=== PATIENT | male | born 1955 | race Caucasian/White ===

== ENCOUNTER 2017-05-18 17:28 | Inpatient (IN) ==
[2017-05-18] MEDS ORDERED: Naloxone 0.4 MG/ML INJ IVP PRN (21:56)
[2017-05-18] MEDS ORDERED: Furosemide 20 MG TABLET PO ONE (22:08)
--- NOTE | 2017-05-18 22:10 | Internal Med History&Physical ---
<Rand Gregorio - Last Filed: 05/18/17 23:12> Date of Encounter: 05/18/17 Time of Encounter: 21:20 Assessment and Plan (1) Anemia Current visit: Yes Status: Acute Symptomatic Anemia. Hemoglobin 4.3, received 1 unit PRBC at [facility]. Shortness of breathe resolved since transfusion. Dizziness and headache. May be iron deficiency or anemia of chronic dz, Suspect malignancy. Diet may contribute as well since he eats 1 meal a day. MCV 90, RDW 20.2, Bilirubin 1.2 Vital signs stable, patient has no complaints Stool occult negative No active bleeding Ct Abd demonstrated sclerotic lesions in chest, abdomen, pelvis. 0.5cm pulmonary nodule in right lower lung. plan: 2 units PRBC ordered EGD tomorrow by Dr. Shane NPO one time dose lasix ordered iron panel, ferritin, LDH, haptoglobin, reticuloctyes, B12, folate Consult Hem/ Onc tomorrow morning Qualifiers: Anemia type: unspecified type Qualified Code(s): D64.9 - Anemia, unspecified (2) Suspected malignant neoplasm Current visit: Yes Status: Acute Pancytopenia. Consider prostate cancer. Abd CT demonstrated sclerotic lesions in chest, abdomen, pelvis. 0.5cm pulmonary nodules in right lower lung. Smoker 1ppd/ 30years colonoscopy 5years ago with 1 benign polyp Ca 8.2 minimal low, Alk phos 53 Plan: check PSA Consult Hem/onc see plan above (3) Pancytopenia Current visit: No Status: Acute Pancytopenia of unknown origin, suspect malignancy. Consider prostate cancer. Hgb 4.3 platelets [address] Abd demonstrated sclerotic lesions in chest, abdomen, pelvis. 0.5cm pulmonary nodule in right lower lung. see plan above (4) Anxiety Current visit: Yes Status: Acute history of anxiety and depression continue home xanax and citalopram (5) Tobacco abuse Current visit: Yes Status: Acute current smoker 1ppd/ 30years (6) DVT prophylaxis Current visit: Yes Status: Acute ambulatory TID Internal Medicine - H&P: HPI Chief complaint: shortness of breathe Admitted From: Home Plans for Post Hospital Care: Home History of present illness: Mr. Lopez is a 61 year old male with a past medial history of depression and anxiety who presents to the hospital from [facility] by EMS complaining of shortness of breathe. He stated that it started 2 weeks ago and has been progressively getting worse. He stated that exerting himself makes it worse and that rest makes it better. He reported dizziness, non productive cough, and headaches (everyday, relieved with excedrin). He reported 2 days of leg cramping that resolved with oral hydration. He went to his PCP yesterday and had blood work drawn, for which his PCP called him today and instructed him to go to the hospital due to low hemoglobin. He only eats one meal a day. He reports bilateral inguinal lymphadenopathy that has been biopsied and is benign. He denied fever, chills, night sweats, hemoptysis, wheezing, abdominal pain, melena, weakness, syncope, hematuria, dysuria, significant weight decrease. He had a colonoscopy 5 years ago and had a benign polyp. He denies family history of cancer or heart disease. Current smoker 1ppd/ 30 years. He denied recent sickness or travel. He is a full code. Past Med Surg Social Fam HX - Past Medical History Medical history: no medical history Psychiatric history: anxiety, depression - Past Surgical History Surgical History: orthopedic, other (right ankle ) - Social History Smoking Status: Current every day smoker (1ppd/ 30years) Packs per day: 1 Smokeless Tobacco Status: No Alcohol use: none Drug use: none Current living situation: Home Activity Level: Independent ambulation Recent Out of Country Travel Within the Last 8 Weeks: No - Family History Grandmother Living Status: Hx Family Cancer: Yes (colon cancer) Internal Medicine - H&P: Meds Alprazolam [Xanax] 2 mg PO TID 05/18/17 [History] Citalopram Hydrobromide [Citalopram HBr] 40 mg PO DAILY 05/18/17 [History] 3 Allergy/AdvReac Type Severity Reaction Status Date / Time No Known Allergies Allergy Verified 05/18/17 15:37 All Systems PM: A 10-system review of systems was performed and is negative for pertinent findings except as documented above in the HPI. - Constitutional Constitutional: no chills, no fever(s), no night sweats, no weakness - EENT Eyes: no blurry vision, no change in vision Nose, mouth and throat: no dysphagia, no mouth lesions, no odynophagia - Cardiovascular Cardiovascular ROS IM: no chest pain, no diaphoresis, no palpitations, no syncope - Respiratory Respiratory: cough, dyspnea on exertion, no hemoptysis, no wheezing, no excessive phlegm production - Gastrointestinal Gastrointestinal: no abdominal pain, no diarrhea, no hematemesis, no hematochezia, no melena, no nausea, no vomiting - Genitourinary Genitourinary ROS male: no difficulty urinating, no dysuria, no hematuria - Musculoskeletal Musculoskeletal ROS IM: muscle cramps, no back pain, no muscle weakness - Integumentary Integumentary IM: no rash, no skin ulcer - Neurological Neurological ROS: dizziness, headache(s), no confusion, no frequent falls - Constitutional Vitals: Temp Pulse Resp BP Pulse Ox 98 F 79 20 133/79 98 05/18/17 20:17 05/18/17 20:17 05/18/17 20:17 05/18/17 20:17 05/18/17 20:17 General appearance: Present: A&O X 3, pleasant, no acute distress - Head Head exam: Present: atraumatic, normal inspection, normocephalic - Eye Eye exam: Present: conjuntiva pink - Neck Neck exam general surgery: Present: normal inspection, supple. Absent: lymphadenopathy, tenderness - Respiratory Respiratory exam: Present: CTAB. Absent: rales, rhonchi, wheezes - Cardiovascular Cardiovascular exam: Present: RRR, +S1, +S2. Absent: rubs, systolic murmur - GI/Abdominal GI/Abdominal exam: Present: normal bowel sounds, soft. Absent: guarding, tenderness - Extremities Exam Extremities exam: Present: normal inspection. Absent: joint swelling, pedal edema, tenderness - Back Exam Back exam: Present: normal inspection. Absent: CVA tenderness (L), CVA tenderness (R), paraspinal tenderness, tenderness, vertebral tenderness - Neurological Exam Neurological exam: Present: alert, oriented X3. Absent: altered, no focal deficits - Skin Skin exam: Present: dry, intact. Absent: petechiae, rash <Kosta Henderson - Last Filed: 05/18/17 23:34> Date of Encounter: 05/18/17 Internal Medicine - H&P: HPI History of present illness: Mr. Lopez is a 61 year old male All Systems PM: A 10-system review of systems was performed and is negative for pertinent findings except as documented above in the HPI. - Constitutional Vitals: Temp Pulse Resp BP Pulse Ox 98.2 F 75 20 112/70 98 05/18/17 23:11 05/18/17 23:11 05/18/17 23:11 05/18/17 23:11 05/18/17 23:11 - Attending Attestation I conducted a face to face diagnostic evaluation of this patient and my medical decision-making was reviewed with the Resident Physician, Dr. Rand Gregorio. I agree with the documented findings, disposition and treatment plan as described except to the extent set forth below: Patient presented to the hospital sent from his PCP due to low blood hemoglobin. He reports progressively worsening shortness of breath, worse with minimal exertion over the last 2 weeks. On exam he is in no acute distress. Heart is regular S1 and S2 with no murmurs. Lungs are clear. There is abnormal right inguinal adenopathy. Plan: Transfuse total of 3 units PRBC, he has received first unit at outside facility. Nothing by mouth past midnight for EGD. Consult hematology oncology. I have advised smoking cessation.
[2017-05-18] MEDS: ALPRAZolam 1 MG TABLET PO SCH (22:38)
[2017-05-18 22:55] LABS: Immature Reticulocyte % 13.8 % (11.0-38.0); Retculocyte # 0.01 M/mcL (0.05-0.10); Reticulocyte % 0.5 % (1.6-2.8)
[2017-05-18 23:02] LABS: % Iron Saturation 80 % (20-55); Iron 209 mcg/dL (65-175); Lactate Dehydrogenase 283 Units/L (159-327); Transferrin 186 mg/dL (174-364)
[2017-05-18 23:22] LABS: Ferritin 639 ng/ml (22-275)
[2017-05-18 23:25] LABS: Prostate Specific Antigen 2.28 ng/mL (0.00-4.00)
[2017-05-18 23:43] LABS: Folate 16.1 ng/mL (7.0-31.4)
[2017-05-19] MEDS ORDERED: 0.9 % Sodium Chloride 250 ML ONE ×2 (00:42→04:51)
[2017-05-19] MEDS ORDERED: Acetaminophen 325 MG TABLET PO ONE (06:39)
[2017-05-19] MEDS: ALPRAZolam 1 MG TABLET PO SCH ×3 (07:56→22:49)
[2017-05-19] MEDS ORDERED: Ketorolac 30 MG/ML VIAL IVP ONE (08:26)
[2017-05-19 11:34] LABS: Hematocrit 21.2 % (37.5-50.1); Mean Corpuscular Volume 87.6 fL (83.0-100.0); Red Blood Count 2.42 M/mcL (4.19-5.50); Red Cell Distribution Width 16.2 % (11.5-14.5)
[2017-05-19 11:36] LABS: Hemoglobin 7.3 g/dL (12.9-16.9); Mean Corpuscular HGB Conc 34.4 g/dL (31.6-35.5); Mean Corpuscular Hemoglobin 30.2 pg (28.0-33.3); Nucleated Red Blood Cells 1.5 /100 WBC (0)
--- NOTE | 2017-05-19 11:37 | Gastroenterology Consult Note ---
<Clinton Parker - Last Filed: 05/19/17 14:22> Date of Encounter: 05/19/17 Time of Encounter: 14:13 - Assessment and plan (1) Anemia Current Visit: Yes Status: Acute Assessment and plan: Normocytic anemia. Patient does not have any signs of active bleeding. Fecal occult test negative. Signs of iron overload in setting of anemia.B12, folate WNL At this point there is no plan for EGD/colonoscopy. Patient is being worked up by oncology low reticulocyte count indicates anemia likely 2nd to poor erythropoiesis. Qualifiers: Anemia type: unspecified type Qualified Code(s): D64.9 - Anemia, unspecified (2) Pancytopenia Current Visit: Yes Status: Acute Assessment and plan: patient being worked up mds, multiple myeloma bone marrow biopsy and peripheral smear pending. concern for malignancy: CT scan abdomen/pelvis show sclerotic lesions - Time Spent With Patient Total time spent is greater than 50% in coordination of care (as documented) at patient's floor/unit and/or counseling patient: GI History of Present Illness - Data of Consult Patient: new to practice Consult date: 05/19/17 Requesting Physician: Terry Vazquez - Consult Narrative Reason for consult: anemia History of present illness: Mr. Lopez is a 61 year old male presented from [place] ED after being found by her PCP to have hemoglobin of 4.3. For the past 2 weeks patient has had progressive shortness of breath and increased weakness. Furthermore he has had cramps from his lower back down to lower extremity bilaterally which worsened at night. States his shortness of breath became severe and he would not be able to walk up stairs. He is not able to lift back for groceries. Patient denies nausea, vomiting, hemoptysis, hematemesis, diarrhea, hematochezia, abdominal pain. Reports 5 pound weight loss in the last 6 months. Patient has 12-binn-dhto history of smoking. He had a colonoscopy 5 years ago which was negative for malignancy. Reports grandmother having colon cancer but denies cancer history in parents, siblings. Denies use of IV drugs, alcohol. Patient also states he only eats one meal a day but reports this is because he does not like eating his mother's cooked food. Denies early satiety. Past Med Surg Social Fam HX - Past Medical History Medical history: no medical history Psychiatric history: anxiety, depression - Past Surgical History Surgical History: orthopedic, other (right ankle ) - Social History Smoking Status: Current every day smoker (1ppd/ 30years) Packs per day: 1 Smokeless Tobacco Status: No Alcohol use: none Drug use: none - Family History Grandmother Living Status: Hx Family Cancer: Yes (colon cancer) Review of Systems: Constitutional: Denies fever, chills HEENT: Denies headache, vision changes, neck pain, sore throat, rhinorrhea Heart: Denies chest pain palpitations Lungs: Reports shortness of breath, denies cough Abdomen: Denies abdominal pain nausea vomiting diarrhea Back: Denies back pain Kidney: Denies dysuria, hematuria Skin: warm and dry Extremities: Denies swelling, pain Musculoskeletal: Reports cramping in bilateral lower extremities and back. Neuro: Denies numbness, and tingling - Constitutional Vitals: Temp Pulse Resp BP Pulse Ox 98.5 F 75 15 106/62 99 05/19/17 11:18 05/19/17 11:18 05/19/17 11:18 05/19/17 11:18 05/19/17 11:18 - Other Additional findings: General: Pleasant without distress HEENT: Head atraumatic, normocephalic, EOMI, PERRL, neck nontender to palpation , absent lymphadenopathy, Moist Mucous Membranes, Heart: Regular rate and rhythm with no murmur Lungs: Clear to auscultation bilaterally Abdomen: Soft nontender, nondistended positive bowel sounds Skin: warm and dry Extremities: Absent pedal edema, Neuro: Cranial nerves II through XII intact, UE and LE sensation equal bilaterally, UE and LEstrength 5/5, alert oriented 3, Vascular: Pedal and radial pulses 2 out of 4 Results - Labs CBC & Chem 7: 05/19/17 11:17 05/19/17 11:17 Labs: Last Result Iron 209 mcg/dL (65-175) H 05/18/17 22:38 % Saturation 80 % (20-55) H 05/18/17 22:38 Transferrin 186 mg/dL (174-364) 05/18/17 22:38 Ferritin 639 ng/ml (22-275) H 05/18/17 22:38 Vitamin B12 766 pg/mL (213-816) 05/18/17 22:38 Folate 16.1 ng/mL (7.0-31.4) 05/18/17 22:38 Entire Visit Ferritin 639 ng/ml (22-275) H 05/18/17 22:38 Folate 16.1 ng/mL (7.0-31.4) 05/18/17 22:38 Consult Discharge Plan - Plan Referrals: Getachew Fraser MD [Primary Care Provider] - 06/09/17 1:20 pm <Zac Lopez - Last Filed: 05/19/17 19:07> Date of Encounter: 05/19/17 Time of Encounter: 18:00 - Time Spent With Patient Total time spent is greater than 50% in coordination of care (as documented) at patient's floor/unit and/or counseling patient: GI History of Present Illness - Data of Consult Requesting Physician: Terry Vazquez - Consult Narrative History of present illness: Mr. Lopez is a 61 year old male - Constitutional Vitals: Temp Pulse Resp BP Pulse Ox 98.2 F 67 15 97/63 99 05/19/17 15:27 05/19/17 15:27 05/19/17 15:27 05/19/17 15:27 05/19/17 15:27 Results - Labs CBC & Chem 7: 05/19/17 11:17 05/19/17 11:17 Labs: Last Result Calcium 7.8 mg/dL (8.6-10.8) L 05/19/17 11:17 Iron 209 mcg/dL (65-175) H 05/18/17 22:38 % Saturation 80 % (20-55) H 05/18/17 22:38 Transferrin 186 mg/dL (174-364) 05/18/17 22:38 Ferritin 639 ng/ml (22-275) H 05/18/17 22:38 Vitamin B12 766 pg/mL (213-816) 05/18/17 22:38 Folate 16.1 ng/mL (7.0-31.4) 05/18/17 22:38 Entire Visit Hgb 7.3 g/dL (12.9-16.9) L D 05/19/17 11:17 Hct 21.2 % (37.5-50.1) L 05/19/17 11:17 Ferritin 639 ng/ml (22-275) H 05/18/17 22:38 Folate 16.1 ng/mL (7.0-31.4) 05/18/17 22:38 - Attending Attestation I examined this patient and my medical decision-making was reviewed with the Resident Physician. I agree with the documented findings, disposition and treatment plan as described except to the extent set forth below. With pancytopenia most probably due to bone marrow suppression. No obvious signs symptom of GI bleeding. At this point we will wait for oncology workup and there is no plan for scopes at this point
[2017-05-19 11:39] LABS: Platelet Count 31 K/mcL (140-400)
[2017-05-19 11:49] LABS: BUN/Creatinine Ratio 19 (6-26); Blood Urea Nitrogen 15 mg/dL (8-26); Calcium 7.8 mg/dL (8.6-10.8); Carbon Dioxide 17 mEq/L (19-29); Chloride 114 mEq/L (98-109); Glucose 100 mg/dL (70-99); Osmolality,Calculated 289 (280-300); Potassium 3.5 mEq/L (3.5-4.5); Sodium 139 mEq/L (136-145); eGFR For African Americans > 60 (> 60); eGFR For Non-African Americans > 60 (> 60)
[2017-05-19 12:18] LABS: Lymphocytes # 0.6 K/mcL (0.6-4.6); Monocytes # 0.1 K/mcL (0.0-1.3); Neutrophils # 1.5 K/mcL (1.6-8.9); Platelet Estimate Marked Decrease (Normal); Polychromasia 1+ (Not Present)
[2017-05-19 12:19] LABS: Schistocytes 1+ (Not Present)
--- NOTE | 2017-05-19 13:49 | Oncology Inp Consult Note ---
<Sanna Desai L - Last Filed: 05/19/17 15:46> Date of Encounter: 05/19/17 Time of Encounter: 12:00 Assessment and Plan (1) Pancytopenia Status: Acute Assessment and plan: On presentation to [place] ER hemoglobin critically low at 4.3. Following transfusion of one unit PRBC at [facility] and 2 units PRBC at [facility], hemoglobin now 7.3 today. Etiology of pancytopenia unknown at this time Noted leukopenia and mild neutropenia with ANC 1.5. If ANC decreases below 0.5 may consider neutropenic precautions. Reticulocyte count low which more than likely indicates ineffective erythropoiesis. Considering his degree of pancytopenia on presentation myelodysplastic syndrome may be highly suspected at this time. Workup for multiple myeloma currently pending with SPEP, serum free light chains, peripheral smear, and order for IR bone biopsy. Appreciate workup thus far completed by hospitalist group for anemia. Serum vitamin B12, folate and TSH results have been normal, with notably increased iron, iron saturation and ferritin. PSA within normal limits at 2.28. Iron overload with associated anemia may be secondary to the setting of malignancy. Patient denies symptoms of acute blood loss, he will have EGD in a.m. Colonoscopy up-to-date within the past 5 years. Thrombocytopenia has decreased further since admission with platelet counts at 56 on 05/18/2017 and now decreased to [address] of the chest abdomen and pelvis demonstrated sclerotic lesions in chest, abdomen and pelvis in 0.5 cm pulmonary nodule and right lower lung. Transfusion can be ordered with a goal to keep hemoglobin greater than 7 or platelets greater than 10, we will continue to monitor at this time. Please refer to Dr. Lorenzo's attestation below for further details. - Data of Consult Requesting Physician: Terry Vazquez Primary Care Provider: Getachew Fraser MD - Consult Narrative History of present illness: Mr. Lopez is a 61 year old male with a past medical history of depression and anxiety who presented to the [facility] ED. Over the past 2 weeks he has experienced significant and progressive lower extremity muscle cramps, weakness , headache and vertigo. His weakness and shortness of breath increased to the point that he was unable to perform his job and at this point he decided to notify his PCP with his symptoms. PCP sent him for routine lab work where significant pancytopenia was discovered. He was then asked to present to the ER and was later transferred to [facility]. Patient reports he has been relatively healthy 50 exception of residing depression which is managed by xanax and citalopram. He reports no signs or symptoms of acute bleeding such as hematochezia, epistaxis, or hematuria. He has reportedly had a colonoscopy within the last 5 years which was negative for malignancy. He is a current smoker one pack per day for 30 years. He denies drug or alcohol abuse. CT abdomen and pelvis on admission identified sclerotic lesions in chest, abdomen, and pelvis along with a 0.5 cm pulmonary nodule in the right lower lung. He denies breathing difficulty other than shortness of breath with which was relieved with recent blood transfusion, denies hemoptysis. He does report about a 5 pound weight loss over the past 6 months with accompanied anorexia, he eats about 1 meal per day. He reports that 10 years ago he had concern over inguinal lymphadenopathy which was reportedly biopsied and negative for malignancy. Past Med Surg Social Fam HX - Past Medical History Medical history: no medical history Psychiatric history: anxiety, depression - Past Surgical History Surgical History: orthopedic, other (right ankle ) - Social History Smoking Status: Current every day smoker (1ppd/ 30years) Packs per day: 1 Smokeless Tobacco Status: No Alcohol use: none Drug use: none - Family History Grandmother Living Status: Hx Family Cancer: Yes (colon cancer) Medications and Allergies Alprazolam [Xanax] 2 mg PO TID 05/18/17 [History] Citalopram Hydrobromide [Citalopram HBr] 40 mg PO DAILY 05/18/17 [History] 3 Allergy/AdvReac Type Severity Reaction Status Date / Time No Known Allergies Allergy Verified 05/18/17 15:37 Constitutional: Present: anorexia, fatigue, headache(s), weight loss. Absent: fever(s), frequent falls, night sweats Cardiovascular: Present: dyspnea. Absent: chest pain, edema Respiratory: Present: dyspnea. Absent: cough, excessive phlegm production Gastrointestinal: Absent: abdominal pain, constipation, diarrhea, hematochezia, nausea Additional comments: Denies dysuria or hematuria Musculoskeletal: Present: muscle cramps, muscle weakness. Absent: abnormal gait Integumentary: Absent: unusual bruising Neurological: Present: vertigo, weakness. Absent: loss of vision, paresthesias Psychiatric: Present: anxiety Endocrine: Present: fatigue Hematologic/Lymphatic: Absent: lymphadenopathy Oncology - Exam - Constitutional Vitals: Temp Pulse Resp BP Pulse Ox 98.5 F 75 15 106/62 99 05/19/17 11:18 05/19/17 11:18 05/19/17 11:18 05/19/17 11:18 05/19/17 11:18 - Head Head exam: Present: atraumatic, normal inspection - Eye Eye exam: Present: EOMI - ENT ENT exam: Present: mucous membranes moist - Neck Neck exam: Present: full ROM. Absent: lymphadenopathy - Respiratory Respiratory exam: Present: CTAB Additional comments: LS Slightly decreased - Cardiovascular Cardiovascular exam: Present: RRR. Absent: diastolic murmur, systolic murmur - GI/Abdominal GI/Abdominal exam: Present: normal bowel sounds, soft. Absent: tenderness - Extremities Exam Extremities exam: Present: full ROM. Absent: calf tenderness, joint swelling, pedal edema - Neurological Exam Neurological exam: Present: alert, oriented X3, strengths equal and symetr throughout - Skin Skin exam: Present: intact, normal color Oncology - Results Labs: Short CBC 05/19/17 Range/Units 11:17 WBC 2.1 L (4.3-11.1) K/mcL Hgb 7.3 L D (12.9-16.9) g/dL Hct 21.2 L (37.5-50.1) % Plt Count 31 L (140-400) K/mcL Neutrophils # 1.5 L (1.6-8.9) K/mcL BMP 05/19/17 11:17 Sodium 139 Potassium 3.5 Chloride 114 H Carbon Dioxide 17 L BUN 15 Creatinine 0.77 Glucose 100 H Calcium 7.8 L Consult Discharge Plan - Plan Referrals: Getachew Fraser MD [Primary Care Provider] - 06/09/17 1:20 pm <Ganesh Lorenzo - Last Filed: 05/19/17 17:34> Date of Encounter: 05/19/17 Assessment and Plan (1) Pancytopenia Status: Acute - Data of Consult Requesting Physician: Terry Vazquez Primary Care Provider: Getachew Fraser MD - Consult Narrative History of present illness: Mr. Lopez is a 61 year old male Oncology - Exam - Constitutional Vitals: Temp Pulse Resp BP Pulse Ox 98.2 F 67 15 97/63 99 05/19/17 15:27 05/19/17 15:27 05/19/17 15:27 05/19/17 15:27 05/19/17 15:27 Oncology - Results Labs: Short CBC 05/19/17 Range/Units 11:17 WBC 2.1 L (4.3-11.1) K/mcL Hgb 7.3 L D (12.9-16.9) g/dL Hct 21.2 L (37.5-50.1) % Plt Count 31 L (140-400) K/mcL Neutrophils # 1.5 L (1.6-8.9) K/mcL BMP 05/19/17 11:17 Sodium 139 Potassium 3.5 Chloride 114 H Carbon Dioxide 17 L BUN 15 Creatinine 0.77 Glucose 100 H Calcium 7.8 L - Attending Attestation I examined this patient and my medical decision-making was reviewed with the Advanced Practice Nurse. I agree with the documented findings, disposition and treatment plan as described except to the extent set forth below. Mr. Lopez is a previously healthy 61-year-old gentleman who presents with pancytopenia. He has leukopenia without neutropenia, profound anemia and worsening thrombocytopenia. In addition, he has been noted to have sclerotic foci involving the bone on CT chest abdomen and pelvis without other son organ abnormality. His admitting team has done a very thorough evaluation excluding nutritional deficiencies, thyroid dysfunction. We also assessed for metastatic prostate cancer with certainly could present this way with a PSA measuring 2.28. We have performed evaluation for underlying paraproteinemia with a serum protein pheresis, immunofixation and serum free light chain. I have also ordered a bone marrow aspirate and biopsy. My concern he may have acute leukemia. Other considerations include myelofibrosis or a marrow infiltrative process from a metastatic malignancy but he is without an leukoerythroblastic reaction. Pending these evaluation, recommend maintaining his platelet count above 10,000 and his hemoglobin above 7. We will continue to follow. Denies to call my cell phone at [phone] with concerns or questions. Bone marrow is safe even with this gentleman's platelet count, there is no need to wait or transfuse platelets
--- NOTE | 2017-05-19 19:18 | Internal Med Progress Note ---
Date of Encounter: 05/19/17 Time of Encounter: 11:00 - Assessment and plan (1) Anemia Current Visit: Yes Status: Acute Assessment and plan: -Hematology/oncology consulted with recommendations w/u for myelodysplastic syndrome; SPEP, serum free light chains, peripheral smear, and order for IR bone biopsy. -Will continue blood transfusions to keep hemoglobin greater than 7 Qualifiers: Anemia type: unspecified type Qualified Code(s): D64.9 - Anemia, unspecified (2) Suspected malignant neoplasm Current Visit: Yes Status: Acute Assessment and plan: -Hematology/oncology following. Appreciate recommendations. (3) Anxiety Current Visit: Yes Status: Acute Assessment and plan: -Continue home medications. (4) Pancytopenia Current Visit: Yes Status: Acute Assessment and plan: -Will continue to monitor. - Subjective Interval history: No acute events overnight - Constitutional Vitals: Temp Pulse Resp BP Pulse Ox 98.2 F 67 15 97/63 99 05/19/17 15:27 05/19/17 15:27 05/19/17 15:27 05/19/17 15:27 05/19/17 15:27 General appearance: Present: A&O X 3, pleasant, no acute distress - Respiratory Respiratory exam: Present: accessory muscle use - Cardiovascular Cardiovascular exam: Present: RRR, +S1, +S2. Absent: diastolic murmur, gallop, rubs, systolic murmur Internal Medicine: Result - Labs CBC & Chem 7: 05/19/17 11:17 05/19/17 11:17 Labs: Short CBC 05/19/17 Range/Units 11:17 WBC 2.1 L (4.3-11.1) K/mcL Hgb 7.3 L D (12.9-16.9) g/dL Hct 21.2 L (37.5-50.1) % Plt Count 31 L (140-400) K/mcL Neutrophils # 1.5 L (1.6-8.9) K/mcL BMP 05/19/17 11:17 Sodium 139 Potassium 3.5 Chloride 114 H Carbon Dioxide 17 L BUN 15 Creatinine 0.77 Glucose 100 H Calcium 7.8 L Consult Discharge Plan - Plan Referrals: Getachew Fraser MD [Primary Care Provider] - 06/09/17 1:20 pm
[2017-05-20 08:27] LABS: Red Blood Count 2.41 M/mcL (4.19-5.50)
[2017-05-20 08:28] LABS: Hematocrit 21.2 % (37.5-50.1); Hemoglobin 7.3 g/dL (12.9-16.9); Mean Corpuscular HGB Conc 34.4 g/dL (31.6-35.5); Mean Corpuscular Hemoglobin 30.3 pg (28.0-33.3); Red Cell Distribution Width 16.9 % (11.5-14.5)
[2017-05-20 08:29] LABS: Platelet Count 42 K/mcL (140-400)
[2017-05-20 08:50] LABS: BUN/Creatinine Ratio 18 (6-26); Blood Urea Nitrogen 14 mg/dL (8-26); Calcium 7.5 mg/dL (8.6-10.8); Carbon Dioxide 19 mEq/L (19-29); Chloride 113 mEq/L (98-109); Glucose 110 mg/dL (70-99); Osmolality,Calculated 287 (280-300); Sodium 138 mEq/L (136-145); eGFR For African Americans > 60 (> 60); eGFR For Non-African Americans > 60 (> 60)
[2017-05-20] MEDS: ALPRAZolam 1 MG TABLET PO SCH ×3 (09:15→20:38)
[2017-05-20 09:16] LABS: Lymphocytes # 0.9 K/mcL (0.6-4.6); Monocytes # 0.1 K/mcL (0.0-1.3); Neutrophils # 0.9 K/mcL (1.6-8.9)
[2017-05-20 09:17] LABS: Platelet Estimate Marked Decrease (Normal); Tear Drop Cells 1+ (Not Present)
[2017-05-20 09:18] LABS: Poikilocytosis 2+ (Not Present); Schistocytes 1+ (Not Present)
[2017-05-20 09:19] LABS: Anisocytosis 1+ (Not Present)
[2017-05-20 09:20] LABS: Spherocytes 1+ (Not Present)
[2017-05-20] MEDS ORDERED: Ketorolac 30 MG/ML VIAL IVP ONE (15:40)
--- NOTE | 2017-05-20 20:31 | Internal Med Progress Note ---
Date of Encounter: 05/20/17 Time of Encounter: 11:00 - Assessment and plan (1) Anemia Current Visit: Yes Status: Acute Assessment and plan: -Hematology/oncology consulted with recommendations w/u for myelodysplastic syndrome; SPEP, serum free light chains, peripheral smear, and order for IR bone biopsy. -Will continue blood transfusions to keep hemoglobin greater than 7 Qualifiers: Anemia type: unspecified type Qualified Code(s): D64.9 - Anemia, unspecified (2) Suspected malignant neoplasm Current Visit: Yes Status: Acute Assessment and plan: -Hematology/oncology following. Appreciate recommendations. (3) Anxiety Current Visit: Yes Status: Acute Assessment and plan: -Continue home medications. (4) Pancytopenia Current Visit: Yes Status: Acute Assessment and plan: -Will continue to monitor. - Subjective Interval history: No acute events overnight - Constitutional Vitals: Temp Pulse Resp BP Pulse Ox 97.8 F 60 16 122/73 97 05/20/17 15:28 05/20/17 15:28 05/20/17 15:28 05/20/17 15:28 05/20/17 15:28 General appearance: Present: A&O X 3, pleasant, no acute distress - Respiratory Respiratory exam: Present: CTAB. Absent: accessory muscle use, rales, rhonchi, wheezes - Cardiovascular Cardiovascular exam: Present: RRR, +S1, +S2. Absent: diastolic murmur, gallop, rubs, systolic murmur Internal Medicine: Result - Labs CBC & Chem 7: 05/20/17 08:14 05/20/17 08:14 Labs: Short CBC 05/20/17 Range/Units 08:14 WBC 1.8 L (4.3-11.1) K/mcL Hgb 7.3 L (12.9-16.9) g/dL Hct 21.2 L (37.5-50.1) % Plt Count 42 L (140-400) K/mcL Neutrophils # 0.9 L (1.6-8.9) K/mcL BMP 05/20/17 08:14 Sodium 138 Potassium 4.0 Chloride 113 H Carbon Dioxide 19 BUN 14 Creatinine 0.76 Glucose 110 H Calcium 7.5 L - VTE Documentation of Mechanical Device: Intermittent pneumatic compression device Consult Discharge Plan - Plan Referrals: Getachew Fraser MD [Primary Care Provider] - 12/13/17 1:20 pm
[2017-05-21 07:00] LABS: Alpha 2 Globulin (PEP) 0.53 g/dL (0.48-1.05); Beta Globulin (PEP) 0.62 g/dL (0.48-1.10)
[2017-05-21 07:41] LABS: IFE Reflexed NOT DONE
[2017-05-21 08:31] LABS: BUN/Creatinine Ratio 16 (6-26); Blood Urea Nitrogen 12 mg/dL (8-26); Calcium 7.7 mg/dL (8.6-10.8); Carbon Dioxide 23 mEq/L (19-29); Chloride 114 mEq/L (98-109); Glucose 98 mg/dL (70-99); Osmolality,Calculated 290 (280-300); Potassium 4.4 mEq/L (3.5-4.5); Sodium 140 mEq/L (136-145); eGFR For African Americans > 60 (> 60); eGFR For Non-African Americans > 60 (> 60)
[2017-05-21 08:48] LABS: Hematocrit 20.7 % (37.5-50.1); Hemoglobin 7.2 g/dL (12.9-16.9); Immature Platelets 8.2 % (1.1-6.1); Mean Corpuscular HGB Conc 34.8 g/dL (31.6-35.5); Mean Corpuscular Hemoglobin 30.6 pg (28.0-33.3); Mean Corpuscular Volume 88.1 fL (83.0-100.0); Nucleated Red Blood Cells 1.6 /100 WBC (0); Red Blood Count 2.35 M/mcL (4.19-5.50); Red Cell Distribution Width 16.5 % (11.5-14.5)
[2017-05-21 09:01] LABS: Platelet Count 28 K/mcL (140-400)
[2017-05-21 09:05] LABS: Lymphocytes # 1.1 K/mcL (0.6-4.6); Monocytes # 0.3 K/mcL (0.0-1.3); Neutrophils # 1.2 K/mcL (1.6-8.9)
[2017-05-21 09:06] LABS: Anisocytosis 1+ (Not Present); Ovalocytes 2+ (Not Present); Platelet Estimate Marked Decrease (Normal); Poikilocytosis 2+ (Not Present)
[2017-05-21 09:07] LABS: Schistocytes 1+ (Not Present)
[2017-05-21] MEDS: ALPRAZolam 1 MG TABLET PO SCH ×2 (09:18→16:57)
--- NOTE | 2017-05-21 10:22 | Oncology Inp Progress Note ---
Date of Encounter: 05/21/17 Time of Encounter: 12:00 (1) Pancytopenia Current Visit: Yes Status: Acute Assessment and plan: LAbs severe pancytopenia, B12, folate, TSH, SPEP normal. Clinically veery stable Possible ac leukemia/MDS. BM bx today--confirmed appt with IR. Discussed with Dr Michelle, will transfuse plt immediately pre-procedure. Plan reviewed with patient bed side Oncology: Subj Interval history: no complaints - Constitutional Vitals: Vital Signs Temp Pulse Resp BP Pulse Ox 05/21/17 06:53 78 18 109/74 96 05/21/17 03:22 71 15 109/74 96 05/20/17 21:08 98.6 F 72 15 114/71 97 05/20/17 15:28 97.8 F 60 16 122/73 97 Intake and Output 05/20/17 05/21/17 05/21/17 23:59 07:59 15:59 Intake Total 480 / 480 Output Total 500 / 500 Balance -20 / -20 Intake: Oral 480 / 480 Output: Urine 500 / 500 Other: Meal Breakfast Percent of Meal Consumed 80% General appearance: average body habitus - Head Head exam: Present: atraumatic, normal inspection - Eye Eye exam: Present: sclera anicteric - ENT ENT exam: Present: mucous membranes moist - Respiratory Respiratory exam: Present: CTAB - Cardiovascular Cardiovascular exam: Present: +S1, +S2 - GI/Abdominal GI/Abdominal exam: Present: normal bowel sounds, soft - Extremities Exam Extremities exam: Present: normal inspection - Neurological Exam Neurological exam: Present: alert, oriented X3, no focal deficits Oncology: Obj Data - Labs CBC & Chem 7: 05/21/17 08:07 05/21/17 08:07 Labs: Laboratory Results - last 24 hr 05/18/17 05/19/17 05/21/17 22:38 11:17 08:07 WBC 2.5 L RBC 2.35 L Hgb 7.2 L Hct 20.7 L MCV 88.1 MCH 30.6 MCHC 34.8 RDW 16.5 H Plt Count 28 L* MPV TNP Seg Neutrophils % 44.0 Band Neutrophils % 2.0 Lymphocytes % 44.0 Monocytes % 10.0 Neutrophils # 1.2 L Lymphocytes # 1.1 Monocytes # 0.3 Nucleated RBCs/100 WBC 1.6 H Platelet Estimate Marked Decrease L Immature Plt Fraction 8.2 H Poikilocytosis 2+ A Anisocytosis 1+ A Ovalocytes 2+ A Schistocytes 1+ A Haptoglobin 87 Sodium Potassium Chloride Carbon Dioxide BUN Creatinine Est GFR ( Amer) Est GFR (Non-Af Amer) BUN/Creatinine Ratio Glucose Calculated Osmolality Calcium Prot Electrophor EER SEE NOTE Total Protein (PEP) 5.60 L Albumin (PEP) 3.06 L Ghbnf-4-Kmqkdcavd 0.38 Yvcib-7-Cwnnmygwg 0.53 Beta Globulins 0.62 Gamma Globulins 1.01 PEP Interpretation SEE NOTE Serum Immunofix Reflex NOT DONE IgG TNP IgA TNP IgM TNP 05/21/17 08:07 WBC RBC Hgb Hct MCV MCH MCHC RDW Plt Count MPV Seg Neutrophils % Band Neutrophils % Lymphocytes % Monocytes % Neutrophils # Lymphocytes # Monocytes # Nucleated RBCs/100 WBC Platelet Estimate Immature Plt Fraction Poikilocytosis Anisocytosis Ovalocytes Schistocytes Haptoglobin Sodium 140 Potassium 4.4 Chloride 114 H Carbon Dioxide 23 BUN 12 Creatinine 0.75 Est GFR ( Amer) > 60 Est GFR (Non-Af Amer) > 60 BUN/Creatinine Ratio 16 Glucose 98 Calculated Osmolality 290 Calcium 7.7 L Prot Electrophor EER Total Protein (PEP) Albumin (PEP) Chfth-2-Epdkpkcdn Zhteu-4-Bzvvzkukk Beta Globulins Gamma Globulins PEP Interpretation Serum Immunofix Reflex IgG IgA IgM Consult Discharge Plan - Plan Referrals: Getachew Fraser MD [Primary Care Provider] - 06/09/17 1:20 pm
[2017-05-21] MEDS ORDERED: 0.9 % Sodium Chloride 250 ML ONE (11:20)
[2017-05-21] MEDS ORDERED: *HR* FentaNYL (PF) 100 MCG/2 ML VIAL IVP ONE (13:17)
[2017-05-21] MEDS ORDERED: 0.9 % Sodium Chloride 500 ML ONE (13:25)
--- NOTE | 2017-05-21 13:42 | IR Procedure Note ---
Date of procedure: 05/21/17 Consent Obtained: Written consent Timeout: Correct patient and procedure verified, Time out performed, Skin prep completed Local anesthetic: Lidocaine 1% Indications: Pancytopenia Procedure Performed: Bone marrow asp/biopsy Results/Findings: No marrow able to be aspirated. Core bone biopsy obtained. Complications: None; Tolerated procedure well (Monitor on floor)
[2017-05-21 15:03] VITALS: BP 104/61
[2017-05-21 15:44] LABS: Kappa Qnt Free Light Chains 2.62 mg/dL (0.33-1.94); Lambda Qnt Free Light Chains 2.05 mg/dL (0.57-2.63)
--- NOTE | 2017-05-21 17:20 | Discharge Summary ---
Date of Encounter: 05/21/17 Time of Encounter: 11:00 - Discharge Diagnosis (1) Anemia Priority: Primary Status: Acute Qualifiers: Anemia type: unspecified type Qualified Code(s): D64.9 - Anemia, unspecified (2) Suspected malignant neoplasm Priority: Secondary Status: Acute (3) Anxiety Priority: Secondary Status: Acute (4) Pancytopenia Priority: Secondary Status: Acute - Discharge Medications Home Medications: Alprazolam [Xanax] 2 mg PO TID 05/18/17 [History] Citalopram Hydrobromide [Citalopram HBr] 40 mg PO DAILY 05/18/17 [History] Allergies/Adverse Reactions: 3 Allergy/AdvReac Type Severity Reaction Status Date / Time No Known Allergies Allergy Verified 05/18/17 15:37 Procedures/tests Complete & Pending: Procedures Performed prior 72 hours Category Date Time Status CT guided biopsy [CT] Routine Cat Scan 05/21/17 13:[address] biopsy bone marrow [CT] Routine Exams 05/21/17 17:32 Completed Date of admission: 05/18/17 19:54 Primary care physician: Getachew Fraser MD Consults: 05/18/17 22:47 Consult to Gastroenterology [CONS] Routine Consulting Provider: Gastroenterology Nikole Reason for Consult: hemoglobin 4.3 Call Completed: Yes 05/19/17 01:43 Consult to Oncology Hematology [CONS] Routine Consulting Provider: Hugo Smith Reason for Consult: suspect malignancy. Hgb4.[address] showed sclerotic lesions in chest, abdomen, pelvis Call Completed: No - Patient Status Disposition: Home, Self-Care - Discharge Instructions Follow Up With: Getachew Fraser MD [Primary Care Provider] - 06/09/17 1:20 pm Hospital course: Mr. Lopez is a 61 year old male - Time Spent with Patient Total time spent providing and/or coordinating discharge services: - Constitutional Vitals: Temp Pulse Resp BP Pulse Ox 97.9 F 75 20 104/61 98 05/21/17 17:03 05/21/17 17:03 05/21/17 17:03 05/21/17 17:03 05/21/17 15:01 General appearance: Present: A&O X 3, pleasant, no acute distress - VTE Documentation of Mechanical Device: Intermittent pneumatic compression device
== END 2017-05-21 19:34 | disposition home or self-care (01) | DRG 810 ==
LOC: SUATTDRO 19:54 → 2NENU 19:54
PROVIDERS: ADMIT Internal Medicine; ATTEND Hospitalist

== ENCOUNTER 2017-05-23 09:49 | Inpatient (IN) ==
[2017-05-23] MEDS ORDERED: 0.9 % Sodium Chloride 1,000 ML IVC ONE (09:56)
[2017-05-23] MEDS ORDERED: *HR* Morphine 2 MG/ML SYRINGE IVP ONE ×2 (09:57→22:08)
--- NOTE | 2017-05-23 10:13 | Emergency Department Note ---
Disposition Clinical Impression: Intractable pain Leg pain Qualifiers: Laterality: bilateral Qualified Code(s): M79.604 - Pain in right leg Anemia Qualifiers: Anemia type: unspecified type Qualified Code(s): D64.9 - Anemia, unspecified Disposition: Admitted As Inpatient Condition: Fair Time of Disposition: 13:24 General Adult HPI - General Chief complaint: ED Extremity Problem,Nontraumatic Stated complaint: LEG PAIN Time Seen by Provider: 05/23/17 09:53 Source: patient, EMS Mode of arrival: EMS Limitations: no limitations Nursing Notes Reviewed: Yes Vital Signs Reviewed: Yes - History of Present Illness HPI Narrative: 61-year-old male presents to the ED complaining of lower extremity pain. Patient states that his whole body from his waist down and feels like cramping and in a lot of pain. He was recently discharged from the hospital yesterday for anemia with possible myelodysplastic syndrome and is currently being worked up for possible cancer. Patient's hemoglobin was 4 prior to admission he got 3 blood transfusions. When he was discharged his last hemoglobin was 7.2. Patient states since he has been home he started using hot pads on his legs recently still cramping and not feeling well at all. He states the uncontrolled pain is the only reason he is here. He is having no other complaints at this time including chest pain, shortness of breath, fever, headache, blurry vision, abdominal pain, change in bowel or pain with urination or generalized weakness although he is having the pain he says it is located in his entire legs. Onset (ago): hour(s) (12-18 hours) Pain Scale: 10 - Related Data Home Medications Medication Instructions Recorded Confirmed Alprazolam [Xanax] 2 mg PO TID 05/18/17 05/23/17 Citalopram Hydrobromide 40 mg PO DAILY 05/18/17 05/23/17 [Citalopram HBr] Allergies Allergy/AdvReac Type Severity Reaction Status Date / Time No Known Allergies Allergy Verified 05/18/17 15:37 Review of Systems: 10 point review of systems done and negative unless otherwise stated in history of present illness. All systems ED: reviewed and negative except as stated. Review of Systems: As Per HPI Constitutional: Denies: fever Cardiovascular: Denies: chest pain, palpitations Respiratory: Denies: dyspnea Gastrointestinal: Denies: vomiting, diarrhea Past Medical History - Past Medical History Attestation: Yes The following information was validated with the patient. Medical history: Reports: no medical history Surgical history: Reports: orthopedic, other (right ankle ) Psychiatric history: Reports: anxiety, depression - Social History Smoking Status: Current every day smoker Smokeless Tobacco Status: No Alcohol use: Reports: rarely Drug use: Reports: none Physical Exam - General Limitations: no limitations General appearance: alert - Head Head exam: atraumatic, normocephalic, normal inspection - Eye Eye exam: Present: normal appearance, PERRL, EOMI - ENT ENT exam: normal exam, normal oropharynx, mucous membranes moist - Neck Neck exam: Present: normal inspection, full ROM, trachea midline - Chest Chest inspection: Present: normal inspection, symmetric chest wall rise - Respiratory Respiratory exam: Present: normal lung sounds bilaterally - Cardiovascular Cardiovascular exam: Present: regular rate, normal rhythm, normal heart sounds - Abdominal Exam Abdominal exam: Present: soft, Non-Tender, normal bowel sounds. Absent: tenderness, distention, guarding, rebound, rigidity - Extremities Exam Extremities exam: Present: normal inspection, full ROM, normal capillary refill. Absent: tenderness, pedal edema, calf tenderness - Expanded Lower Extremity Exam Hip/Pelvis exam: Present: normal inspection, full ROM. Absent: tenderness Upper leg exam: Present: normal inspection, full ROM. Absent: tenderness Knee exam: Present: normal inspection, full ROM. Absent: tenderness Lower leg exam: Present: normal inspection, full ROM. Absent: tenderness Ankle exam: Present: normal inspection, full ROM. Absent: tenderness Foot/toe exam: Present: normal inspection, full ROM. Absent: tenderness Neurovascular/Tendon exam: Absent: motor deficit, sensory deficit, tendon deficit - Back Exam Back exam: Present: normal inspection, full ROM. Absent: tenderness, CVA tenderness (R), CVA tenderness (L) - Neurological Exam Neurological exam: Present: alert, oriented X3 - Skin Skin exam: Present: warm, dry, intact, normal color Course Course Narrative: 7-year-old male sent to the ED for lower extremity pain feels like cramping. Recently discharged due to anemia possibly myelodysplastic syndrome. We will get basic labs including CBC, CMP, CK, calcium, mag and phosphate. We will place an IV and give patient IV fluids and morphine for pain control. Disposition pending lab results. - Reevaluation(s) Reevaluation #1: Patient is still complaining of pain in his legs. The morphine did not help so we will try 10 mg of Percocet to see if that helps with his pain. We will give him orally so he can take them in an outpatient setting. Time: 12:15 - Consultations Consultation #1: Consulted with hematology/oncology and spoke with Dr. Blanco. They said there is nothing needs to be done on their sign patient is a still sent to follow up with their office once the bone marrow biopsy comes back. They said patient needs to be admitted for pain control that would be fine otherwise patient felt like there was no recent Avenue him admitted as his labs have been stable. Time: 12:00 Vital Signs Temperature 98.1 F 05/23/17 09:52 Pulse Rate 81 05/23/17 09:52 Respiratory Rate 18 05/23/17 09:52 Blood Pressure 123/78 05/23/17 09:52 O2 Sat by Pulse Oximetry 92 05/23/17 09:52 Temperature 98.1 F 05/23/17 09:52 Pulse Rate 101 05/23/17 13:39 Respiratory Rate 18 05/23/17 13:39 Blood Pressure 126/81 05/23/17 13:39 O2 Sat by Pulse Oximetry 96 05/23/17 13:39 Oxygen Delivery Oxygen Delivery Room Air Medical Decision Making - MDM Narrative Medical decision making narrative: 61-year-old male presents to the ED complaining of bilateral leg pain. He states that this is been going on since he left the hospital approximately 2 days ago. Patient was recently admitted for anemia and possible myelodysplastic syndrome. He recently had a bone biopsy done approximately 3 days ago. They are unable to aspirate from that. They are still waiting for the results. He is set to see his primary care physician in 3 days. We did give him morphine, Percocet for pain control this did not help with his pain so this time we cannot control the pain so we gave him 1 mg of Dilaudid and recommended admission for further evaluation and pain control. We did do basic labs and everything was stable based on his labs done approximately 2 days ago. He did have low platelet count but was the same as it was before. He did have a hemoglobin of 7.1 which again is the same as when he was discharged. At this time there is no needed treatment based on his laboratories. This admission based off pain control. Patient family are okay with this plan. Patient was admitted to the hospitalist service to Dr. Jeronimo agreed to accept the patient to their service. Patient admitted in stable condition. - Medical Records Medical records reviewed: Yes I reviewed the patient's medical records. - Lab Data Lab results reviewed: Yes I reviewed the patient's lab results. Result diagrams: 05/23/17 10:10 05/23/17 10:10 Lab Results 05/23/17 05/23/17 05/23/17 Range/Units 10:10 10:10 10:10 WBC 3.0 L (4.3-11.1) K/mcL RBC 2.30 L (4.19-5.50) M/mcL Hgb 7.1 L (12.9-16.9) g/dL Hct 20.5 L (37.5-50.1) % MCV 89.1 (83.0-100.0) fL MCH 30.9 (28.0-33.3) pg MCHC 34.6 (31.6-35.5) g/dL RDW 16.2 H (11.5-14.5) % Plt Count 27 L* (140-400) K/mcL MPV TNP Seg Neutrophils % 83.0 % Band Neutrophils % 1.0 (0-4) % Lymphocytes % 15.0 % Monocytes % 1.0 % Neutrophils # 2.5 (1.6-8.9) K/mcL Lymphocytes # 0.5 L (0.6-4.6) K/mcL Monocytes # 0.0 (0.0-1.3) K/mcL Reactive Lymphocytes Present A (Not Present) Toxic Granulation Present A (Not Present) Platelet Estimate Marked Decrease L (Normal) Anisocytosis 1+ A (Not Present) Ovalocytes 1+ A (Not Present) Sodium 139 (136-145) mEq/L Potassium 4.2 (3.5-4.5) mEq/L Chloride 110 H (98-109) mEq/L Carbon Dioxide 20 (19-29) mEq/L BUN 16 (8-26) mg/dL Creatinine 0.81 (0.72-1.25) mg/dL Est GFR ( Amer) > 60 (> 60) Est GFR (Non-Af Amer) > 60 (> 60) BUN/Creatinine Ratio 20 (6-26) Glucose 109 H (70-99) mg/dL Calculated Osmolality 290 (280-300) Calcium 8.5 L (8.6-10.8) mg/dL Phosphorus 3.1 (2.3-4.7) mg/dL Magnesium 2.0 (1.6-2.6) mg/dL Total Bilirubin 1.3 H (0.2-1.2) mg/dL AST 10 (5-34) Units/L ALT 13 (0-55) Units/L Alkaline Phosphatase 44 (38-126) Units/L Creatine Kinase 19 L (30-200) Units/L Serum Total Protein 6.4 (6.0-8.3) g/dL Albumin 3.0 L (3.5-5.0) g/dL Globulin 3.4 (2.4-3.5) g/dL Albumin/Globulin Ratio 0.9 L (1.1-2.2) Blood Type O POSITIVE Antibody Screen NEGATIVE Attestation Statement - Attestation Attestation: I examined this patient and my medical decision-making was reviewed with the Resident Physician. I agree with the documented findings, disposition and treatment plan as described except to the extent set forth below. 61-year-old male presents ED because for lower extremity pain. He was recently admitted for anemia and thought to have myelodysplastic disorder. Results of the bone marrow biopsy are still pending. He received 3 units of blood while in the hospital and discharged home with a hemoglobin of 7.2. Platelets are also low. He is due for oncology follow-up tomorrow. Through the evening and tonight he developed increasing pain in both lower extremities impairing his ability to ambulate Denies fevers or chills. No worsening dyspnea. No abdominal pain. No vomiting or diarrhea. Patient has been comfortable. No apparent physiologic distress. Oropharynx clear mucous membranes slightly dry. Neck is supple. Chest clear to auscultation bilaterally. Abdomen soft non-distended and non-tender. Extremities warm and dry. Dorsal pedal pulses are present bilaterally. Capillary refill is less than 2 seconds in his feet. No focal muscle tenderness. No rash. He will remain stable 7.1. Platelets were still 27,000 He received IV and oral analgesics without adequate control his pain and will be admitted for pain control.
[2017-05-23 10:19] LABS: Hematocrit 20.5 % (37.5-50.1); Mean Corpuscular HGB Conc 34.6 g/dL (31.6-35.5); Mean Corpuscular Hemoglobin 30.9 pg (28.0-33.3); Mean Corpuscular Volume 89.1 fL (83.0-100.0); Red Cell Distribution Width 16.2 % (11.5-14.5)
[2017-05-23 10:20] LABS: Hemoglobin 7.1 g/dL (12.9-16.9)
[2017-05-23 10:27] LABS: Platelet Count 27 K/mcL (140-400)
[2017-05-23 10:34] LABS: Alanine Aminotransferase 13 Units/L (0-55); Albumin/Globulin Ratio 0.9 (1.1-2.2); Alkaline Phosphatase 44 Units/L (38-126); Aspartate Amino Transferase 10 Units/L (5-34); BUN/Creatinine Ratio 20 (6-26); Bilirubin,Total 1.3 mg/dL (0.2-1.2); Blood Urea Nitrogen 16 mg/dL (8-26); Calcium 8.5 mg/dL (8.6-10.8); Carbon Dioxide 20 mEq/L (19-29); Chloride 110 mEq/L (98-109); Creatine Kinase 19 Units/L (30-200); Globulin 3.4 g/dL (2.4-3.5); Glucose 109 mg/dL (70-99); Osmolality,Calculated 290 (280-300); Phosphorous 3.1 mg/dL (2.3-4.7); Potassium 4.2 mEq/L (3.5-4.5); Sodium 139 mEq/L (136-145); Total Protein 6.4 g/dL (6.0-8.3); eGFR For African Americans > 60 (> 60); eGFR For Non-African Americans > 60 (> 60)
[2017-05-23 10:51] LABS: Lymphocytes # 0.5 K/mcL (0.6-4.6); Neutrophils # 2.5 K/mcL (1.6-8.9); Reactive Lymphocytes Present (Not Present); Toxic Granulation Present (Not Present)
[2017-05-23 10:52] LABS: Anisocytosis 1+ (Not Present); Ovalocytes 1+ (Not Present); Platelet Estimate Marked Decrease (Normal)
[2017-05-23] MEDS ORDERED: *HR* OxyCODONE/APAP 10/325 TABLET PO ONE (11:47)
[2017-05-23] MEDS ORDERED: *HR* HYDROmorphone (PF) 1 MG/ML SYRINGE IVP ONE (13:09)
[2017-05-23] MEDS ORDERED: Naloxone 0.4 MG/ML INJ IVP PRN (15:19)
[2017-05-23] MEDS ORDERED: *HR* Morphine 2 MG/ML SYRINGE IVP PRN ×2 (15:26→16:35)
[2017-05-23] MEDS ORDERED: 0.9 % Sodium Chloride 1,000 ML IVC SCH (15:30)
--- NOTE | 2017-05-23 16:40 | Internal Med History&Physical ---
<Julianna Oro - Last Filed: 05/23/17 18:52> Date of Encounter: 05/23/17 Time of Encounter: 16:36 Assessment and Plan (1) Intractable pain Current visit: Yes Status: Acute 1 patient has been experiencing bilateral lower extremity weakness pain and cramping from his waist down. This is been going on for past 2 weeks however has escalated over the past few days. There is suspicion for malignancy- Possible ac leukemia/MDS. He underwent a bone marrow aspiration on Wednesday. Awaiting results. We will give percocet and IV medications as needed. We will also add gabapentin (2) Pancytopenia Current visit: No Status: Acute Presently he is stable we will continue to monitor CBC-transfuse if hemoglobin drops less than 7, or platelets less than 20 (3) Suspected malignant neoplasm Current visit: No Status: Acute Patient has pancytopenia-underwent bone marrow biopsy on Wednesday-suspicious for malignancy-Possible ac leukemia/MDS-he is being followed by oncology and he will follow-up once receives results of biopsy (4) Tobacco abuse Current visit: No Status: Acute Encouraged patient to stop smoking (5) DVT prophylaxis Current visit: No Status: Acute 1 patient's platelets and hemoglobin are low no anticoagulation. He is experiencing lower extremity pain we will tolerate SCDs we will attempt to place LESLIE magaña Internal Medicine - H&P: HPI Chief complaint: Pain in lower extremities Admitted From: Emergency Dept Plans for Post Hospital Care: Home History of present illness: Mr. Lopez is a 61 year old male past medical history of depression and anxiety current smoker. The past 2 weeks patient has been experiencing significant and progressive lower extremity muscle cramps weakness headaches and shortness of breath. Last week He presented to his PCP due to the fact he was unable to complete his ADLs due to his symptoms. PCP sent him to have lab work completed and there was significant pancytopenia. He was sent to the ER at [place] and was eventually transferred to [facility]. He was seen by oncology, patient was transfused with platelets and bone marrow biopsy was completed. He was discharged home on Wednesday. He continued to experience pain and cramping in his lower extremities throughout the day and night without any relief to the point that he was unable to ambulate. He presented back to the emergency room. Lab work was obtained and are stable at this time . ER physician did speak with hematology/oncology Dr Bianchi. According to ER note Hem/ onc expressed that there was nothing to be done on their side and have the patient follow up with her office once the bone marrow biopsy comes back. However the patient would need to be admitted for pain management. Presently the patient appears to be resting comfortably and he is hemodynamically stable at this time. Past Med Surg Social Fam HX - Past Medical History Medical history: no medical history Psychiatric history: anxiety, depression - Past Surgical History Surgical History: orthopedic, other - Social History Smoking Status: Current every day smoker Smokeless Tobacco Status: No Alcohol use: none Drug use: none - Family History Grandmother Living Status: Hx Family Cancer: Yes (Colon) Internal Medicine - H&P: Meds Alprazolam [Xanax] 2 mg PO TID 05/18/17 [History] Citalopram Hydrobromide [Citalopram HBr] 40 mg PO DAILY 05/18/17 [History] 3 Allergy/AdvReac Type Severity Reaction Status Date / Time No Known Allergies Allergy Verified 05/18/17 15:37 All Systems PM: A 10-system review of systems was performed and is negative for pertinent findings except as documented above in the HPI. - Constitutional Constitutional: fatigue, weakness, no chills, no fever(s), no night sweats - EENT Eyes: no change in vision, no discharge, no pain, no photophobia Ears: no ear discharge, no ear pain, no tinnitus Nose, mouth and throat: no dysphagia, no nasal discharge, no neck pain, no sore throat - Cardiovascular Cardiovascular ROS IM: dyspnea, no chest pain, no diaphoresis, no lightheadedness, no palpitations, no syncope - Respiratory Respiratory: no cough, no dyspnea, no wheezing, no excessive phlegm production - Gastrointestinal Gastrointestinal: no abdominal pain, no diarrhea, no hematemesis, no hematochezia, no melena, no nausea, no vomiting - Musculoskeletal Musculoskeletal ROS IM: muscle cramps, muscle weakness, no numbness, no tingling - Integumentary Integumentary IM: no rash, no unusual bruising - Neurological Neurological ROS: no confusion, no convulsions, no focal weakness, no numbness, no tingling, no tremor(s) - Hematologic/Lymphatic Hematologic/Lymphatic: no easy bruising - Constitutional Vitals: Temp Pulse Resp BP Pulse Ox 98.3 F 88 17 126/81 96 05/23/17 14:39 05/23/17 14:39 05/23/17 14:39 05/23/17 14:39 05/23/17 14:39 General appearance: Present: A&O X 3 - Head Head exam: Present: atraumatic, normocephalic - Eye Eye exam: Present: PERRL, conjuntiva pink, sclera anicteric Pupils: Present: PERRL - Neck Neck exam general surgery: Present: supple, trachea midline. Absent: lymphadenopathy - Respiratory Respiratory exam: Present: CTAB. Absent: accessory muscle use, rales, rhonchi, wheezes - Cardiovascular Cardiovascular exam: Present: RRR, +S1, +S2. Absent: diastolic murmur, gallop, rubs, systolic murmur - GI/Abdominal GI/Abdominal exam: Present: normal bowel sounds, soft, no peritoneal signs. Absent: distended, tenderness - Extremities Exam Extremities exam: Present: warm, radial pulses palpable and symmetrical. Absent : calf tenderness, cyanotic, pedal edema - Neurological Exam Neurological exam: Present: CN II-XII intact, oriented X3, no focal deficits. Absent: pronater drift, facial droop, speech deficit - Skin Skin exam: Present: dry, intact Internal Med - H&P Results - Labs CBC & Chem 7: 05/23/17 10:10 05/23/17 10:10 <Cesar Jeronimo P - Last Filed: 05/24/17 10:19> Date of Encounter: 05/24/17 Internal Medicine - H&P: HPI History of present illness: Mr. Lopez is a 61 year old male All Systems PM: A 10-system review of systems was performed and is negative for pertinent findings except as documented above in the HPI. - Constitutional Vitals: Temp Pulse Resp BP Pulse Ox 98.2 F 85 18 114/71 97 05/24/17 09:44 05/24/17 09:44 05/24/17 09:44 05/24/17 09:44 05/24/17 06:49 Internal Med - H&P Results - Labs CBC & Chem 7: 05/24/17 04:40 05/24/17 04:40 Labs: Short CBC 05/24/17 Range/Units 04:40 WBC 2.1 L (4.3-11.1) K/mcL Hgb 6.1 L (12.9-16.9) g/dL Hct 17.7 L (37.5-50.1) % Plt Count 19 L* (140-400) K/mcL Neutrophils # 1.1 L (1.6-8.9) K/mcL BMP 05/24/17 04:40 Sodium 136 Potassium 4.0 Chloride 110 H Carbon Dioxide 21 BUN 16 Creatinine 0.78 Glucose 104 H Calcium 7.9 L - Attending Attestation I examined this patient and my medical decision-making was reviewed with the Resident Physician/HEEL SCOURER. I agree with the documented findings, disposition and treatment plan as described except to the extent set forth below. Patient seen and examined. Chart reviewed. I agree with the assessment and plan of HEEL SCOURER Ms Nelsona
[2017-05-23] MEDS: *HR* HYDROcodone/Acet 5/325 mg TABLET PO PRN (19:39)
[2017-05-24] MEDS: *HR* HYDROcodone/Acet 5/325 mg TABLET PO PRN ×5 (04:58→21:17)
[2017-05-24 05:16] LABS: Hemoglobin 6.1 g/dL (12.9-16.9); Red Cell Distribution Width 15.9 % (11.5-14.5)
[2017-05-24 05:18] LABS: Hematocrit 17.7 % (37.5-50.1); Immature Granulocytes % 4.7 % (0-4); Immature Platelets 5.9 % (1.1-6.1); Lymphocytes # 0.7 K/mcL (0.6-4.6); Lymphocytes % 34.3 %; Mean Corpuscular HGB Conc 34.5 g/dL (31.6-35.5); Mean Corpuscular Hemoglobin 30.7 pg (28.0-33.3); Mean Corpuscular Volume 88.9 fL (83.0-100.0); Monocytes # 0.1 K/mcL (0.0-1.3); Monocytes % 6.6 %; Neutrophils # 1.1 K/mcL (1.6-8.9); Red Blood Count 1.99 M/mcL (4.19-5.50); Segmented Neutrophils % 54.4 %
[2017-05-24 05:26] LABS: Platelet Count 19 K/mcL (140-400)
[2017-05-24 05:32] LABS: BUN/Creatinine Ratio 21 (6-26); Blood Urea Nitrogen 16 mg/dL (8-26); Calcium 7.9 mg/dL (8.6-10.8); Carbon Dioxide 21 mEq/L (19-29); Chloride 110 mEq/L (98-109); Glucose 104 mg/dL (70-99); Osmolality,Calculated 283 (280-300); Sodium 136 mEq/L (136-145); eGFR For African Americans > 60 (> 60); eGFR For Non-African Americans > 60 (> 60)
[2017-05-24] MEDS ORDERED: 0.9 % Sodium Chloride 250 ML ONE ×2 (06:15→10:52)
[2017-05-24] MEDS: Gabapentin 100 MG CAPSULE PO SCH ×3 (08:02→21:13)
[2017-05-24] MEDS: *HR* Morphine 2 MG/ML SYRINGE IVP PRN ×3 (10:04→22:56)
--- NOTE | 2017-05-24 10:22 | Internal Med Progress Note ---
Date of Encounter: 05/24/17 Time of Encounter: 10:20 - Assessment and plan (1) Intractable pain Current Visit: Yes Status: Acute Assessment and plan: Patient was admitted for persistent intractable pain. Patient is presently on IV morphine 2 mg every 4 hour. Patient is also on Narco tablet every 4 hours. We are going to alternate his medication to keep patient pain free. The plan discussed with the patient and his . The verbalize understanding. We will monitor the pain very closely. (2) Pancytopenia Current Visit: No Status: Acute Assessment and plan: Patient has a pancytopenia. Recently underwent bone biopsy. Bone biopsy results are still pending. Presently his hemoglobin is less than 7: We will transfuse red blood cell. Patient's platelet count is less than 30: We will transfuse platelets. (3) Suspected malignant neoplasm Current Visit: No Status: Acute Assessment and plan: Patient is likely suspected malignant neoplasm. Bone biopsy was done. Awaiting further results. (4) Tobacco abuse Current Visit: No Status: Acute Assessment and plan: encourage patient to stop smoking. (5) DVT prophylaxis Current Visit: No Status: Acute Assessment and plan: SCD - Subjective Interval history: Patient seen and examined. Chart reviewed. Patient is comfortably lying in the bed. Patient's is at bedside. Patient denies chest pain, shortness of breath, nausea, abdominal pain, dizziness and diarrhea. Patient still complains that he has a persistent pain in his lower extremity. - Constitutional Vitals: Temp Pulse Resp BP Pulse Ox 98.2 F 85 18 114/71 97 05/24/17 09:44 05/24/17 09:44 05/24/17 09:44 05/24/17 09:44 05/24/17 06:49 General appearance: Present: A&O X 3 - Head Head exam: Present: atraumatic, normocephalic - Eye Eye exam: Present: PERRL, conjuntiva pink, sclera anicteric Pupils: Present: PERRL - Neck Neck exam general surgery: Present: supple, trachea midline. Absent: lymphadenopathy - Respiratory Respiratory exam: Present: CTAB. Absent: accessory muscle use, rales, rhonchi, wheezes - Cardiovascular Cardiovascular exam: Present: RRR, +S1, +S2. Absent: diastolic murmur, gallop, rubs, systolic murmur - GI/Abdominal GI/Abdominal exam: Present: normal bowel sounds, soft, no peritoneal signs. Absent: distended, tenderness - Extremities Exam Extremities exam: Present: warm, radial pulses palpable and symmetrical. Absent : calf tenderness, cyanotic, pedal edema - Neurological Exam Neurological exam: Present: CN II-XII intact, oriented X3, no focal deficits. Absent: pronater drift, facial droop, speech deficit - Skin Skin exam: Present: dry, intact Internal Medicine: Result - Labs CBC & Chem 7: 05/24/17 04:40 05/24/17 04:40 Labs: Short CBC 05/24/17 Range/Units 04:40 WBC 2.1 L (4.3-11.1) K/mcL Hgb 6.1 L (12.9-16.9) g/dL Hct 17.7 L (37.5-50.1) % Plt Count 19 L* (140-400) K/mcL Neutrophils # 1.1 L (1.6-8.9) K/mcL BMP 05/24/17 04:40 Sodium 136 Potassium 4.0 Chloride 110 H Carbon Dioxide 21 BUN 16 Creatinine 0.78 Glucose 104 H Calcium 7.9 L - VTE Documentation of Mechanical Device: Graduated compression elastic hosiery Consult Discharge Plan - Plan Referrals: Getachew Fraser MD [Primary Care Provider] -
[2017-05-24] MEDS ORDERED: *HR* HYDROcodone/Acet 5/325 mg TABLET PO SCH (12:00)
--- NOTE | 2017-05-24 14:14 | Oncology Inp Progress Note ---
Date of Encounter: 05/24/17 Time of Encounter: 13:40 (1) Pancytopenia Current Visit: No Status: Acute Assessment and plan: Awaiting Bone marrow results. Receiving packed cells. Transfuse RPC and PLT as needed. Oncology: Subj Interval history: On 05/21/17 had bone marrow study for pancytopenia. Awating results. Was doscharged on 05/21/27, readmitted with severe bilateral leg pain on 2016. At that time HBG 7.1and PLT 27,000. 05/24/17- WBC- 2.1, HGB 6.1 and 19,000. He is currently receiving Packed cells. Continues to have bilateral leg pain "meds help some". Denies active bleeding. - Constitutional Vitals: Vital Signs Temp Pulse Resp BP Pulse Ox 05/24/17 11:16 99.1 F 86 15 105/57 97 05/24/17 10:56 98.8 F 84 16 115/55 96 05/24/17 10:47 98.1 F 83 18 111/67 94 05/24/17 09:44 98.2 F 85 18 114/71 05/24/17 06:49 98.5 F 76 15 106/69 97 05/24/17 06:34 97.7 F 84 15 109/67 96 05/24/17 04:43 98.0 F 80 18 108/66 98 05/24/17 00:43 98.9 F 86 18 107/61 96 05/23/17 19:32 98.6 F 89 18 116/73 99 Intake and Output 05/23/17 05/24/17 05/24/17 23:59 07:59 15:59 Intake Total 800 / 800 534 / 534 Output Total 900 / 900 1300 / 1300 425 / 425 Balance -900 / -900 -500 / -500 109 / 109 Intake: Oral 800 / 800 240 / 240 Blood Product 0 / 0 294 / 294 Platelet Pheresis Lp Irr 2nd 0 / 0 294 / 294 Unit [id number] Rbcs Leuko Poor As-1 Unit 0 / 0 [id number] Output: Urine 900 / 900 1300 / 1300 425 / 425 Other: Meal Breakfast Percent of Meal Consumed 100% General appearance: cooperative, no acute distress - Head Head exam: Present: normocephalic - ENT ENT exam: Present: mucous membranes moist - Neck Neck exam: Present: normal inspection - Respiratory Respiratory exam: Present: CTAB - Cardiovascular Cardiovascular exam: Present: RRR - GI/Abdominal GI/Abdominal exam: Present: normal bowel sounds, soft. Absent: distended, firm , guarding, mass, organomegaly, pulsatile mass, rebound, tenderness - Extremities Exam Extremities exam: Present: normal capillary refill. Absent: calf tenderness, full ROM, joint swelling, normal inspection, pedal edema, tenderness - Back Exam Back exam: Present: normal inspection. Absent: CVA tenderness (R), paraspinal tenderness, tenderness, vertebral tenderness - Neurological Exam Neurological exam: Present: alert, oriented X3. Absent: altered, facial droop, speech deficit - Psychiatric Psychiatric exam: Present: normal affect, normal mood Oncology: Obj Data - Labs CBC & Chem 7: 05/24/17 04:40 05/24/17 04:40 Labs: Laboratory Results - last 24 hr 05/24/17 05/24/17 04:40 04:40 WBC 2.1 L RBC 1.99 L Hgb 6.1 L Hct 17.7 L MCV 88.9 MCH 30.7 MCHC 34.5 RDW 15.9 H Plt Count 19 L* MPV TNP Immature Gran % 4.7 H Seg Neutrophils % 54.4 Lymphocytes % 34.3 Monocytes % 6.6 Eosinophils % 0.0 Basophils % 0.0 Neutrophils # 1.1 L Lymphocytes # 0.7 Monocytes # 0.1 Eosinophils # 0.0 Basophils # 0.0 Immature Plt Fraction 5.9 Sodium 136 Potassium 4.0 Chloride 110 H Carbon Dioxide 21 BUN 16 Creatinine 0.78 Est GFR ( Amer) > 60 Est GFR (Non-Af Amer) > 60 BUN/Creatinine Ratio 21 Glucose 104 H Calculated Osmolality 283 Calcium 7.9 L Consult Discharge Plan - Plan Referrals: Getachew Fraser MD [Primary Care Provider] -
[2017-05-24] MEDS: ALPRAZolam 1 MG TABLET PO SCH ×2 (14:49→21:13)
[2017-05-24] MEDS ORDERED: *HR* Morphine 2 MG/ML SYRINGE IVP ONE (17:17)
[2017-05-25] MEDS: *HR* HYDROcodone/Acet 5/325 mg TABLET PO PRN (01:18)
[2017-05-25] MEDS: Gabapentin 100 MG CAPSULE PO SCH ×3 (08:20→20:42)
[2017-05-25] MEDS: ALPRAZolam 1 MG TABLET PO SCH ×3 (08:20→20:42)
[2017-05-25] MEDS: *HR* Morphine 2 MG/ML SYRINGE IVP PRN ×2 (12:14→18:05)
[2017-05-25 13:14] LABS: Hematocrit 21.5 % (37.5-50.1); Hemoglobin 7.6 g/dL (12.9-16.9); Immature Granulocytes % 7.3 % (0-4); Immature Platelets 5.5 % (1.1-6.1); Lymphocytes # 0.5 K/mcL (0.6-4.6); Mean Corpuscular HGB Conc 35.3 g/dL (31.6-35.5); Monocytes # 0.2 K/mcL (0.0-1.3); Monocytes % 12.7 %; Neutrophils # 0.7 K/mcL (1.6-8.9); Nucleated Red Blood Cells 1.3 /100 WBC (0); Red Blood Count 2.53 M/mcL (4.19-5.50); Red Cell Distribution Width 15.8 % (11.5-14.5)
[2017-05-25 13:17] LABS: BUN/Creatinine Ratio 16 (6-26); Blood Urea Nitrogen 12 mg/dL (8-26); Calcium 8.1 mg/dL (8.6-10.8); Carbon Dioxide 24 mEq/L (19-29); Chloride 108 mEq/L (98-109); Glucose 101 mg/dL (70-99); Magnesium 1.8 mg/dL (1.6-2.6); Osmolality,Calculated 286 (280-300); Potassium 4.1 mEq/L (3.5-4.5); Sodium 138 mEq/L (136-145); eGFR For African Americans > 60 (> 60); eGFR For Non-African Americans > 60 (> 60)
[2017-05-25 13:23] LABS: Platelet Count 16 K/mcL (140-400)
[2017-05-25 13:36] LABS: Platelet Estimate Decreased (Normal)
[2017-05-25] MEDS ORDERED: 0.9 % Sodium Chloride 250 ML ONE ×3 (14:08→21:46)
--- NOTE | 2017-05-25 14:12 | Oncology Inp Progress Note ---
Date of Encounter: 05/25/17 Time of Encounter: 12:00 (1) Pancytopenia Current Visit: No Status: Chronic Assessment and plan: Myelodysplastic syndrome, with excess blasts, refractory anemia excess blasts type I with fibrosis, bone marrow showing fibrotic changes as well, patient is pancytopenic. Chromosome analysis not obtained as aspirate was unobtainable-- send peripheral blood sample. Reviewed MRI findings. PAin lower ext needs pain medications. Treatment for MDS RAEB-1 discussed briefly bed side. He will need PRBC, plt transfusion Hgb/Plt results from today noted. Plan to d/c him for f/u with Rx and labs wkly in clinic. Oncology: Subj Interval history: c/o leg cramp, lower ext, fatigue - Constitutional Vitals: Vital Signs Temp Pulse Resp BP Pulse Ox 05/25/17 11:33 98.1 F 84 17 131/73 93 05/25/17 07:10 98.3 F 80 17 107/64 93 05/25/17 03:32 98.5 F 92 18 128/80 95 05/25/17 00:01 99.8 F H 96 24 150/88 94 05/24/17 21:24 99.1 F 97 20 148/92 94 05/24/17 15:19 97.7 F 81 20 123/71 95 05/24/17 14:35 98.5 F 81 16 130/82 97 Intake and Output 05/24/17 05/25/17 05/25/17 23:59 07:59 15:59 Intake Total 240 / 240 518 / 518 Output Total 0 / 0 250 / 250 Balance 240 / 240 268 / 268 Intake: Oral 240 / 240 518 / 518 Output: Urine 0 / 0 250 / 250 Other: Meal Dinner Breakfast Percent of Meal Consumed 45% 75% # Voids 1 1 Weight 65.56 kg Patient Weight 05/25/17 23:59 Weight 65.56 kg General appearance: average body habitus - Head Head exam: Present: atraumatic, normal inspection - Eye Eye exam: Present: sclera anicteric - ENT ENT exam: Present: mucous membranes moist - Neck Neck exam: Present: full ROM - Respiratory Respiratory exam: Present: CTAB - Cardiovascular Cardiovascular exam: Present: +S1, +S2 - GI/Abdominal GI/Abdominal exam: Present: normal bowel sounds, soft - Extremities Exam Extremities exam: Present: normal inspection - Neurological Exam Neurological exam: Present: alert, CN II-XII intact, oriented X3 - Psychiatric Psychiatric exam: Present: normal affect Oncology: Obj Data - Labs CBC & Chem 7: 05/25/17 12:49 05/25/17 12:49 Labs: Laboratory Results - last 24 hr 05/25/17 05/25/17 12:49 12:49 WBC 1.5 L RBC 2.53 L Hgb 7.6 L D Hct 21.5 L MCV 85.0 MCH 30.0 MCHC 35.3 RDW 15.8 H Plt Count 16 L* Immature Gran % 7.3 H Seg Neutrophils % 44.0 Lymphocytes % 36.0 Monocytes % 12.7 Eosinophils % 0.0 Basophils % 0.0 Neutrophils # 0.7 L Lymphocytes # 0.5 L Monocytes # 0.2 Eosinophils # 0.0 Basophils # 0.0 Nucleated RBCs/100 WBC 1.3 H Platelet Estimate Decreased L Immature Plt Fraction 5.5 Sodium 138 Potassium 4.1 Chloride 108 Carbon Dioxide 24 BUN 12 Creatinine 0.73 Est GFR ( Amer) > 60 Est GFR (Non-Af Amer) > 60 BUN/Creatinine Ratio 16 Glucose 101 H Calculated Osmolality 286 Calcium 8.1 L Magnesium 1.8 - Impressions Impressions Lumbar Spine CT 05/24/17 19:30 IMPRESSION: 1. No acute osseous abnormality of the lumbar spine. 2. Multiple sclerotic osseous lesions concerning metastatic disease. 3. Multilevel degenerative changes greatest along the concave aspect of the patient's mild S-shaped lumbar scoliosis. 4. Small layering bilateral pleural effusions. D/ / Sergo Dove MD / Sergo Dove MD Interpreting Provider: Sergo Dove MD Thoracic Spine CT 05/24/17 19:30 IMPRESSION: 1. No acute osseous abnormality of the thoracic spine. 2. Sclerotic lesions in the T10 and T12 vertebral bodies suspicious for metastatic disease. 3. Small layering bilateral pleural effusions. D/ / Sergo Dove MD / Sergo Dove MD Interpreting Provider: Sergo Dove MD Consult Discharge Plan - Plan Referrals: Getachew Fraser MD [Primary Care Provider] -
[2017-05-25] MEDS ORDERED: *HR* LORazepam 0.5 MG TABLET PO PRN (14:49)
[2017-05-25] MEDS ORDERED: *HR* Morphine 2 MG/ML SYRINGE IVP ONE (14:52)
--- NOTE | 2017-05-25 14:59 | Internal Med Progress Note ---
Date of Encounter: 05/25/17 Time of Encounter: 14:58 - Assessment and plan (1) MDS (myelodysplastic syndrome) Current Visit: Yes Status: Acute Assessment and plan: His Pancytopenia with severe thrombocytopenia and anemia are due to MDS Cont close monitoring of his blood count transfuse as needed basis Heme Onc on board (2) Pancytopenia Current Visit: No Status: Chronic Assessment and plan: reviewed labs.. 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 Patient is presently on IV morphine 2 mg every 4 hour. Patient is also on Narco tablet every 4 hours. Still in severe pain / cramps - mostly due to MDS will inc Morphine to 4mg, and added Flexeril (6) Tobacco abuse Current Visit: No Status: Acute Assessment and plan: encourage patient to stop smoking. (7) Anxiety Current Visit: No Status: Acute (8) DVT prophylaxis Current Visit: No Status: Acute Assessment and plan: SCD - Subjective Interval history: Mr. Lopez is a 61 year old male past medical history of depression and anxiety current smoker. The past 2 weeks patient has been experiencing significant and progressive lower extremity muscle cramps weakness headaches and shortness of breath. Last week He presented to his PCP due to the fact he was unable to complete his ADLs due to his symptoms. PCP sent him to have lab work completed and there was significant pancytopenia. He was sent to the ER at [place] and was eventually transferred to [facility]. He was seen by oncology, patient was transfused with platelets and bone marrow biopsy was completed. He was discharged home on Wednesday. He continued to experience pain and cramping in his lower extremities throughout the day and night without any relief to the point that he was unable to ambulate. He presented back to the emergency room. He got admitted with severe pancytopenia. his platelets and Hb still kept on dropping. His Bone marrow biopsy results came back as MDS as per Heme Onc.He is getting PRBC and Platelet transfusions now. denied any CP / SOB. Still has severe muscle cramps and weakness. - Constitutional Vitals: Temp Pulse Resp BP Pulse Ox 99.0 F 90 18 132/84 96 05/25/17 14:55 05/25/17 14:55 05/25/17 14:55 05/25/17 14:55 05/25/17 14:55 General appearance: Present: mild distress (with pain), A&O X 3 - Head Head exam: Present: atraumatic, normal inspection - Neck Neck exam general surgery: Present: supple - Respiratory Respiratory exam: Present: decreased breath sounds. Absent: rales, respiratory distress, rhonchi, wheezes - Cardiovascular Cardiovascular exam: Present: RRR, +S1, +S2. Absent: systolic murmur - GI/Abdominal GI/Abdominal exam: Present: normal bowel sounds, soft. Absent: rebound, rigid, tenderness - Extremities Exam Extremities exam: Absent: calf tenderness, pedal edema, tenderness - Back Exam Back exam: Absent: CVA tenderness (L), CVA tenderness (R) - Neurological Exam Neurological exam: Present: alert, oriented X3 - Psychiatric Psychiatric exam: Present: anxious, depressed Internal Medicine: Result - Labs CBC & Chem 7: 05/25/17 12:49 05/25/17 12:49 Labs: Short CBC 05/25/17 Range/Units 12:49 WBC 1.5 L (4.3-11.1) K/mcL Hgb 7.6 L D (12.9-16.9) g/dL Hct 21.5 L (37.5-50.1) % Plt Count 16 L* (140-400) K/mcL Neutrophils # 0.7 L (1.6-8.9) K/mcL BMP 05/25/17 12:49 Sodium 138 Potassium 4.1 Chloride 108 Carbon Dioxide 24 BUN 12 Creatinine 0.73 Glucose 101 H Calcium 8.1 L - Impressions Impressions Lumbar Spine CT 05/24/17 19:30 IMPRESSION: 1. No acute osseous abnormality of the lumbar spine. 2. Multiple sclerotic osseous lesions concerning metastatic disease. 3. Multilevel degenerative changes greatest along the concave aspect of the patient's mild S-shaped lumbar scoliosis. 4. Small layering bilateral pleural effusions. D/ / Sergo Dove MD / Sergo Dove MD Interpreting Provider: Sergo Dove MD Thoracic Spine CT 05/24/17 19:30 IMPRESSION: 1. No acute osseous abnormality of the thoracic spine. 2. Sclerotic lesions in the T10 and T12 vertebral bodies suspicious for metastatic disease. 3. Small layering bilateral pleural effusions. D/ / Sergo Dove MD / Sergo Dove MD Interpreting Provider: Sergo Dove MD - VTE Documentation of Mechanical Device: Graduated compression elastic hosiery Consult Discharge Plan - Plan Referrals: Getachew Fraser MD [Primary Care Provider] -
[2017-05-25] MEDS ORDERED: Acetaminophen 325 MG TABLET PO ONE (18:03)
[2017-05-26] MEDS: *HR* HYDROcodone/Acet 5/325 mg TABLET PO PRN ×3 (00:56→13:07)
[2017-05-26] MEDS: *HR* Morphine 2 MG/ML SYRINGE IVP PRN ×3 (05:12→17:33)
[2017-05-26 05:52] LABS: Red Cell Distribution Width 15.3 % (11.5-14.5)
[2017-05-26 05:54] LABS: Hematocrit 29.4 % (37.5-50.1); Hemoglobin 10.2 g/dL (12.9-16.9); Immature Granulocytes % 6.7 % (0-4); Lymphocytes # 0.7 K/mcL (0.6-4.6); Mean Corpuscular HGB Conc 34.7 g/dL (31.6-35.5); Mean Corpuscular Hemoglobin 29.7 pg (28.0-33.3); Mean Corpuscular Volume 85.7 fL (83.0-100.0); Monocytes # 0.2 K/mcL (0.0-1.3); Monocytes % 14.1 %; Neutrophils # 0.5 K/mcL (1.6-8.9); Red Blood Count 3.43 M/mcL (4.19-5.50); Segmented Neutrophils % 36.2 %
[2017-05-26 05:57] LABS: Platelet Count 19 K/mcL (140-400)
[2017-05-26 06:07] LABS: BUN/Creatinine Ratio 14 (6-26); Blood Urea Nitrogen 11 mg/dL (8-26); Carbon Dioxide 21 mEq/L (19-29); Chloride 108 mEq/L (98-109); Potassium 4.1 mEq/L (3.5-4.5); Sodium 138 mEq/L (136-145)
[2017-05-26 06:08] LABS: Calcium 8.3 mg/dL (8.6-10.8); Glucose 97 mg/dL (70-99); Magnesium 1.9 mg/dL (1.6-2.6); Osmolality,Calculated 285 (280-300); eGFR For African Americans > 60 (> 60); eGFR For Non-African Americans > 60 (> 60)
[2017-05-26 06:31] LABS: Platelet Estimate Marked Decrease (Normal)
[2017-05-26] MEDS: Gabapentin 100 MG CAPSULE PO SCH ×3 (07:35→21:05)
[2017-05-26] MEDS: ALPRAZolam 1 MG TABLET PO SCH ×3 (07:35→21:05)
[2017-05-26] MEDS ORDERED: 0.9 % Sodium Chloride 250 ML ONE ×2 (12:58→18:15)
--- NOTE | 2017-05-26 16:58 | Internal Med Progress Note ---
Date of Encounter: 05/26/17 Time of Encounter: 12:20 - Assessment and plan (1) MDS (myelodysplastic syndrome) Current Visit: Yes Status: Acute Assessment and plan: His Pancytopenia with severe thrombocytopenia and anemia are due to MDS Cont close monitoring of his blood count transfuse as needed basis Need to f/u with Heme Onc as an out pt Spoke to pt and family at bed side and discussed with them about his diagnosis (2) Pancytopenia Current Visit: No Status: Chronic Assessment and plan: reviewed labs.. 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 his pain tolerable with current regimen, Morphine 4mg PRN, [place] and Flexeril (6) Tobacco abuse Current Visit: No Status: Acute Assessment and plan: encourage patient to stop smoking. (7) Anxiety Current Visit: No Status: Acute Assessment and plan: on Xanax (8) DVT prophylaxis Current Visit: No Status: Acute Assessment and plan: SCD - Subjective Interval history: Mr. Lopez is a 61 year old male past medical history of depression and anxiety current smoker. The past 2 weeks patient has been experiencing significant and progressive lower extremity muscle cramps weakness headaches and shortness of breath. Last week He presented to his PCP due to the fact he was unable to complete his ADLs due to his symptoms. PCP sent him to have lab work completed and there was significant pancytopenia. He was sent to the ER at [place] and was eventually transferred to [facility]. He was seen by oncology, patient was transfused with platelets and bone marrow biopsy was completed. He was discharged home on Wednesday. He continued to experience pain and cramping in his lower extremities throughout the day and night without any relief to the point that he was unable to ambulate. He presented back to the emergency room. He got admitted with severe pancytopenia. His Bone marrow biopsy results came back as MDS. He denied any CP / SOB. His muscle cramps and b/l LE pain little better today - Constitutional Vitals: Temp Pulse Resp BP Pulse Ox 99.0 F 72 18 129/71 98 05/26/17 15:32 05/26/17 15:32 05/26/17 15:32 05/26/17 15:32 05/26/17 15:32 General appearance: Present: A&O X 3, no acute distress - Head Head exam: Present: atraumatic, normal inspection - Neck Neck exam general surgery: Present: supple - Respiratory Respiratory exam: Present: decreased breath sounds. Absent: rales, respiratory distress, rhonchi, wheezes - Cardiovascular Cardiovascular exam: Present: RRR, +S1, +S2. Absent: systolic murmur - Extremities Exam Extremities exam: Absent: calf tenderness, pedal edema, tenderness - Back Exam Back exam: Absent: CVA tenderness (L), CVA tenderness (R) - Psychiatric Psychiatric exam: Present: anxious Internal Medicine: Result - Labs CBC & Chem 7: 05/26/17 05:33 05/26/17 05:33 Labs: Short CBC 05/26/17 Range/Units 05:33 WBC 1.5 L (4.3-11.1) K/mcL Hgb 10.2 L D (12.9-16.9) g/dL Hct 29.4 L (37.5-50.1) % Plt Count 19 L* (140-400) K/mcL Neutrophils # 0.5 L (1.6-8.9) K/mcL BMP 05/26/17 05:33 Sodium 138 Potassium 4.1 Chloride 108 Carbon Dioxide 21 BUN 11 Creatinine 0.77 Glucose 97 Calcium 8.3 L - VTE Documentation of Mechanical Device: Intermittent pneumatic compression device Consult Discharge Plan - Plan Referrals: Getachew Fraser MD [Primary Care Provider] -
[2017-05-27] MEDS: *HR* HYDROcodone/Acet 5/325 mg TABLET PO PRN ×3 (00:14→22:12)
[2017-05-27] MEDS: *HR* Morphine 2 MG/ML SYRINGE IVP PRN (01:36)
[2017-05-27 05:45] LABS: Mean Corpuscular Volume 85.2 fL (83.0-100.0); Red Cell Distribution Width 14.8 % (11.5-14.5)
[2017-05-27 05:49] LABS: Basophils % 0.6 %; Hematocrit 28.7 % (37.5-50.1); Immature Granulocytes % 6.8 % (0-4); Lymphocytes # 0.7 K/mcL (0.6-4.6); Lymphocytes % 40.7 %; Mean Corpuscular HGB Conc 34.8 g/dL (31.6-35.5); Mean Corpuscular Hemoglobin 29.7 pg (28.0-33.3); Monocytes # 0.3 K/mcL (0.0-1.3); Monocytes % 15.4 %; Neutrophils # 0.6 K/mcL (1.6-8.9); Nucleated Red Blood Cells 1.2 /100 WBC (0); Red Blood Count 3.37 M/mcL (4.19-5.50); Segmented Neutrophils % 36.5 %
[2017-05-27 06:08] LABS: Platelet Count 18 K/mcL (140-400)
[2017-05-27 06:25] LABS: Burr Cells 1+ (Not Present); Platelet Estimate Marked Decrease (Normal); Poikilocytosis 1+ (Not Present); Reactive Lymphocytes Present (Not Present)
[2017-05-27] MEDS: ALPRAZolam 1 MG TABLET PO SCH ×3 (07:49→21:09)
[2017-05-27] MEDS: Gabapentin 100 MG CAPSULE PO SCH ×3 (07:49→21:09)
[2017-05-27] MEDS ORDERED: 0.9 % Sodium Chloride 250 ML ONE ×2 (09:37→12:09)
--- NOTE | 2017-05-27 10:29 | Internal Med Progress Note ---
Date of Encounter: 05/27/17 Time of Encounter: 10:25 - Assessment and plan (1) MDS (myelodysplastic syndrome) Current Visit: Yes Status: Acute Assessment and plan: His Pancytopenia with severe thrombocytopenia and anemia are due to MDS Cont close monitoring of his blood count transfuse as needed basis Need to f/u with Heme Onc as an out pt Spoke to pt and family at bed side and discussed with them about his diagnosis (2) Pancytopenia Current Visit: No Status: Chronic Assessment and plan: reviewed labs.. Hb 7.6, Platelets - 16 Hb improved and stable @ 10.0 after 3 U PRBC Cont close monitoring no need of PRBC today his Platelets still low at 19,000 after 4 unit total so far. Will give another 2 units today (3) Thrombocytopenia Current Visit: Yes Status: Acute (4) Anemia Current Visit: Yes Status: Acute Assessment and plan: due to MDS Qualifiers: Anemia type: bone marrow failure Bone marrow failure anemia type: other bone marrow failure Qualified Code(s): D61.89 - Other specified aplastic anemias and other bone marrow failure syndromes (5) Intractable pain Current Visit: Yes Status: Acute Assessment and plan: Patient was admitted for persistent intractable pain. his pain tolerable with current regimen, Morphine 4mg PRN, [place] and Flexeril (6) Tobacco abuse Current Visit: No Status: Acute Assessment and plan: encourage patient to stop smoking. (7) Anxiety Current Visit: No Status: Acute Assessment and plan: on Xanax (8) DVT prophylaxis Current Visit: No Status: Acute Assessment and plan: SCD (9) Physical deconditioning Current Visit: Yes Status: Acute Assessment and plan: PT / OT eval - Subjective Interval history: Mr. Lopez is a 61 year old male past medical history of depression and anxiety current smoker. The past 2 weeks patient has been experiencing significant and progressive lower extremity muscle cramps weakness headaches and shortness of breath. Last week He presented to his PCP due to the fact he was unable to complete his ADLs due to his symptoms. PCP sent him to have lab work completed and there was significant pancytopenia. He was sent to the ER at [place] and was eventually transferred to [facility]. He was seen by oncology, patient was transfused with platelets and bone marrow biopsy was completed. He was discharged home on Wednesday. He continued to experience pain and cramping in his lower extremities throughout the day and night without any relief to the point that he was unable to ambulate. He presented back to the emergency room. He got admitted with severe pancytopenia. His Bone marrow biopsy results came back as MDS. He denied any CP / SOB. His muscle cramps and b/l LE pain also better today. No events over night - Constitutional Vitals: Temp Pulse Resp BP Pulse Ox 97.6 F 89 20 119/83 92 05/27/17 09:55 05/27/17 09:55 05/27/17 09:55 05/27/17 09:55 05/27/17 09:55 General appearance: Present: A&O X 3, no acute distress Exam: looks little sleepy today - Head Head exam: Present: atraumatic, normal inspection - Respiratory Respiratory exam: Present: decreased breath sounds. Absent: rales, respiratory distress, rhonchi, wheezes - Cardiovascular Cardiovascular exam: Present: +S1, +S2 - GI/Abdominal GI/Abdominal exam: Present: normal bowel sounds, soft. Absent: rebound, rigid, tenderness - Extremities Exam Extremities exam: Absent: calf tenderness, pedal edema, tenderness - Back Exam Back exam: Absent: CVA tenderness (L), CVA tenderness (R) - Neurological Exam Neurological exam: Present: alert, oriented X3 - Psychiatric Psychiatric exam: Present: normal affect, normal mood Internal Medicine: Result - Labs CBC & Chem 7: 05/27/17 05:11 05/26/17 05:33 Labs: Short CBC 05/27/17 Range/Units 05:11 WBC 1.6 L (4.3-11.1) K/mcL Hgb 10.0 L (12.9-16.9) g/dL Hct 28.7 L (37.5-50.1) % Plt Count 18 L* (140-400) K/mcL Neutrophils # 0.6 L (1.6-8.9) K/mcL - VTE Documentation of Mechanical Device: Graduated compression elastic hosiery Consult Discharge Plan - Plan Referrals: Getachew Fraser MD [Primary Care Provider] -
[2017-05-28] MEDS: *HR* Morphine 2 MG/ML SYRINGE IVP PRN (03:42)
[2017-05-28 05:13] LABS: Hemoglobin 9.9 g/dL (12.9-16.9); Nucleated Red Blood Cells 1.6 /100 WBC (0); Red Cell Distribution Width 14.6 % (11.5-14.5)
[2017-05-28 05:15] LABS: Hematocrit 28.9 % (37.5-50.1); Immature Granulocytes % 7.1 % (0-4); Lymphocytes # 0.5 K/mcL (0.6-4.6); Lymphocytes % 39.4 %; Mean Corpuscular HGB Conc 34.3 g/dL (31.6-35.5); Mean Corpuscular Hemoglobin 29.3 pg (28.0-33.3); Mean Corpuscular Volume 85.5 fL (83.0-100.0); Monocytes # 0.3 K/mcL (0.0-1.3); Neutrophils # 0.4 K/mcL (1.6-8.9); Red Blood Count 3.38 M/mcL (4.19-5.50); Segmented Neutrophils % 31.5 %
[2017-05-28 05:42] LABS: Platelet Count 35 K/mcL (140-400)
[2017-05-28 05:46] LABS: Platelet Estimate Decreased (Normal)
[2017-05-28 05:47] LABS: Poikilocytosis 1+ (Not Present); Schistocytes 1+ (Not Present)
[2017-05-28] MEDS: *HR* HYDROcodone/Acet 5/325 mg TABLET PO PRN ×2 (06:47→12:14)
--- NOTE | 2017-05-28 08:05 | Discharge Summary ---
Date of Encounter: 05/28/17 Time of Encounter: 07:59 - Discharge Diagnosis (1) MDS (myelodysplastic syndrome) Priority: Primary Status: Acute (2) Pancytopenia Priority: Primary Status: Chronic (3) Thrombocytopenia Priority: Primary Status: Acute (4) Anemia Priority: Primary Status: Acute Qualifiers: Anemia type: bone marrow failure Bone marrow failure anemia type: other bone marrow failure Qualified Code(s): D61.89 - Other specified aplastic anemias and other bone marrow failure syndromes (5) Intractable pain Priority: Secondary Status: Acute (6) Tobacco abuse Priority: Secondary Status: Acute (7) Anxiety Priority: Secondary Status: Acute (8) DVT prophylaxis Priority: Secondary Status: Acute (9) Physical deconditioning Priority: Secondary Status: Acute - Discharge Medications Prescriptions: HYDROcodone/Acet 5/325 mg [[place] 5-325 mg] 1 tab PO Q6HR PRN #20 tablet PRN Reason: Moderate Pain Alprazolam [Xanax] 2 mg PO TID #20 tablet Cyclobenzaprine [Flexeril] 10 mg PO TID PRN #30 tablet PRN Reason: Spasms Petrolatum, white [Vaseline] 1 appl TP BID 7 Days #1 oint.pack Home Medications: Citalopram Hydrobromide [Citalopram HBr] 40 mg PO DAILY 05/18/17 [History] Alprazolam [Xanax] 2 mg PO TID #20 tablet 05/28/17 [Rx] Cyclobenzaprine [Flexeril] 10 mg PO TID PRN #30 tablet 05/28/17 [Rx] Gabapentin [Neurontin] 100 mg PO TID #0 capsule 05/28/17 [Rx] HYDROcodone/Acet 5/325 mg [[place] 5-325 mg] 1 tab PO Q6HR PRN #20 tablet [Rx] Petrolatum, white [Vaseline] 1 appl TP BID 7 Days #1 oint.pack 05/28/17 [Rx] Allergies/Adverse Reactions: 3 Allergy/AdvReac Type Severity Reaction Status Date / Time No Known Allergies Allergy Verified 05/18/17 15:37 Date of admission: 05/23/17 15:19 Primary care physician: Getachew Fraser MD Consults: 05/24/17 05:37 Consult to Oncology [CONS] Routine Consulting Provider: Oncology [facility] Reason for Consult: pancytopenia, leukemia, MDS Call Completed: No 05/25/17 18:23 Consult to Occupational Therapy [CONS] Routine Comment: Evaluate, develop and implement POC Reason for Consult: strengthening Consult to Physical Therapy [CONS] Routine Comment: Evaluate, develop and implement POC Reason for Consult: strengthening 05/26/17 11:52 Consult to [facility] [employer] [CONS] Routine Reason for SW Consult: Discharge planning - Patient Status Disposition: Transfer SNF Condition: Good Overall status at discharge: patient is back to baseline - Ambulatory Orders Ambulatory Orders: Complete Blood Count [HEME] Time Frame: 3 Days, Facility: [facility], Location: Lab - Discharge Instructions Follow Up With: Getachew Fraser MD [Primary Care Provider] - Tana Quiñones MD [Partnered Physician] - Additional Instructions: Please f/u with Heme Onc Dr. Quiñones in 5-7 days - Diet and Activity Activity: as per physical therapy, increase activity as tolerated Diet: advance to your usual diet Hospital course: Mr. Lopez is a 61 year old male past medical history of depression and anxiety current smoker. The past 2 weeks patient has been experiencing significant and progressive lower extremity muscle cramps weakness headaches and shortness of breath. Last week He presented to his PCP due to the fact he was unable to complete his ADLs due to his symptoms. PCP sent him to have lab work completed and there was significant pancytopenia. He was sent to the ER at [place] and was eventually transferred to [facility]. He was seen by oncology, patient was transfused with platelets and bone marrow biopsy was completed. He was discharged home on Wednesday. He continued to experience pain and cramping in his lower extremities throughout the day and night without any relief to the point that he was unable to ambulate. He presented back to the emergency room. He got admitted with severe pancytopenia. His Bone marrow biopsy results came back as Myelodysplastic syndrome with excess blasts. At this point Heme Onc recommended to continue symptomatic and supportive with transfusing PRBC and Platelets as needed basis and pain management. He did received 2 U PRBC his Hb improved and stayed stable @ 9.9. he did receive 6 U platelets and his platelets are @ 35 today. His pain also well controlled with current regimen. He did develop non pruritus palpable rash on his back, seems more like contact dermatitis. recommend hygiene shower regularly and apply skin emollients as needed basis. Pt was evaluated by PT / OT who recommend ECF placement for short term PT / OT. So will d/c him to ECF today in stable condition. - Time Spent with Patient Total time spent providing and/or coordinating discharge services: - Constitutional Vitals: Temp Pulse Resp BP Pulse Ox 98.7 F 106 16 154/90 96 05/28/17 06:54 05/28/17 06:54 05/28/17 06:54 05/28/17 06:54 05/28/17 06:54 General appearance: Present: A&O X 3, no acute distress - Head Head exam: Present: atraumatic, normal inspection - Respiratory Respiratory exam: Present: decreased breath sounds. Absent: rales, respiratory distress, rhonchi, wheezes - Cardiovascular Cardiovascular exam: Present: RRR, +S1, +S2. Absent: tachycardia - GI/Abdominal GI/Abdominal exam: Present: normal bowel sounds, soft. Absent: rebound, rigid, tenderness - Extremities Exam Extremities exam: Absent: calf tenderness, pedal edema, tenderness - Back Exam Back exam: Absent: CVA tenderness (L), CVA tenderness (R) - Neurological Exam Neurological exam: Present: alert, oriented X3 - Psychiatric Psychiatric exam: Present: normal affect, normal mood - Skin Skin exam: Present: rash (non pruritic palpable papillary lesions over back) - VTE Documentation of Mechanical Device: Graduated compression elastic hosiery
--- NOTE | 2017-05-28 08:08 | Physician Discharge Referral ---
ExtendedCare Referral Info Transfer To: F Provider in Charge after Transfer: PCP Institutional Level of Care: Skilled - Diagnosis (1) MDS (myelodysplastic syndrome) Status: Acute (2) Pancytopenia Status: Chronic (3) Thrombocytopenia Status: Acute (4) Anemia Status: Acute (5) Intractable pain Status: Acute (6) Tobacco abuse Status: Acute (7) Anxiety Status: Acute (8) DVT prophylaxis Status: Acute (9) Physical deconditioning Status: Acute - Transfer Medications Prescriptions: HYDROcodone/Acet 5/325 mg [[place] 5-325 mg] 1 tab PO Q6HR PRN #20 tablet PRN Reason: Moderate Pain Alprazolam [Xanax] 2 mg PO TID #20 tablet Cyclobenzaprine [Flexeril] 10 mg PO TID PRN #30 tablet PRN Reason: Spasms Petrolatum, white [Vaseline] 1 appl TP BID 7 Days #1 oint.pack Home Medications: Citalopram Hydrobromide [Citalopram HBr] 40 mg PO DAILY 05/18/17 [History] Alprazolam [Xanax] 2 mg PO TID #20 tablet 05/28/17 [Rx] Cyclobenzaprine [Flexeril] 10 mg PO TID PRN #30 tablet 05/28/17 [Rx] Gabapentin [Neurontin] 100 mg PO TID #0 capsule 05/28/17 [Rx] HYDROcodone/Acet 5/325 mg [[place] 5-325 mg] 1 tab PO Q6HR PRN #20 tablet [Rx] Petrolatum, white [Vaseline] 1 appl TP BID 7 Days #1 oint.pack 05/28/17 [Rx] Allergies/Adverse Reactions: 3 Allergy/AdvReac Type Severity Reaction Status Date / Time No Known Allergies Allergy Verified 05/18/17 15:37 - Respiratory Orders Smoking Cessation: Smoking cessation has been advised. For more information, call the [place] Tobacco Quit Line at 3-480-FMWI-NOW. CERTIFICATION: I certify that the transfer of the above named patient to an Extended Care Facility is necessary for the continuing treatment of the diagnosis listed. The above information is true and accurate reflection of patient's current condition. Confidential - Redisclosure prohibited without a patient's written consent.
[2017-05-28] MEDS: ALPRAZolam 1 MG TABLET PO SCH (08:42)
[2017-05-28] MEDS: Gabapentin 100 MG CAPSULE PO SCH (08:42)
[2017-05-28 10:43] VITALS: BP 148/89
== END 2017-05-28 12:35 | DRG 810 ==
LOC: EMEROO 09:49 → 3NENU 09:49 → EMEROO 10:54 → 3NENU 14:31 → SUATTDRO 15:19 → 3NENU 05-27 23:57
PROVIDERS: ADMIT Internal Medicine; ATTEND Family Medicine

== ENCOUNTER 2017-06-18 09:13 | Inpatient (IN) ==
[2017-06-18] MEDS ORDERED: 0.9 % Sodium Chloride 1,000 ML IVC ONE ×2 (09:20→09:36)
[2017-06-18] MEDS ORDERED: Piperacillin/Tazobactam 3.375 GM in Water for inj. (sterile) 20 ML IVP ONE (09:20)
[2017-06-18] MEDS ORDERED: Vancomycin 1,000 MG in D5% in Water 250 ML IVPB ONE ×2 (09:20→09:30)
[2017-06-18] MEDS ORDERED: Ondansetron 4 MG/2 ML VIAL IVP ONE (09:36)
[2017-06-18] MEDS ORDERED: *HR* Morphine 2 MG/ML SYRINGE IVP ONE (09:36)
--- NOTE | 2017-06-18 09:36 | Emergency Department Note ---
Disposition Clinical Impression: MDS (myelodysplastic syndrome), Thrombocytopenia Anemia Qualifiers: Anemia type: unspecified type Qualified Code(s): D64.9 - Anemia, unspecified Fever Qualifiers: Fever type: unspecified Qualified Code(s): R50.9 - Fever, unspecified Disposition: Admitted As Inpatient Condition: Fair Time of Disposition: 10:40 General Adult HPI - General Chief complaint: ED Fever Stated complaint: fever Time Seen by Provider: 06/18/17 09:20 Source: patient Mode of arrival: ambulatory Limitations: no limitations Nursing Notes Reviewed: Yes Vital Signs Reviewed: Yes - History of Present Illness HPI Narrative: Patient presents emergency room for evaluation of neutropenic fever and mild dysplastic syndrome. It is over the cancer Center this morning for transfusion and recommended come to the emergency room. Onset (ago): day(s) Location: head Radiation: non-radiation Pain Severity: mild Pain Scale: 5 Quality: aching Consistency: constant Improves with: nothing Worsens with: nothing Associated symptoms: Reports: cough, fever/chills Treatments Prior to Arrival: none - Related Data Home Medications Medication Instructions Recorded Confirmed Prochlorperazine Maleate 10 mg PO Q8HR 06/14/17 06/18/17 [Compazine] Alprazolam [Xanax] 2 mg PO TID 06/18/17 06/18/17 Citalopram Hydrobromide [Celexa] 40 mg PO DAILY 06/18/17 06/18/17 Previous Rx's Medication Instructions Recorded OxyCODONE Immed Rel [Roxicodone 5 5 mg PO Q8HR PRN #90 tablet 06/07/17 MG] Zolpidem [Ambien] 5 mg PO HS PRN #30 tablet 06/07/17 Allergies Allergy/AdvReac Type Severity Reaction Status Date / Time No Known Allergies Allergy Verified 06/18/17 09:16 All systems ED: reviewed and negative except as stated. Review of Systems: As Per HPI Constitutional: Reports: fever, chills, weakness ENT ED: Denies: throat pain, hearing loss, congestion Cardiovascular: Denies: chest pain, palpitations, dyspnea on exertion, orthopnea Respiratory: Reports: cough. Denies: dyspnea, wheezes, hemoptysis, sputum production Gastrointestinal: Denies: abdominal pain, nausea, vomiting, diarrhea Genitourinary: Denies: dysuria, frequency Musculoskeletal: Denies: back pain, neck pain Neurological: Denies: headache, weakness Psychiatric: Denies: anxiety, depression Endocrine: Reports: fatigue Past Medical History - Past Medical History Attestation: Yes The following information was validated with the patient. Source: patient Medical history: Reports: cancer, other Surgical history: Reports: orthopedic, other Psychiatric history: Reports: anxiety, depression - Social History Smoking Status: Current every day smoker Smokeless Tobacco Status: No Alcohol use: Reports: none Drug use: Reports: none Physical Exam - General Limitations: no limitations General appearance: alert - Head Head exam: atraumatic, normocephalic, normal inspection - Eye Eye exam: Present: normal appearance, PERRL, EOMI. Absent: scleral icterus, conjunctival injection, miosis, mydriasis - ENT ENT exam: normal exam, normal oropharynx - Neck Neck exam: Present: normal inspection, full ROM, trachea midline. Absent: tenderness, meningismus, lymphadenopathy - Chest Chest inspection: Present: normal inspection, symmetric chest wall rise. Absent : tenderness - Respiratory Respiratory exam: Present: normal lung sounds bilaterally. Absent: respiratory distress, wheezes, stridor, accessory muscle use - Cardiovascular Cardiovascular exam: Present: normal rhythm, tachycardia, normal heart sounds - Abdominal Exam Abdominal exam: Present: soft, Non-Tender, normal bowel sounds. Absent: tenderness, distention, guarding, rebound, rigidity, trauma, Ortega's sign, Rovsing's sign, tenderness at McBurney's Point, mass - Extremities Exam Extremities exam: Present: normal inspection, full ROM, normal capillary refill. Absent: tenderness, pedal edema, joint swelling - Back Exam Back exam: Present: normal inspection, full ROM. Absent: tenderness, CVA tenderness (R), CVA tenderness (L), muscle spasm - Neurological Exam Neurological exam: Present: alert, oriented X3, CN II-XII intact, normal gait - Psychiatric Psychiatric exam: Present: normal affect - Skin Skin exam: Present: warm, dry, intact, normal color. Absent: rash, cyanosis, diaphoresis, erythema Course Course Narrative: Patient seen and examined the time of arrival. See history of present illness. 61-year-old male with myelodysplastic syndrome presents to emergency room for evaluation of neutropenic fever. Patient was at his oncologist office this morning to have a scheduled transfusion. During the laboratory evaluation patient had a white blood cell, 0.6. His hemoglobin was 7.2. He also had fevers at home up to 102. Patient is currently in chemotherapy treatment. He has no reported this time. Currently is denying chest pain shortness of breath headache vision changes nausea vomiting or diarrhea. He has had fevers and chills and generalized malaise. Influenza blood cultures sputum cultures urinalysis CBC chemistry along with electrolyte evaluation to be completed here in the emergency room and a repeat at this time. First doses of vancomycin and Zosyn to be given here in the emergency room at the request of the oncologist. Patient will be provided with 2 L of fluid down here. He has no other significant medical history including congestive heart failure. He did describe some pain with swallowing several days ago but has gotten better. Oropharynx does not show any acute signs of exudate, ulcers or fungating lesions. Patient's lungs are clear heart is regular abdomen is soft nontender nondistended. Extremities membranes appear to be dry. Disposition pending workup and treatment course. Hospitals page at this time for admission process to be completed while the repeat labs are pending. Blood will be sent over from the oncology office to be transfused in the inpatient setting. Patient's previous platelet count was 31 yesterday. He has been down to as low as 4. Patient has been scheduled for the transfusions earlier today. Fluid hydration to be given. Repeat labs ordered. Consultation placed with the on-call hospitalist Dr. Gallegos. Detailed review of the presentation symptoms medical intervention discussion were had. Patient does not have any active sources of infection. Denies any other productive sputum cough congestion denies malaise abdominal pain burning with urination. He also denies any blood in his urine or stool. No changes in bowel or bladder habits. No dark color stool at this time. Skin does not show any visible signs of lesion at this point. No petechial lesions and he has no signs of oral ulcerations or irritation at this point. Patient will be admitted for definitive management. No critical care was applied to this patient's care - Reevaluation(s) Reevaluation #1: Hospitalist evaluated the patient here in the emergency room. Midline IV access to be obtained. A detailed review the labs as well as presentation was discussed at the bedside with the patient as well as with myself. In the ED. Patient will be admitted for definitive management. No other infectious etiology noted. Neutropenic precautions started this time. Patient is stable and appropriate interventions given at this time. Time: 10:40 Vital Signs Temperature 101.6 F H 06/18/17 09:16 Pulse Rate 111 06/18/17 09:16 Respiratory Rate 20 06/18/17 09:16 Blood Pressure 116/77 06/18/17 09:16 O2 Sat by Pulse Oximetry 100 06/18/17 09:16 Temperature 101.6 F H 06/18/17 09:16 Pulse Rate 99 06/18/17 09:44 Respiratory Rate 14 06/18/17 09:44 Blood Pressure 121/80 06/18/17 09:44 O2 Sat by Pulse Oximetry 99 06/18/17 09:44 Oxygen Delivery Oxygen Delivery Room Air Medical Decision Making - MDM Narrative Medical decision making narrative: Neutropenic fever, viral syndrome, myelodysplastic syndrome - Medical Records Medical records reviewed: Yes I reviewed the patient's medical records. - Lab Data Lab results reviewed: Yes I reviewed the patient's lab results. Result diagrams: 06/18/17 10:11 06/18/17 10:11 Lab Results 06/18/17 06/18/17 06/18/17 Range/Units 10:11 10:11 10:11 WBC 0.6 L* (4.3-11.1) K/mcL RBC 2.30 L (4.19-5.50) M/mcL Hgb 6.6 L (12.9-16.9) g/dL Hct 19.3 L (37.5-50.1) % MCV 83.9 (83.0-100.0) fL MCH 28.7 (28.0-33.3) pg MCHC 34.2 (31.6-35.5) g/dL RDW 13.2 (11.5-14.5) % Plt Count 40 L (140-400) K/mcL MPV TNP Nucleated RBCs/100 WBC 3.6 H (0) /100 WBC PT 16.5 H (9.4-12.1) Seconds INR 1.5 APTT 26.8 (26.0-36.0) Seconds Sodium 132 L (136-145) mEq/L Potassium 4.1 (3.5-5.1) mEq/L Chloride 102 (98-107) mEq/L Carbon Dioxide 22 L (23-29) mEq/L BUN 14 (8-23) mg/dL Creatinine 0.80 (0.70-1.30) mg/dL Est GFR ( Amer) > 60 (> 60) Est GFR (Non-Af Amer) > 60 (> 60) BUN/Creatinine Ratio 18 (6-26) Glucose 137 H (70-105) mg/dL Calculated Osmolality 277 L (280-300) Lactic Acid (0.5-2.2) mmol/L Calcium 8.8 (8.6-10.3) mg/dL Phosphorus 3.9 (2.7-4.5) mg/dL Magnesium 1.7 (1.6-2.6) mg/dL Total Bilirubin 0.9 (0.3-1.0) mg/dL Direct Bilirubin 0.2 (0.0-0.2) mg/dL Indirect Bilirubin 0.7 (0.0-1.2) mg/dL AST 9 L (13-39) Units/L ALT 7 (7-52) Units/L Alkaline Phosphatase 40 (34-104) Units/L Troponin I (< 0.04) ng/mL Serum Total Protein 6.4 (6.4-8.9) g/dL Albumin 3.1 L (3.5-5.7) g/dL Globulin 3.3 (2.4-3.5) g/dL Albumin/Globulin Ratio 0.9 L (1.1-2.2) Crossmatch 06/18/17 06/18/17 06/18/17 Range/Units 10:11 10:11 Unknown WBC (4.3-11.1) K/mcL RBC (4.19-5.50) M/mcL Hgb (12.9-16.9) g/dL Hct (37.5-50.1) % MCV (83.0-100.0) fL MCH (28.0-33.3) pg MCHC (31.6-35.5) g/dL RDW (11.5-14.5) % Plt Count (140-400) K/mcL MPV Nucleated RBCs/100 WBC (0) /100 WBC PT (9.4-12.1) Seconds INR APTT (26.0-36.0) Seconds Sodium (136-145) mEq/L Potassium (3.5-5.1) mEq/L Chloride (98-107) mEq/L Carbon Dioxide (23-29) mEq/L BUN (8-23) mg/dL Creatinine (0.70-1.30) mg/dL Est GFR ( Amer) (> 60) Est GFR (Non-Af Amer) (> 60) BUN/Creatinine Ratio (6-26) Glucose (70-105) mg/dL Calculated Osmolality (280-300) Lactic Acid 1.3 (0.5-2.2) mmol/L Calcium (8.6-10.3) mg/dL Phosphorus (2.7-4.5) mg/dL Magnesium (1.6-2.6) mg/dL Total Bilirubin (0.3-1.0) mg/dL Direct Bilirubin (0.0-0.2) mg/dL Indirect Bilirubin (0.0-1.2) mg/dL AST (13-39) Units/L ALT (7-52) Units/L Alkaline Phosphatase (34-104) Units/L Troponin I < 0.03 (< 0.04) ng/mL Serum Total Protein (6.4-8.9) g/dL Albumin (3.5-5.7) g/dL Globulin (2.4-3.5) g/dL Albumin/Globulin Ratio (1.1-2.2) Crossmatch See Detail - Radiology Data Radiology results reviewed: Yes I reviewed the patient's radiology results. Chest x-ray does not show any acute signs of pulmonary infiltrate or infection - EKG Data EKG #1 EKG attestation: Yes I reviewed and interpreted this EKG. EKG results narrative: EKG shows sinus tachycardia. Intervals appear to be normal. Patient does have some visible depression in V2 and V3 with approximately 1 mm depression carrying through into V4 and V5. Patient has no comparable old EKG. [place] is normal. No acute ST segment elevations or abnormalities consistent with the ST segment depressions. Patient is currently denying chest pain
[2017-06-18 10:21] LABS: Hemoglobin 6.6 g/dL (12.9-16.9)
[2017-06-18 10:22] LABS: Hematocrit 19.3 % (37.5-50.1); Immature Granulocytes % 1.8 % (0-4); Lymphocytes # 0.3 K/mcL (0.6-4.6); Lymphocytes % 57.1 %; Mean Corpuscular HGB Conc 34.2 g/dL (31.6-35.5); Mean Corpuscular Hemoglobin 28.7 pg (28.0-33.3); Mean Corpuscular Volume 83.9 fL (83.0-100.0); Neutrophils # 0.1 K/mcL (1.6-8.9); Nucleated Red Blood Cells 3.6 /100 WBC (0); Red Cell Distribution Width 13.2 % (11.5-14.5); Segmented Neutrophils % 16.1 %
[2017-06-18 10:26] LABS: Monocytes # 0.2 K/mcL (0.0-1.3); Platelet Count 40 K/mcL (140-400)
[2017-06-18 10:27] LABS: INR 1.5; Prothrombin Time 16.5 Seconds (9.4-12.1)
[2017-06-18 10:30] LABS: Activated Partial Thrombo Time 26.8 Seconds (26.0-36.0)
[2017-06-18 10:34] LABS: Alanine Aminotransferase 7 Units/L (7-52); Albumin 3.1 g/dL (3.5-5.7); Albumin/Globulin Ratio 0.9 (1.1-2.2); Alkaline Phosphatase 40 Units/L (34-104); Aspartate Amino Transferase 9 Units/L (13-39); BUN/Creatinine Ratio 18 (6-26); Bilirubin,Direct 0.2 mg/dL (0.0-0.2); Bilirubin,Indirect 0.7 mg/dL (0.0-1.2); Bilirubin,Total 0.9 mg/dL (0.3-1.0); Blood Urea Nitrogen 14 mg/dL (8-23); Calcium 8.8 mg/dL (8.6-10.3); Carbon Dioxide 22 mEq/L (23-29); Chloride 102 mEq/L (98-107); Globulin 3.3 g/dL (2.4-3.5); Glucose 137 mg/dL (70-105); Magnesium 1.7 mg/dL (1.6-2.6); Osmolality,Calculated 277 (280-300); Phosphorous 3.9 mg/dL (2.7-4.5); Potassium 4.1 mEq/L (3.5-5.1); Sodium 132 mEq/L (136-145); Total Protein 6.4 g/dL (6.4-8.9); eGFR For African Americans > 60 (> 60); eGFR For Non-African Americans > 60 (> 60)
[2017-06-18 11:07] LABS: Platelet Estimate Decreased (Normal)
[2017-06-18] MEDS ORDERED: Ondansetron 4 MG/2 ML VIAL IVP PRN (11:46)
--- NOTE | 2017-06-18 11:58 | Internal Med History&Physical ---
Date of Encounter: 06/18/17 Time of Encounter: 11:56 Assessment and Plan (1) Neutropenic fever Current visit: Yes Status: Acute Patient has neutropenia fever. Absolute neutrophil count is 107. Temperature in the emergency room 101.6. He has been complaining for the past day of sore throat and difficulty swallowing. No other obvious source of infection. Will do [place] cultures. Throat swab. Start emperic Antibiotics with vancomycin and Zosyn. Hydrate. Keep on neutropenic precautions room (2) Tobacco abuse Current visit: No Status: Acute Counseled. nicotine patch (3) Pancytopenia Current visit: No Status: Chronic Due to myelodysplastic syndrome. Transfuse 1 unit RBCs. Patient has EKG changes in the form of lateral ST segment depression. This may be demand ischemia from anemia. We will transfuse the patient. trend serial troponin (4) MDS (myelodysplastic syndrome) Current visit: Yes Status: Acute On gemcitabine. Will consult heme/onc Internal Medicine - H&P: HPI Chief complaint: fever History of present illness: Mr. Lopez is a 61 year old male presents from oncologist office because of neutropenic fever. Patient was supposed to go to oncologist office to receive a blood transfusion today. However laboratory workup showed evidence of neutropenia. Absolute neutrophyl count is 107. Patient mentioned that he was febrile at the oncologist office. This temperature and emergency room was 101.6. Patient mentioned that for the past day he has been having sore throat with difficulty swallowing and intermittent dry cough. He denies shortness of breath. He denies any diarrhea. No urinary symptoms. No headache neck pain or stiffness. No abdominal pain. He mentioned that he has been receiving blood transfusion on outpatient basis and thinks he may have been exposed to sick people. No recent travel. Skin rash. No joint pain or swelling. Patient has No lines. Past Med Surg Social Fam HX - Past Medical History Medical history: cancer, other Psychiatric history: anxiety, depression - Past Surgical History Surgical History: orthopedic, other - Social History Smoking Status: Current every day smoker Smokeless Tobacco Status: No Alcohol use: none Drug use: none - Family History Grandmother Family Member Ethnicity: Non- Living Status: Hx Family Cancer: Yes (colon cancer) Internal Medicine - H&P: Meds OxyCODONE Immed Rel [Roxicodone 5 MG] 5 mg PO Q8HR PRN #90 tablet 06/07/17 [Rx] Zolpidem [Ambien] 5 mg PO HS PRN #30 tablet 06/07/17 [Rx] Prochlorperazine Maleate [Compazine] 10 mg PO Q8HR 06/14/17 [History] Alprazolam [Xanax] 2 mg PO TID 06/18/17 [History] Citalopram Hydrobromide [Celexa] 40 mg PO DAILY 06/18/17 [History] 3 Allergy/AdvReac Type Severity Reaction Status Date / Time No Known Allergies Allergy Verified 06/18/17 09:16 All Systems PM: A 10-system review of systems was performed and is negative for pertinent findings except as documented above in the HPI. Review of systems: 10 point review of systems is negative except for HPI - Constitutional Vitals: Temp Pulse Resp BP Pulse Ox 99.4 F 68 18 113/69 97 06/18/17 11:26 06/18/17 11:26 06/18/17 11:26 06/18/17 11:26 06/18/17 10:52 Exam: Gen.: patient is alert oriented times 3 not in distress. Cardiac: normal S1 S2 no additional sounds or murmurs. Chest: clear to auscultation bilaterally Abdomen: soft nontender nondistended normal bowel sounds lower extremity: lax calf muscles no swelling neuro: no focal deficit Internal Med - H&P Results - Labs CBC & Chem 7: 06/18/17 10:11 06/18/17 10:11 Labs: Short CBC 06/18/17 Range/Units 10:11 WBC 0.6 L* (4.3-11.1) K/mcL Hgb 6.6 L (12.9-16.9) g/dL Hct 19.3 L (37.5-50.1) % Plt Count 40 L (140-400) K/mcL Neutrophils # 0.1 L (1.6-8.9) K/mcL BMP 06/18/17 10:11 Sodium 132 L Potassium 4.1 Chloride 102 Carbon Dioxide 22 L BUN 14 Creatinine 0.80 Glucose 137 H Calcium 8.8 Cardiac Enzymes 06/18/17 Range/Units 10:11 Troponin I < 0.03 (< 0.04) ng/mL Liver Function 06/18/17 Range/Units 10:11 Total Bilirubin 0.9 (0.3-1.0) mg/dL Direct Bilirubin 0.2 (0.0-0.2) mg/dL AST 9 L (13-39) Units/L ALT 7 (7-52) Units/L Alkaline Phosphatase 40 (34-104) Units/L Albumin 3.1 L (3.5-5.7) g/dL
[2017-06-18] MEDS ORDERED: Vancomycin 1,000 MG in D5% in Water 250 ML IVPB SCH (12:00)
--- NOTE | 2017-06-18 12:41 | Oncology Inp Consult Note ---
Date of Encounter: 06/18/17 Time of Encounter: 12:00 Assessment and Plan (1) Neutropenic fever Status: Acute Assessment and plan: PAnculture. Start neupogen. BSA Vancomycin/zosyn. IV hydration. Mucosal inflammation? dysphagia-swabs. No thrush Cytopenia-anemia PRBC after fever controlled MAintain plt >10k. Continue outpatient pain medications. MDS/MF RAEB--peripheral blood findings on blood pending r/o AML Plan reviewed with patient and mother bedside today. - Data of Consult Requesting Physician: Terry Vazquez Primary Care Provider: Getachew Fraser MD - Consult Narrative Reason for consult: MDS, neutropenic fever History of present illness: Mr. Lopez is a 61 year old male with a past medical history of depression and anxiety, significant pancytopenia who had a bone marrow bx--05/14--showed hypercellular marrow with fibrosis, increase in blasts RAEB-1 with dysmegakaryopoesis consistent with MDS. CT abdomen and pelvis (05/14) showed sclerotic lesions in chest, abdomen, and pelvis along with a 0.5 cm pulmonary nodule in the right lower lung. PSA was nbormal. MRI of thoracolumbar spine (05/14) showed sclerotic lesions in the T10 and T12 vertebral bodies. CT chest 06/13 showed stable 4-5 mm right lower lobe nodule. Mild emphysema. scattered sclerotic osseous lesions Started decitabine C1 (06/13), tolerated well. Develops cramping in legs- started pain meds. s/p plt transfusion with improvement. Developed fever 100.6, not received PRBC. Due to neutropenia, sore throat hospitalized. Dysphagia--to swallowing food and saliva. General wkness, no headaches SOB or cough. Past Med Surg Social Fam HX - Past Medical History Medical history: cancer, other Psychiatric history: anxiety, depression - Past Surgical History Surgical History: orthopedic, other - Social History Smoking Status: Current every day smoker Smokeless Tobacco Status: No Alcohol use: none Drug use: none - Family History Grandmother Family Member Ethnicity: Non- Living Status: Hx Family Cancer: Yes (colon cancer) Medications and Allergies OxyCODONE Immed Rel [Roxicodone 5 MG] 5 mg PO Q8HR PRN #90 tablet 06/07/17 [Rx] Zolpidem [Ambien] 5 mg PO HS PRN #30 tablet 06/07/17 [Rx] Prochlorperazine Maleate [Compazine] 10 mg PO Q8HR 06/14/17 [History] Alprazolam [Xanax] 2 mg PO TID 06/18/17 [History] Citalopram Hydrobromide [Celexa] 40 mg PO DAILY 06/18/17 [History] 3 Allergy/AdvReac Type Severity Reaction Status Date / Time No Known Allergies Allergy Verified 06/18/17 09:16 All systems: reviewed and no additional remarkable complaints except as stated Review of systems: sore throat, cramps in legs Oncology - Exam - Constitutional Vitals: Temp Pulse Resp BP Pulse Ox 99.4 F 68 18 113/69 97 06/18/17 11:26 06/18/17 11:26 06/18/17 11:26 06/18/17 11:26 06/18/17 10:52 General appearance: average body habitus - Head Head exam: Present: atraumatic, normal inspection - Eye Eye exam: Present: normal appearance - ENT ENT exam: Present: mucous membranes moist - Neck Neck exam: Present: full ROM - Respiratory Respiratory exam: Present: CTAB - Cardiovascular Cardiovascular exam: Present: +S1, +S2 - GI/Abdominal GI/Abdominal exam: Present: normal bowel sounds, soft - Extremities Exam Extremities exam: Present: normal inspection - Neurological Exam Neurological exam: Present: alert, CN II-XII intact, oriented X3 - Psychiatric Psychiatric exam: Present: normal affect Oncology - Results Labs: Short CBC 06/18/17 Range/Units 10:11 WBC 0.6 L* (4.3-11.1) K/mcL Hgb 6.6 L (12.9-16.9) g/dL Hct 19.3 L (37.5-50.1) % Plt Count 40 L (140-400) K/mcL Neutrophils # 0.1 L (1.6-8.9) K/mcL BMP 06/18/17 10:11 Sodium 132 L Potassium 4.1 Chloride 102 Carbon Dioxide 22 L BUN 14 Creatinine 0.80 Glucose 137 H Calcium 8.8 Cardiac Enzymes 06/18/17 Range/Units 10:11 Troponin I < 0.03 (< 0.04) ng/mL Liver Function 06/18/17 Range/Units 10:11 Total Bilirubin 0.9 (0.3-1.0) mg/dL Direct Bilirubin 0.2 (0.0-0.2) mg/dL AST 9 L (13-39) Units/L ALT 7 (7-52) Units/L Alkaline Phosphatase 40 (34-104) Units/L Albumin 3.1 L (3.5-5.7) g/dL Consult Discharge Plan - Plan Referrals: Getachew Fraser MD [Primary Care Provider] -
[2017-06-18] MEDS: Acetaminophen 325 MG TABLET PO PRN ×2 (14:57→21:47)
[2017-06-18] MEDS: 0.9 % Sodium Chloride 1,000 ML IVC SCH ×2 (14:57→21:10)
[2017-06-18] MEDS ORDERED: 0.9 % Sodium Chloride 500 ML ONE (18:35)
[2017-06-18] MEDS: Piperacillin/Tazobactam 3.375 GM/200 ML BAG IVPB SCH (18:42)
[2017-06-18] MEDS: *HR* OxyCODONE Immed Rel 5 MG TABLET PO PRN (18:42)
[2017-06-18] MEDS: Vancomycin 1,000 MG in D5% in Water 250 ML IVPB SCH (21:10)
[2017-06-19] MEDS: Piperacillin/Tazobactam 3.375 GM/200 ML BAG IVPB SCH ×3 (03:19→18:02)
[2017-06-19 04:44] LABS: Hemoglobin 6.6 g/dL (12.9-16.9); Mean Corpuscular Volume 82.8 fL (83.0-100.0)
[2017-06-19 04:45] LABS: Hematocrit 19.3 % (37.5-50.1); Immature Granulocytes % 1.7 % (0-4); Lymphocytes # 0.4 K/mcL (0.6-4.6); Lymphocytes % 62.1 %; Mean Corpuscular HGB Conc 34.2 g/dL (31.6-35.5); Mean Corpuscular Hemoglobin 28.3 pg (28.0-33.3); Monocytes # 0.1 K/mcL (0.0-1.3); Monocytes % 15.5 %; Neutrophils # 0.1 K/mcL (1.6-8.9); Nucleated Red Blood Cells 3.4 /100 WBC (0); Red Blood Count 2.33 M/mcL (4.19-5.50); Red Cell Distribution Width 13.7 % (11.5-14.5); Segmented Neutrophils % 20.7 %
[2017-06-19 04:53] LABS: BUN/Creatinine Ratio 15 (6-26); Blood Urea Nitrogen 10 mg/dL (8-23); C-Reactive Protein 285 mg/L (Less than 10); Calcium 7.8 mg/dL (8.6-10.3); Carbon Dioxide 23 mEq/L (23-29); Chloride 107 mEq/L (98-107); Glucose 122 mg/dL (70-105); Magnesium 1.6 mg/dL (1.6-2.6); Osmolality,Calculated 278 (280-300); Sodium 134 mEq/L (136-145); eGFR For African Americans > 60 (> 60); eGFR For Non-African Americans > 60 (> 60)
[2017-06-19 05:35] LABS: Platelet Count 11 K/mcL (140-400)
[2017-06-19 05:36] LABS: Platelet Estimate Marked Decrease (Normal)
[2017-06-19] MEDS: 0.9 % Sodium Chloride 1,000 ML IVC SCH ×2 (06:08→21:19)
[2017-06-19 06:28] LABS: Bilirubin,Urine Negative (Negative); Blood,Urine Negative (Negative); Clarity,Urine Clear (Clear); Color,Urine Yellow (Yellow); Glucose,Urine (UA) Normal (Normal); Ketones,Urine Negative (Negative); Leukocyte Esterase,Urine Negative (Negative); Nitrite,Urine Negative (Negative); Protein,Urine 30 mg/dL (Neg-Trace); Specific Gravity,Urine 1.023 (1.010-1.025)
[2017-06-19 06:29] LABS: Bacteria,Urine None Seen per hpf (None-Few); Hyaline Casts,Urine None Seen per lpf (None-Few); RBC,Urine 0-3 per hpf (0-3); Squamous Epithelial Cell,Urine Many per lpf (None-Few)
[2017-06-19] MEDS: Acetaminophen 325 MG TABLET PO PRN ×2 (06:37→22:31)
--- NOTE | 2017-06-19 07:38 | Electrocardiograph Report ---
[place] [id number] Test Date: 2017-06-18 Pat Name: Flavio Lopez Department: 103 Room: 2NE21 Gender: M [employer]: AM : 1955 Requested By: Lyle Tucker Order Number: [id number] Reading MD: Nick Valencia DO Measurements Intervals [place] Rate: 103 P: 68 WI: 112 QRS: 75 QRSD: 91 T: 49 QT: 329 QTc: 389 Interpretive Statements SINUS TACHYCARDIA WITH SHORT WI INTERVAL ANTEROSEPTAL ST-T CHANGES POSSIBLE DUE TO ISCHEMIA Electronically Signed On 06-19-2017 7:37:05 EST by Nick Valencia DO
[2017-06-19] MEDS: Vancomycin 1,000 MG in D5% in Water 250 ML IVPB SCH ×2 (09:49→22:06)
[2017-06-19] MEDS: Famotidine 20 MG/2 ML VIAL IVP SCH (09:50)
[2017-06-19] MEDS ORDERED: 0.9 % Sodium Chloride 500 ML ONE (14:05)
--- NOTE | 2017-06-19 16:25 | Internal Med Progress Note ---
Date of Encounter: 06/19/17 Time of Encounter: 16:23 - Assessment and plan (1) Neutropenic fever Current Visit: Yes Status: Acute Assessment and plan: Absolute neutrophil count still owe less than 500 (135). Continue neutropenic precautions. Patient continues to fever spikes. Check 2 more sets of blood cultures today. Continue vancomycin and Zosyn. Source of infection unclear except for possible pharyngitis. Await both cultures. (2) Tobacco abuse Current Visit: No Status: Acute Assessment and plan: Nicotine patch. (3) Pancytopenia Current Visit: No Status: Chronic Assessment and plan: Patient still pancytopenia. Typically, decreased 11,000. The risk of spontaneous bleeding I will transfused patients with platelets. (4) MDS (myelodysplastic syndrome) Current Visit: Yes Status: Acute Assessment and plan: No new orders - Subjective Interval history: Patient seen and examined. Patient continues to have fever spikes. He feels generally better than yesterday. He notices improvement throat pain. Platelet count today's 11,000 with no evidence of bleeding. Patient denies any cough expectoration diarrhea urinary symptoms headache or neck pain. Patient was having yesterday chest pain in the lower sternal area only when he coughs. - Constitutional Vitals: Temp Pulse Resp BP Pulse Ox 98.6 F 94 16 120/74 94 06/19/17 15:02 06/19/17 15:02 06/19/17 15:02 06/19/17 15:02 06/19/17 15:02 Exam: Gen.: patient is alert oriented times 3 not in distress. Cardiac: normal S1 S2 no additional sounds chest: clear auscultation abdomen: soft nontender nondistended normal bowel sounds Neuro: no focal deficits LE: no swelling Internal Medicine: Result - Labs CBC & Chem 7: 06/19/17 04:04 06/19/17 04:04 Labs: Short CBC 06/19/17 Range/Units 04:04 WBC 0.6 L* (4.3-11.1) K/mcL Hgb 6.6 L (12.9-16.9) g/dL Hct 19.3 L (37.5-50.1) % Plt Count 11 L* D (140-400) K/mcL Neutrophils # 0.1 L (1.6-8.9) K/mcL BMP 06/19/17 04:04 Sodium 134 L Potassium 4.0 Chloride 107 Carbon Dioxide 23 BUN 10 Creatinine 0.65 L Glucose 122 H Calcium 7.8 L Cardiac Enzymes 06/18/17 06/18/17 Range/Units 17:00 21:51 Troponin I < 0.03 < 0.03 (< 0.04) ng/mL Urine 06/19/17 Range/Units 05:55 Urine Color Yellow (Yellow) Urine Clarity Clear (Clear) Urine pH 6.0 (5.0-8.0) pH Units Ur Specific [place] 1.023 (1.010-1.025) Urine Protein 30 H (Neg-Trace) mg/dL Urine Glucose (UA) Normal (Normal) mg/dL - ABG Interpretation ABG results: PT/INR, D-dimer PT 16.5 Seconds (9.4-12.1) H 06/18/17 10:11 - VTE Documentation of Mechanical Device: Intermittent pneumatic compression device Consult Discharge Plan - Plan Referrals: Getachew Fraser MD [Primary Care Provider] -
[2017-06-19] MEDS: *HR* OxyCODONE Immed Rel 5 MG TABLET PO PRN (18:02)
[2017-06-20] MEDS: Piperacillin/Tazobactam 3.375 GM/200 ML BAG IVPB SCH ×3 (01:15→16:48)
[2017-06-20] MEDS: *HR* OxyCODONE Immed Rel 5 MG TABLET PO PRN ×3 (03:42→22:29)
[2017-06-20 04:13] LABS: Hematocrit 17.4 % (37.5-50.1); Hemoglobin 6.1 g/dL (12.9-16.9); Mean Corpuscular HGB Conc 35.1 g/dL (31.6-35.5); Mean Corpuscular Hemoglobin 28.6 pg (28.0-33.3); Mean Corpuscular Volume 81.7 fL (83.0-100.0); Monocytes # 0.1 K/mcL (0.0-1.3); Neutrophils # 0.1 K/mcL (1.6-8.9); Red Blood Count 2.13 M/mcL (4.19-5.50); Red Cell Distribution Width 13.6 % (11.5-14.5)
[2017-06-20 04:21] LABS: Platelet Count 12 K/mcL (140-400)
[2017-06-20 04:25] LABS: BUN/Creatinine Ratio 14 (6-26); Blood Urea Nitrogen 9 mg/dL (8-23); C-Reactive Protein 272 mg/L (Less than 10); Calcium 8.1 mg/dL (8.6-10.3); Carbon Dioxide 24 mEq/L (23-29); Chloride 107 mEq/L (98-107); Glucose 118 mg/dL (70-105); Magnesium 1.7 mg/dL (1.6-2.6); Osmolality,Calculated 280 (280-300); Potassium 3.6 mEq/L (3.5-5.1); Sodium 135 mEq/L (136-145); eGFR For African Americans > 60 (> 60); eGFR For Non-African Americans > 60 (> 60)
[2017-06-20 04:47] LABS: Lymphocytes # 0.4 K/mcL (0.6-4.6); Platelet Estimate Decreased (Normal)
[2017-06-20 04:48] LABS: Anisocytosis 2+ (Not Present); Microcytosis Present (Not Present)
[2017-06-20] MEDS ORDERED: 0.9 % Sodium Chloride 250 ML ONE (05:18)
[2017-06-20] MEDS: Famotidine 20 MG/2 ML VIAL IVP SCH (10:26)
[2017-06-20] MEDS: Acetaminophen 325 MG TABLET PO PRN (14:00)
--- NOTE | 2017-06-20 14:40 | Internal Med Progress Note ---
Date of Encounter: 06/20/17 Time of Encounter: 14:38 - Assessment and plan (1) Neutropenic fever Current Visit: Yes Status: Acute Assessment and plan: Absolute neutrophil count still owe less than 500. Continue neutropenic precautions. Patient continues to fever spikes. Continue vancomycin and Zosyn. Source of infection unclear except for possible pharyngitis. Await both cultures. I will get a contrasted CT scan of the chest abdomen pelvis to look for any occult infection. (2) Tobacco abuse Current Visit: No Status: Acute Assessment and plan: Nicotine patch. (3) Pancytopenia Current Visit: No Status: Chronic Assessment and plan: Patient still pancytopenia. platelets decreased 12,000. because of the risk of spontaneous bleeding I will transfuse patient with platelets. (4) MDS (myelodysplastic syndrome) Current Visit: Yes Status: Acute Assessment and plan: No new orders - Subjective Interval history: Patient seen and examined. Still has Fever spikes. Tmax today 100.8. He feels generally better but no obvious source for fever yet. He notices improvement throat pain. Platelet count today's 12,000 after he received platelets transfusion yesterday. No obvious bleeding. Patient denies any cough expectoration diarrhea urinary symptoms headache or neck pain. - Constitutional Vitals: Temp Pulse Resp BP Pulse Ox 100.8 F H 109 18 132/76 98 06/20/17 13:41 06/20/17 13:41 06/20/17 13:41 06/20/17 13:41 06/20/17 13:16 Exam: Gen.: patient is alert oriented times 3 not in distress. Cardiac: normal S1 S2 no additional sounds or murmurs. Chest: clear to auscultation Abdomen: soft nontender nondistended normal bowel sounds lower extremity: lax calf muscles no swelling neuro: no focal deficit Internal Medicine: Result - Labs CBC & Chem 7: 06/20/17 03:40 06/20/17 03:40 Labs: Short CBC 06/20/17 Range/Units 03:40 WBC 0.5 L* (4.3-11.1) K/mcL Hgb 6.1 L (12.9-16.9) g/dL Hct 17.4 L (37.5-50.1) % Plt Count 12 L* (140-400) K/mcL Neutrophils # 0.1 L (1.6-8.9) K/mcL BMP 06/20/17 03:40 Sodium 135 L Potassium 3.6 Chloride 107 Carbon Dioxide 24 BUN 9 Creatinine 0.65 L Glucose 118 H Calcium 8.1 L - ABG Interpretation ABG results: PT/INR, D-dimer PT 16.5 Seconds (9.4-12.1) H 06/18/17 10:11 - VTE Documentation of Mechanical Device: Intermittent pneumatic compression device Consult Discharge Plan - Plan Referrals: Getachew Fraser MD [Primary Care Provider] -
[2017-06-20] MEDS: 0.9 % Sodium Chloride 1,000 ML IVC SCH ×2 (14:42→14:43)
--- NOTE | 2017-06-20 16:09 | Oncology Inp Progress Note ---
Date of Encounter: 06/20/17 Time of Encounter: 16:00 (1) Neutropenic fever Current Visit: Yes Status: Acute Assessment and plan: MDS-RAEB-1 with fibrosis per final path, s/p decitabine C1, with cytopenia, fever BC neg. On neupogen. Fever trend down. Diflucan for dysphgia\ CT per primary team MAintain plt >10k. PRBC today Continue outpatient pain medications. Plan reviewed with patient. Oncology: Subj Interval history: Denies sore throat. +aches - Constitutional Vitals: Vital Signs Temp Pulse Resp BP Pulse Ox 06/20/17 15:38 100.0 F H 91 18 118/70 98 06/20/17 14:48 100.4 F H 90 18 114/72 98 06/20/17 13:56 98.2 F 100 18 115/70 06/20/17 13:41 100.8 F H 109 18 132/76 06/20/17 13:17 97.9 F 103 20 124/73 06/20/17 13:16 100.4 F H 103 18 118/79 98 06/20/17 11:18 98.4 F 103 18 108/76 97 06/20/17 11:16 98.4 F 102 122/78 98 06/20/17 11:01 99.5 F 103 20 108/76 06/20/17 08:00 98.7 F 93 16 108/74 97 06/20/17 03:52 98.3 F 86 16 109/67 95 06/19/17 23:37 98.9 F 97 19 104/66 96 06/19/17 22:21 96 06/19/17 19:54 98.9 F 100 17 115/66 96 06/19/17 17:45 99 F 108 16 102/73 99 Intake and Output 06/20/17 06/20/17 06/20/17 07:59 15:59 23:59 Intake Total 1650 / 1650 1023 / 1023 800 / 800 Output Total 550 / 550 Balance 1100 / 1100 1023 / 1023 800 / 800 Intake: IV Fluids 1650 / 1650 0.9 % Sodium Chloride 1,000 ML 1000 / 1000 @ 100 mls/hr IVC .Q10H [facility] Rx#: [id number] Zosyn Premix 3.375 GM/200 ML 3. 400 / 400 375 gm In 200 ml @ 50 mls/hr IVPB Q8H [facility] Rx#:[id number] Vancocin 1,000 MG In Dextrose 5 250 / 250 % 250 ML @ 167 mls/hr IVPB Q12H [facility] Rx#:[id number] Oral 480 / 480 800 / 800 Blood Product 543 / 543 Platelet Pheresis Lp Irr 3rd 218 / 218 Unit [id number] Rbcs Leuko Poor As-1 Unit 0 / 0 [id number] Rbcs Leuko Poor As-1 Unit 325 / 325 [id number] Output: Urine 550 / 550 Other: Meal Lunch Percent of Meal Consumed 25% Weight 61.4 kg Patient Weight 06/20/17 23:59 Weight 61.4 kg General appearance: no acute distress - Head Head exam: Present: atraumatic, normal inspection - ENT ENT exam: Present: mucous membranes moist, normal oropharynx - Neck Neck exam: Present: full ROM - Respiratory Respiratory exam: Present: CTAB - Cardiovascular Cardiovascular exam: Present: +S1, +S2 - GI/Abdominal GI/Abdominal exam: Present: normal bowel sounds, soft - Extremities Exam Extremities exam: Present: normal inspection - Neurological Exam Neurological exam: Present: alert, CN II-XII intact, oriented X3 - Psychiatric Psychiatric exam: Present: normal affect - Skin Skin exam: Present: normal color Oncology: Obj Data - Labs CBC & Chem 7: 06/20/17 03:40 06/20/17 03:40 Labs: Laboratory Results - last 24 hr 06/18/17 06/20/17 06/20/17 Unknown 03:40 03:40 WBC 0.5 L* RBC 2.13 L Hgb 6.1 L Hct 17.4 L MCV 81.7 L MCH 28.6 MCHC 35.1 RDW 13.6 Plt Count 12 L* MPV TNP Seg Neutrophils % 10.0 Lymphocytes % 80.0 Monocytes % 10.0 Neutrophils # 0.1 L Lymphocytes # 0.4 L Monocytes # 0.1 Platelet Estimate Decreased L Anisocytosis 2+ A Microcytosis Present A Sodium 135 L Potassium 3.6 Chloride 107 Carbon Dioxide 24 BUN 9 Creatinine 0.65 L Est GFR ( Amer) > 60 Est GFR (Non-Af Amer) > 60 BUN/Creatinine Ratio 14 Glucose 118 H Calculated Osmolality 280 Calcium 8.1 L Magnesium 1.7 C-Reactive Protein 272 H Vancomycin Trough Crossmatch See Detail 06/20/17 10:32 WBC RBC Hgb Hct MCV MCH MCHC RDW Plt Count MPV Seg Neutrophils % Lymphocytes % Monocytes % Neutrophils # Lymphocytes # Monocytes # Platelet Estimate Anisocytosis Microcytosis Sodium Potassium Chloride Carbon Dioxide BUN Creatinine Est GFR ( Amer) Est GFR (Non-Af Amer) BUN/Creatinine Ratio Glucose Calculated Osmolality Calcium Magnesium C-Reactive Protein Vancomycin Trough 9.2 L Crossmatch - ABG Interpretation ABG results: PT/INR, D-dimer PT 16.5 Seconds (9.4-12.1) H 06/18/17 10:11 Consult Discharge Plan - Plan Referrals: Getachew Fraser MD [Primary Care Provider] -
[2017-06-20] MEDS: Vancomycin 1,250 MG in D5% in Water 250 ML IVPB SCH (16:48)
[2017-06-20] MEDS: Fluconazole 100 MG/50 ML 100 MG/50 ML BAG IVPB SCH (16:54)
[2017-06-21] MEDS: Piperacillin/Tazobactam 3.375 GM/200 ML BAG IVPB SCH ×3 (04:03→17:11)
[2017-06-21] MEDS: Acetaminophen 325 MG TABLET PO PRN ×2 (04:04→20:26)
[2017-06-21] MEDS: Vancomycin 1,250 MG in D5% in Water 250 ML IVPB SCH (04:04)
[2017-06-21 07:56] LABS: Red Cell Distribution Width 13.2 % (11.5-14.5)
[2017-06-21 07:58] LABS: Hemoglobin 8.6 g/dL (12.9-16.9); Lymphocytes # 0.3 K/mcL (0.6-4.6); Lymphocytes % 62.8 %; Mean Corpuscular HGB Conc 35.8 g/dL (31.6-35.5); Mean Corpuscular Volume 80.8 fL (83.0-100.0); Mean Platelet Volume 13.3 fL (9.4-12.4); Monocytes # 0.1 K/mcL (0.0-1.3); Monocytes % 16.3 %; Neutrophils # 0.1 K/mcL (1.6-8.9); Red Blood Count 2.97 M/mcL (4.19-5.50); Segmented Neutrophils % 20.9 %
[2017-06-21 08:11] LABS: BUN/Creatinine Ratio 18 (6-26); Blood Urea Nitrogen 12 mg/dL (8-23); C-Reactive Protein 226 mg/L (Less than 10); Calcium 8.1 mg/dL (8.6-10.3); Carbon Dioxide 22 mEq/L (23-29); Chloride 105 mEq/L (98-107); Glucose 133 mg/dL (70-105); Magnesium 1.5 mg/dL (1.6-2.6); Osmolality,Calculated 278 (280-300); Potassium 3.2 mEq/L (3.5-5.1); Sodium 133 mEq/L (136-145); eGFR For African Americans > 60 (> 60); eGFR For Non-African Americans > 60 (> 60)
[2017-06-21 08:23] LABS: Platelet Count 24 K/mcL (140-400)
[2017-06-21 09:00] LABS: Platelet Estimate Marked Decrease (Normal)
[2017-06-21] MEDS: Fluconazole 100 MG/50 ML 100 MG/50 ML BAG IVPB SCH (09:33)
[2017-06-21] MEDS ORDERED: Aminoglycoside Consult 1 EACH MC ONE (10:16)
[2017-06-21] MEDS ORDERED: 0.9 % Sodium Chloride 250 ML ONE (10:23)
--- NOTE | 2017-06-21 10:23 | Internal Med Progress Note ---
Date of Encounter: 06/21/17 Time of Encounter: 10:20 - Assessment and plan (1) Neutropenic fever Current Visit: Yes Status: Acute Assessment and plan: Absolute neutrophil count still less than 500. Continue neutropenic precautions. fever spikes are improving and only low-grade. Blood culture prelim negative. Discontinue vancomycin, continue Zosyn. Source of infection unclear. Await both cultures. Contrasted CT scan of the chest abdomen pelvis performed yesterday showed no evidence of occult infection. (2) Tobacco abuse Current Visit: No Status: Acute Assessment and plan: Nicotine patch. (3) Pancytopenia Current Visit: No Status: Chronic Assessment and plan: Patient receiving neupogen. He is also receiving intermittent platelet and blood transfusion. (4) MDS (myelodysplastic syndrome) Current Visit: Yes Status: Acute (5) GI bleeding Current Visit: Yes Status: Acute Assessment and plan: Lower GI bleeding with bright red blood may be related to hemorrhoids in the setting of severe thymocytopenia. Platelet count is 22,000. However because patient is bleeding I will transfused patient platelets. Qualifiers: Qualified Code(s): K92.2 - Gastrointestinal hemorrhage, unspecified - Subjective Interval history: Patient seen and examined. Fever spikes improved. Few episodes of low-grade fever. Patient had small amounts of fresh blood from rectum today. No hematemesis are melena. He had received platelet transfusion as well as 2 units of blood transfusion yesterday. platelet count today's 22,000. Denies any cough, expectoration, diarrhea, urinary symptoms, headache, neck pain or stiffness. - Constitutional Vitals: Temp Pulse Resp BP Pulse Ox 98.6 F 83 15 123/76 98 06/21/17 06:39 06/21/17 06:39 06/21/17 06:39 06/21/17 06:39 06/21/17 06:39 Exam: Gen.: patient is alert oriented times 3 not in distress. Cardiac: normal S1 S2 no additional sounds chest: clear auscultation abdomen: soft nontender nondistended normal bowel sounds. Red Blood in rectal vault Neuro: no focal deficits LE: no swelling Internal Medicine: Result - Labs CBC & Chem 7: 06/21/17 07:47 06/21/17 07:47 Labs: Short CBC 06/21/17 Range/Units 07:47 WBC 0.4 L* (4.3-11.1) K/mcL Hgb 8.6 L D (12.9-16.9) g/dL Hct 24.0 L (37.5-50.1) % Plt Count 24 L* D (140-400) K/mcL Neutrophils # 0.1 L (1.6-8.9) K/mcL BMP 06/21/17 07:47 Sodium 133 L Potassium 3.2 L Chloride 105 Carbon Dioxide 22 L BUN 12 Creatinine 0.68 L Glucose 133 H Calcium 8.1 L - ABG Interpretation ABG results: PT/INR, D-dimer PT 16.5 Seconds (9.4-12.1) H 06/18/17 10:11 - Impressions Impressions Abdomen/Pelvis CT 06/20/17 17:00 IMPRESSION: 1. Small moderate bilateral pleural effusions and associated atelectasis. 2. Re- demonstration of small pulmonary nodule within the anterior aspect of the right lower lobe which appears stable compared with prior exams. Follow-up is recommended on prior CT thorax dated June 07, 2017. 3. No acute intra-abdominal process identified. 4. Scattered sclerotic lesions throughout the visualized osseous structures compatible with given history of multiple myeloma. No pathologic fracture identified. 5. Mild anasarca. 6. Small fluid and fat filled right femoral hernia. D/ / Galindo Knight MD / Galindo Knight MD Interpreting Provider: Galindo Knight MD Chest CT 06/20/17 17:00 IMPRESSION: 1. Small moderate bilateral pleural effusions and associated atelectasis. 2. Re- demonstration of small pulmonary nodule within the anterior aspect of the right lower lobe which appears stable compared with prior exams. Follow-up is recommended on prior CT thorax dated June 07, 2017. 3. No acute intra-abdominal process identified. 4. Scattered sclerotic lesions throughout the visualized osseous structures compatible with given history of multiple myeloma. No pathologic fracture identified. 5. Mild anasarca. 6. Small fluid and fat filled right femoral hernia. D/ / Galindo Knight MD / Galindo Knight MD Interpreting Provider: Galindo Knight MD - VTE Documentation of Mechanical Device: Intermittent pneumatic compression device Consult Discharge Plan - Plan Referrals: Getachew Fraser MD [Primary Care Provider] -
[2017-06-21] MEDS: *HR* OxyCODONE Immed Rel 5 MG TABLET PO PRN (12:52)
[2017-06-21] MEDS: ALPRAZolam 1 MG TABLET PO PRN ×2 (14:40→20:38)
[2017-06-21] MEDS: Pantoprazole 40 MG VIAL IVP SCH (17:11)
[2017-06-21] MEDS ORDERED: Acetaminophen 325 MG TABLET PO PRN (20:02)
[2017-06-21] MEDS: Micafungin 100 MG in 0.9 % Sodium Chloride Mini Bag 100 ML IVPB SCH (22:17)
[2017-06-21] MEDS: Meropenem 1,000 MG in Water for inj. (sterile) 10 ML IVP SCH (23:22)
[2017-06-22] MEDS: ALPRAZolam 1 MG TABLET PO PRN ×2 (00:56→18:25)
[2017-06-22] MEDS: Piperacillin/Tazobactam 3.375 GM/200 ML BAG IVPB SCH ×3 (01:10→18:25)
[2017-06-22] MEDS ORDERED: *HR* LORazepam 2 MG/ML VIAL IVP ONE (01:41)
[2017-06-22 03:30] LABS: Hemoglobin 8.3 g/dL (12.9-16.9)
[2017-06-22 03:31] LABS: Hematocrit 23.7 % (37.5-50.1); Mean Corpuscular Hemoglobin 28.9 pg (28.0-33.3); Mean Corpuscular Volume 82.6 fL (83.0-100.0); Mean Platelet Volume 10.3 fL (9.4-12.4); Red Blood Count 2.87 M/mcL (4.19-5.50); Red Cell Distribution Width 13.1 % (11.5-14.5)
[2017-06-22 04:03] LABS: Platelet Count 19 K/mcL (140-400)
[2017-06-22] MEDS ORDERED: *HR* LORazepam 2 MG/ML VIAL IM ONE (04:52)
[2017-06-22] MEDS: Pantoprazole 40 MG VIAL IVP SCH (06:10)
[2017-06-22 09:13] LABS: CK Total (Ck Isoenzymes) 19 U/L (20-200)
[2017-06-22] MEDS: Meropenem 1,000 MG in Water for inj. (sterile) 10 ML IVP SCH (10:10)
[2017-06-22] MEDS: Fluconazole 100 MG/50 ML 100 MG/50 ML BAG IVPB SCH (10:10)
[2017-06-22] MEDS: Acetaminophen 325 MG TABLET PO PRN (11:24)
[2017-06-22] MEDS: *HR* OxyCODONE Immed Rel 5 MG TABLET PO PRN (11:24)
[2017-06-22] MEDS: Vancomycin 1,250 MG in D5% in Water 250 ML IVPB SCH (12:41)
[2017-06-22] MEDS: Nystatin SUSP 5 ML UD.LIQ PO SCH ×3 (13:50→23:52)
--- NOTE | 2017-06-22 14:59 | Electrocardiograph Report ---
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
--- NOTE | 2017-06-22 15:10 | Internal Med Progress Note ---
Date of Encounter: 06/22/17 Time of Encounter: 10:20 - Assessment and plan (1) Neutropenic fever Current Visit: Yes Status: Acute Assessment and plan: Unclear source / etiology still having fevers cont Zosyn + changed to Micafungin + Resumed Vancomycin today will get LP today IR consulted for LP Also started him on Nystatin liquid PO (2) Acute delirium Current Visit: Yes Status: Acute Assessment and plan: mostly due to toxic encephaloapthy with neutropenic fever.. as well as underline psychiatric problem too cont close monitoring since he still does have fever spikes will consider getting LP for CSF analysis will get CT of head now (3) Thrombocytopenia Current Visit: Yes Status: Acute Assessment and plan: s/p 3 U Platelets.. Heme Onc recommend to cont platelets transfusion if his Platelets <10K today his platelets - 19K (4) Tobacco abuse Current Visit: No Status: Acute Assessment and plan: counseled to quit on nicotine patch. (5) Pancytopenia Current Visit: No Status: Chronic Assessment and plan: Due to MDS Patient receiving neupogen. He is also receiving intermittent platelet and blood transfusion. (6) MDS (myelodysplastic syndrome) Current Visit: Yes Status: Acute Assessment and plan: No new orders (7) Physical deconditioning Current Visit: No Status: Acute Assessment and plan: PT / OT eval - Subjective Interval history: Mr. Lopez is a 61 year old male with known PMH of MDS, who gets frequent blood transfusions, also has h/o depression and anxiety who was sent to our ER from Hem Onc office due to neutropenic fever. Pt did have dysphagia initially, now he feels little better. He does look slightly confused, not sure wether this is his baseline or not. Talked to pt's PCP who recommend to order HIV screen too. - Constitutional Vitals: Temp Pulse Resp BP Pulse Ox 100.5 F H 91 18 131/85 97 06/22/17 11:15 06/22/17 11:15 06/22/17 11:15 06/22/17 11:15 06/22/17 11:15 General appearance: Present: A&O X 2, no acute distress, answers questions appropriately - Head Head exam: Present: atraumatic, normal inspection - Neck Neck exam general surgery: Present: supple - Respiratory Respiratory exam: Present: decreased breath sounds, wheezes (mild). Absent: respiratory distress, rhonchi - Cardiovascular Cardiovascular exam: Present: RRR, +S1, +S2. Absent: systolic murmur, tachycardia - GI/Abdominal GI/Abdominal exam: Present: normal bowel sounds, soft. Absent: rebound, rigid, tenderness - Extremities Exam Extremities exam: Absent: calf tenderness, pedal edema, tenderness - Back Exam Back exam: Absent: CVA tenderness (L), CVA tenderness (R) - Neurological Exam Neurological exam: Present: alert, altered - Psychiatric Psychiatric exam: Present: anxious Internal Medicine: Result - Labs CBC & Chem 7: 06/22/17 03:08 06/21/17 07:47 Labs: Short CBC 06/22/17 Range/Units 03:08 WBC 0.5 L* (4.3-11.1) K/mcL Hgb 8.3 L (12.9-16.9) g/dL Hct 23.7 L (37.5-50.1) % Plt Count 19 L* (140-400) K/mcL Cardiac Enzymes 06/18/17 Range/Units 17:00 CK-MB (CK-2) NOT APPLICABLE (0-4) % - ABG Interpretation ABG results: PT/INR, D-dimer PT 16.5 Seconds (9.4-12.1) H 06/18/17 10:11 - Impressions Impressions Echocardiogram 06/22/17 20:13 Impressions: LVEF 50-55%. Mild left ventricular diastolic dysfunction. Normal right ventricular structure and function. No significant valvular dysfunction. No pulmonary hypertension. Left Ventricular Wall Motion: Rest Echo Findings All wall segments showed normal motion. Findings: Study Quality * Technically adequate exam. ECG Findings * Normal sinus rhythm. Left Ventricle * Normal LV chamber size, wall thickness and function. * Mild left ventricular diastolic dysfunction. * LVEF 50-55%. Right Ventricle * Normal right ventricular structure and function. Left Atrium * Normal left atrial size. Right Atrium * Normal right atrial size. Aortic Valve * No aortic regurgitation. * Trileaflet aortic valve. * No aortic stenosis. Mitral Valve * No mitral stenosis. * Mildly calcified mitral valve leaflets. * Trace mitral regurgitation. Tricuspid Valve * Trace tricuspid regurgitation. * Normal tricuspid valve structure. * Estimated RA pressure is 3 mmHg. * Estimated RVSP is 25 mmHg. * No pulmonary hypertension. Pulmonic Valve * Pulmonic valve is not well visualized. * No pulmonic stenosis. * Trace pulmonic regurgitation. Pulmonary Artery * Pulmonary artery not well visualized. Aorta * Normally sized aortic root. Pericardium * There is no pericardial effusion present. Interatrial Septum * No evidence of PFO by color Doppler. IVC * Normal IVC dimensions and inspiratory collapse. - VTE Documentation of Mechanical Device: Intermittent pneumatic compression device Consult Discharge Plan - Plan Referrals: Getachew Fraser MD [Primary Care Provider] -
[2017-06-22] MEDS: Nicotine 21 MG PATCH.TD24 TD SCH (15:32)
[2017-06-22] MEDS: Micafungin 100 MG in 0.9 % Sodium Chloride Mini Bag 100 ML IVPB SCH (23:55)
[2017-06-23] MEDS: Vancomycin 1,250 MG in D5% in Water 250 ML IVPB SCH ×2 (01:00→17:00)
[2017-06-23] MEDS: Acetaminophen 325 MG TABLET PO PRN (01:53)
[2017-06-23] MEDS: Piperacillin/Tazobactam 3.375 GM/200 ML BAG IVPB SCH ×2 (01:54→11:27)
[2017-06-23 06:00] LABS: Hematocrit 24.6 % (37.5-50.1)
[2017-06-23 06:01] LABS: Hemoglobin 8.6 g/dL (12.9-16.9); Mean Corpuscular Hemoglobin 28.9 pg (28.0-33.3); Mean Corpuscular Volume 82.6 fL (83.0-100.0); Red Blood Count 2.98 M/mcL (4.19-5.50); Red Cell Distribution Width 13.1 % (11.5-14.5); Segmented Neutrophils % 9.7 %
[2017-06-23 06:02] LABS: Lymphocytes # 0.3 K/mcL (0.6-4.6); Lymphocytes % 68.3 %; Monocytes # 0.1 K/mcL (0.0-1.3)
[2017-06-23 06:14] LABS: Platelet Count 13 K/mcL (140-400)
[2017-06-23 06:20] LABS: BUN/Creatinine Ratio 16 (6-26); Blood Urea Nitrogen 10 mg/dL (8-23); Calcium 8.3 mg/dL (8.6-10.3); Carbon Dioxide 23 mEq/L (23-29); Chloride 106 mEq/L (98-107); Glucose 129 mg/dL (70-105); Osmolality,Calculated 283 (280-300); Platelet Estimate Marked Decrease (Normal); Potassium 3.3 mEq/L (3.5-5.1); Sodium 136 mEq/L (136-145); eGFR For African Americans > 60 (> 60); eGFR For Non-African Americans > 60 (> 60)
[2017-06-23] MEDS: Nystatin SUSP 5 ML UD.LIQ PO SCH ×3 (08:48→16:28)
[2017-06-23] MEDS: Nicotine 21 MG PATCH.TD24 TD SCH (08:48)
[2017-06-23] MEDS: *HR* OxyCODONE Immed Rel 5 MG TABLET PO PRN (08:48)
--- NOTE | 2017-06-23 11:47 | Discharge Summary ---
Date of Encounter: 06/23/17 Time of Encounter: 11:38 - Discharge Diagnosis (1) Neutropenic fever Priority: Primary Status: Acute (2) Acute delirium Priority: Primary Status: Acute (3) Thrombocytopenia Priority: Primary Status: Acute (4) Tobacco abuse Priority: Secondary Status: Acute (5) Pancytopenia Priority: Primary Status: Chronic (6) MDS (myelodysplastic syndrome) Priority: Secondary Status: Acute (7) Physical deconditioning Priority: Secondary Status: Acute - Discharge Medications Home Medications: OxyCODONE Immed Rel [Roxicodone 5 MG] 5 mg PO Q8HR PRN #90 tablet 06/07/17 [Rx] Zolpidem [Ambien] 5 mg PO HS PRN #30 tablet 06/07/17 [Rx] Prochlorperazine Maleate [Compazine] 10 mg PO Q8HR 06/14/17 [History] Alprazolam [Xanax] 2 mg PO TID 06/18/17 [History] Citalopram Hydrobromide [Celexa] 40 mg PO DAILY 06/18/17 [History] Allergies/Adverse Reactions: 3 Allergy/AdvReac Type Severity Reaction Status Date / Time No Known Allergies Allergy Verified 06/18/17 09:16 Procedures/tests Complete & Pending: Procedures Performed prior 72 hours Category Date Time Status CT chest w con [CT] Stat Cat Scan 06/20/17 17:[address] head/brain wo con [CT] Stat Cat Scan 06/22/17 15:21 Completed abdominal/pelvis CT with contrast [CT abd pelvis w iv Cat Scan 06/20/17 17:00 Completed and oral] [CT] Stat EV echocardiogram Routine Y 06/22/17 20:13 Completed Date of admission: 06/18/17 10:01 Primary care physician: Getachew Fraser MD Consults: 06/18/17 10:27 Consult to Invasive Line Access Team [CONS] Routine Reason for Consult: infection poor iv access Line Type: Midline 06/18/17 11:39 Consult to Occupational Therapy [CONS] Routine Comment: Evaluate, develop and implement POC Reason for Consult: weakness Consult to Oncology Hematology [CONS] Routine Consulting Provider: Oncology [facility] Reason for Consult: neutropenic fever Call Completed: No Consult to Physical Therapy [CONS] Routine Comment: Evaluate, develop and implement POC Reason for Consult: weakness 06/23/17 08:12 Consult to Infectious Diseases [CONS] Routine Consulting Provider: Infectious Disease [facility] Reason for Consult: Neutropenic fever Call Completed: Yes - Patient Status Disposition: Transfer Other Condition: Fair Overall status at discharge: patient is not back to baseline - Discharge Instructions Follow Up With: Bev Zelaya [employer]AW 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 Lopez is a 61 year old male with known PMH of MDS, who gets frequent blood transfusions, also has h/o depression and anxiety who was sent to our ER from Hem Onc office due to neutropenic fever. pt was admitted in the hospital and started him on septic work up, bood cx - no growth from 06/18 and 06/19, Influenza A & B - negative, Strep Pneumonia and Legionella negative. He was placed on Vancomycin + Zosyn and Diflucan initially. He did c/o dysphagia, initially which improved now. 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 He still severely neutropenic x after 3 doses of neupogen and 4 U platelets as well as 3 U PRBC. He still has fever spikes, with severe neutropenia, we do not have ID services here at this moment, so I contacted [facility] [place] [facility] department and talked to Dr. Jones, who accepted the pt for further higher level of care. So will d/c him to [facility] today whenever they have bed available. His current abx regimen - Zosyn + Vanco + Micafungin + Nystatin solution - Time Spent with Patient Total time spent providing and/or coordinating discharge services: - Constitutional Vitals: Temp Pulse Resp BP Pulse Ox 94.1 F L 77 20 130/80 99 06/23/17 11:33 06/23/17 11:33 06/23/17 11:33 06/23/17 11:33 06/23/17 11:33 General appearance: Present: A&O X 2, no acute distress, answers questions appropriately - Head Head exam: Present: atraumatic, normal inspection - Neck Neck exam general surgery: Present: supple - Respiratory Respiratory exam: Present: decreased breath sounds. Absent: rales, respiratory distress, rhonchi, wheezes - Cardiovascular Cardiovascular exam: Present: RRR, +S1, +S2. Absent: tachycardia - GI/Abdominal GI/Abdominal exam: Present: normal bowel sounds, soft. Absent: tenderness - Extremities Exam Extremities exam: Absent: calf tenderness, pedal edema, tenderness - Back Exam Back exam: Absent: CVA tenderness (L), CVA tenderness (R) - Neurological Exam Neurological exam: Present: alert, oriented X3 - Psychiatric Psychiatric exam: Present: normal affect, normal mood - VTE Documentation of Mechanical Device: Intermittent pneumatic compression device
[2017-06-23] MEDS ORDERED: *HR* OxyCODONE Immed Rel 5 MG TABLET PO PRN (14:24)
[2017-06-23] MEDS ORDERED: 0.9 % Sodium Chloride 250 ML ONE (15:10)
[2017-06-23 16:57] VITALS: BP 118/72
[2017-06-23] MEDS ORDERED: Aminoglycoside Consult 1 EACH MC ONE (18:41)
== END 2017-06-23 18:42 | disposition other institution (70) | DRG 808 ==
LOC: EMEROO 09:13 → 2NENU 10:01
PROVIDERS: ADMIT Hospitalist; ATTEND Hospitalist

== ENCOUNTER 2017-07-08 16:17 | Inpatient (IN) ==
[2017-07-08] MEDS ORDERED: 0.9 % Sodium Chloride 1,000 ML IVC ONE (17:00)
--- NOTE | 2017-07-08 17:44 | Emergency Department Note ---
Disposition Clinical Impression: Physical deconditioning, MDS (myelodysplastic syndrome), Thrombocytopenia, Neutropenic fever, Severe sepsis Disposition: Admitted As Inpatient Condition: Serious Time of Disposition: 17:40 Recheck wound or abnormal lab - General Chief Complaint: ED Recheck/Abnormal Lab/Rx Stated Complaint: Abnormal Labs Time Seen by Provider: 07/08/17 16:33 Source: patient, family Limitations: no limitations Nursing Notes Reviewed: Yes Vital Signs Reviewed: Yes - History of Present Illness HPI Narrative: 61-year-old male history of myelodysplastic syndrome, presents for evaluation for low platelet count. The patient had platelets drawn today that were 3000 the patient states that he was been seen for myelodysplastic syndrome, he recently had a febrile and neutropenic syndrome [place] [facility] he was seen, his oncologist at [facility] is Dr. gomez. Patient denies chest pain or abdominal pain. Please of antibiotics Levaquin to take at home. He also recently had a C. difficile infection. Pt Subjective Complaint: abnormal lab(s) (Plt 3) Initial Visit (ago): hour(s) Symptoms Since Prior Visit: no new symptoms Context: called for abnormal lab result Associated symptoms: none - Related Data Home Medications Medication Instructions Recorded Confirmed Prochlorperazine Maleate 10 mg PO Q8HR 06/14/17 06/18/17 [Compazine] Alprazolam [Xanax] 2 mg PO TID 06/18/17 06/18/17 Citalopram Hydrobromide [Celexa] 40 mg PO DAILY 06/18/17 06/18/17 Previous Rx's Medication Instructions Recorded OxyCODONE Immed Rel [Roxicodone 5 5 mg PO Q8HR PRN #90 tablet 06/07/17 MG] Zolpidem [Ambien] 5 mg PO HS PRN #30 tablet 06/07/17 Allergies Allergy/AdvReac Type Severity Reaction Status Date / Time No Known Allergies Allergy Verified 06/18/17 09:16 All systems ED: reviewed and negative except as stated. Review of Systems: As Per HPI Constitutional: Denies: fever, chills Eyes: Denies: eye pain ENT ED: Denies: ear pain Cardiovascular: Denies: chest pain, palpitations Respiratory: Denies: cough Gastrointestinal: Denies: abdominal pain, nausea Genitourinary: Denies: urgency Musculoskeletal: Denies: back pain Integumentary: Denies: rash Neurological: Denies: headache Psychiatric: Denies: anxiety Past Medical History - Past Medical History Attestation: Yes The following information was validated with the patient. Source: patient Medical history: Reports: cancer, other Surgical history: Reports: orthopedic, other Psychiatric history: Reports: anxiety, depression - Social History Smoking Status: Current every day smoker Smokeless Tobacco Status: No Alcohol use: Reports: none Drug use: Reports: none Physical Exam Constitutional: Tachycardic temperature 99.5 cachectic male. Eyes: PERRLA, sclera anicteric ENT & Mouth: MM dry temporal wasting Neck: normal inspection, neck is supple Resp: CTA bilaterally, no resp distress CV: Tachycardia, no m/g/r GI: normal inspection, soft, no guarding or rigidity Neuro: A&O3, CNII-XII grossly intact, CURRY Skin: Poor skin turgor - General Limitations: no limitations General appearance: alert Course Course Narrative: Cachectic-appearing 61-year-old gentleman who has a history of myelodysplastic syndrome, getting treatment with decitimibe Dr Rdz plan is for platelet transfusion I did speak with the on-call hematology oncologist who recommended irradiated platelet transfusion will give 2 units, I spoke with the blood bank there is only 1 unit available at this time but they will get additional unit from the [facility]. Plan is for admission, patient currently is afebrile, tachycardic we will fluid rehydrate check basic labs and plan for admission - Reevaluation(s) Reevaluation #1: Patient now showing signs of elevated temperature 100.6 lactated 2.40 meets criteria for severe sepsis, given neutropenia pancytopenia concern for neutropenic fever will start on broad-spectrum antibiotics. Call in the hospital was back at this time to let them know of his change in condition. No clear etiology for source, x-rays negative, urinalysis is so far not obtained, a recent C. difficile infection but this is a possibility. Time: 19:12 Reevaluation #2: I spoke with the hospitalist, patient was placed on 2 N. to [place] started on broad-spectrum antibiotics, we will obtain urine with straight cath or buckner if retention at request of hospitalist. - Consultations Consultation #1: Oncology Consulted DR Sandy will see patient in the hospital, recommends transfusion irradiated platelets. Vital Signs Temperature 99.5 F 01/11/18 16:19 Pulse Rate 126 07/08/17 16:19 Respiratory Rate 22 07/08/17 16:19 Blood Pressure 105/81 07/08/17 16:19 O2 Sat by Pulse Oximetry 100 07/08/17 16:19 Temperature 100.3 F H 07/08/17 21:38 Pulse Rate 97 07/08/17 21:38 Respiratory Rate 18 07/08/17 21:38 Blood Pressure 122/79 07/08/17 21:38 O2 Sat by Pulse Oximetry 100 07/08/17 21:38 Oxygen Delivery Oxygen Delivery Room Air Recheck wound or abnormal lab - Medical Records Medical records reviewed: Yes I reviewed the patient's medical records. - Lab Data Lab results reviewed: Yes I reviewed the patient's lab results. Result diagrams: 07/08/17 17:37 Lab Results 07/08/17 07/08/17 07/08/17 Range/Units 17:37 17:37 17:37 Sodium 132 L (136-145) mEq/L Potassium 3.6 (3.5-5.1) mEq/L Chloride 104 (98-107) mEq/L Carbon Dioxide 22 L (23-29) mEq/L BUN 20 (8-23) mg/dL Creatinine 0.74 (0.70-1.30) mg/dL Est GFR ( Amer) > 60 (> 60) Est GFR (Non-Af Amer) > 60 (> 60) BUN/Creatinine Ratio 27 H (6-26) Glucose 147 H (70-105) mg/dL Calculated Osmolality 279 L (280-300) Lactic Acid 2.4 H (0.5-2.2) mmol/L Calcium 8.3 L (8.6-10.3) mg/dL Troponin I < 0.03 (< 0.04) ng/mL - Radiology Data Radiology results reviewed: Yes I reviewed the patient's radiology results. Chest X-Ray 07/08/17 17:01 IMPRESSION: Stable portable study. D/ / Bev Mosley Cha, MD / Bev Mosley Cha, MD Interpreting Provider: Bev Mosley Cha, MD - EKG Data EKG attestation: Yes I reviewed and interpreted this EKG. EKG shows normal: sinus rhythm Rate: normal Rhythm: NSR (97 bpm MN 123 QRS [address] segment depressions in V2 V3 seen on previous EKG no ST segment elevations.) Dalton/QRS: normal Interpretation: no acute changes - Core Measures AMI Core Measures Followed: No Attestation Statement - Attestation Attestation: I, Artem Marquis, examined this patient and my medical decision-making was reviewed with the PRECISION OPTICAL GOODS WORKER/PA/Advanced Practice Nurse/Resident Physician. I agree with the documented findings, disposition and treatment plan as described except to the extent set forth below. 61-year-old male presents emergency Department with concerns of thrombocytopenia. Patient was sent to the emergency department for transfusion after abnormal laboratory results. This has happened to the patient multiple times in the past and he has required multiple transfusions. He has been evaluated at the [facility] as well as by his oncologist. Patient initially denied chest pain, shortness of breath, fever, chills, abdominal pain , palpitations. During his evaluation emergency Department, the patient developed a fever. Patient is neutropenic and has a bandemia. He was started on broad-spectrum antibiotics for possible neutropenic sepsis. Patient will be admitted to the hospital for further care and evaluation
[2017-07-08 17:58] LABS: Calcium 8.3 mg/dL (8.6-10.3); Carbon Dioxide 22 mEq/L (23-29); Chloride 104 mEq/L (98-107); Potassium 3.6 mEq/L (3.5-5.1); Sodium 132 mEq/L (136-145)
[2017-07-08] MEDS ORDERED: *HR* HYDROmorphone (PF) 1 MG/ML SYRINGE IVP ONE (18:00)
[2017-07-08] MEDS ORDERED: Ondansetron 4 MG/2 ML VIAL IVP ONE (18:00)
[2017-07-08 18:04] LABS: BUN/Creatinine Ratio 27 (6-26); Blood Urea Nitrogen 20 mg/dL (8-23); Glucose 147 mg/dL (70-105); Osmolality,Calculated 279 (280-300); eGFR For African Americans > 60 (> 60); eGFR For Non-African Americans > 60 (> 60)
[2017-07-08] MEDS ORDERED: 0.9 % Sodium Chloride 500 ML ONE (18:38)
[2017-07-08] MEDS ORDERED: Piperacillin/Tazobactam 3.375 GM in D5% in Water (Mini-Bag+) 100 ML IVPB ONE (19:10)
[2017-07-08] MEDS ORDERED: Vancomycin 1,000 MG in D5% in Water 250 ML IVPB ONE (19:10)
[2017-07-08] MEDS ORDERED: Levofloxacin 750 MG/150 ML 750 MG/150 ML BAG IVPB ONE (19:10)
[2017-07-08] MEDS ORDERED: MetroNIDAZOLE 500 MG/100 ML 500 MG/100 ML BAG IVPB ONE (19:18)
[2017-07-08] MEDS ORDERED: Vancomycin 750 MG in D5% in Water 250 ML IVPB ONE (19:27)
[2017-07-08] MEDS ORDERED: Piperacillin/Tazobactam 3.375 GM/200 ML BAG IVPB ONE (20:00)
--- NOTE | 2017-07-08 20:31 | Internal Med History&Physical ---
Addendum entered and electronically signed by Tess Chairez 07/08/17 21:43: Original Note: <Tess Chairez - Last Filed: 07/08/17 21:07> Date of Encounter: 07/08/17 Time of Encounter: 20:24 Assessment and Plan (1) Thrombocytopenia Current visit: Yes Status: Acute 61-year-old patient with MDS Dr. Sandy from oncology consulted and will see the patient Patient follows at the [facility] Platelets 3000, oncology recommends transfusion of 2 units of irritated platelets Recheck blood work in a.m. (2) Neutropenic fever Current visit: Yes Status: Acute Patient with elevated temperature, lactate 2.4 Urinalysis pending Recent C. difficile infection but no diarrhea currently X-ray negative Levaquin, Flagyl, Zosyn, and vancomycin administered in the ED Continue vancomycin and add cefepime Neutropenic precautions night monitor Monitor fever curve and lab work (3) Tobacco abuse Current visit: Yes Status: Acute Patient is decreasing the amount he smokes Had a discussion regarding cessation (4) Leg pain Current visit: Yes Status: Acute Patient on chronic Dilaudid for bilateral leg pain and cramping Qualifiers: Laterality: bilateral Qualified Code(s): M79.604 - Pain in right leg; M79.605 - Pain in left leg; M79.605 - Pain in left leg Internal Medicine - H&P: HPI Chief complaint: Thrombocytopenia Admitted From: Home Plans for Post Hospital Care: Home History of present illness: Mr. Lopez is a 61 year old male with a significant history of myelodysplastic syndrome on treatment with decitimbe by Dr Rdz. The patient tells me he was over at the [facility] today getting his routine blood work. He was on his way back home when he got a call to go to the emergency room for treatment of platelet count of 3000. According to the ER note the On-call hematology oncologist recommended transfusion of 2 units irritated platelets. The patient is currently sitting up on the stretcher in no acute distress on room air. He denies any chest pain, shortness of breath, fever, chills, abdominal pain, bleeding, nausea, vomiting, changes in bowel or bladder routine, or headache. The patient was tachycardic on admission and was given a fluid bolus. He was also found to have a slightly elevated temp at 100.6 with a lactate of 2.4 and was started on broad-spectrum antibiotics for concern of neutropenic fever. The patient is currently in the ER. He has no questions regarding the plan of care and is agreeable to admission. He is a full code. He states he has an oral Dilantin at 4 chronic leg and foot pain. He states his feet are always cold. Past Med Surg Social Fam HX - Past Medical History Medical history: other (MDS, neuropathy) Psychiatric history: anxiety, depression - Past Surgical History Surgical History: orthopedic, other - Social History Smoking Status: Current every day smoker Smokeless Tobacco Status: No Alcohol use: none Drug use: none Occupational status: previously employed, disabled Current living situation: Home - Independent Activity Level: Independent ambulation - Family History Grandmother Family Member Ethnicity: Non- Living Status: Hx Family Cancer: Yes (colon cancer) Internal Medicine - H&P: Meds OxyCODONE Immed Rel [Roxicodone 5 MG] 5 mg PO Q8HR PRN #90 tablet 06/07/17 [Rx] Zolpidem [Ambien] 5 mg PO HS PRN #30 tablet 06/07/17 [Rx] Prochlorperazine Maleate [Compazine] 10 mg PO Q8HR 06/14/17 [History] Alprazolam [Xanax] 2 mg PO TID 06/18/17 [History] Citalopram Hydrobromide [Celexa] 40 mg PO DAILY 06/18/17 [History] 3 Allergy/AdvReac Type Severity Reaction Status Date / Time No Known Allergies Allergy Verified 06/18/17 09:16 All Systems PM: A 10-system review of systems was performed and is negative for pertinent findings except as documented above in the HPI. - Constitutional Constitutional: anorexia, weight loss, no chills, no fever(s), no night sweats, no weakness - EENT Eyes: no change in vision, no discharge, no pain, no photophobia Ears: no ear discharge, no ear pain, no tinnitus Nose, mouth and throat: no dysphagia, no nasal discharge, no neck pain, no sore throat - Cardiovascular Cardiovascular ROS IM: no chest pain, no diaphoresis, no dyspnea, no dyspnea on exertion, no edema, no lightheadedness, no palpitations, no syncope - Respiratory Respiratory: no cough, no dyspnea, no dyspnea on exertion, no wheezing, no excessive phlegm production - Gastrointestinal Gastrointestinal: no abdominal pain, no change in bowel habits, no diarrhea, no hematemesis, no hematochezia, no melena, no nausea, no vomiting - Genitourinary Genitourinary ROS male: no difficulty urinating, no dysuria, no flank pain - Musculoskeletal Musculoskeletal ROS IM: no numbness, no tingling - Integumentary Integumentary IM: no rash, no unusual bruising - Neurological Neurological ROS: no confusion, no convulsions, no focal weakness, no numbness, no tingling, no tremor(s) - Hematologic/Lymphatic Hematologic/Lymphatic: easy bruising - Constitutional Vitals: Temp Pulse Resp BP Pulse Ox 99.9 F H 110 18 117/71 100 07/08/17 19:07 07/08/17 19:57 07/08/17 19:57 07/08/17 19:57 07/08/17 19:57 General appearance: Present: A&O X 3, pleasant, no acute distress, underweight, answers questions appropriately - Head Head exam: Present: atraumatic, normocephalic - Eye Eye exam: Present: PERRL, conjuntiva pink, sclera anicteric Pupils: Present: PERRL - Neck Neck exam general surgery: Present: supple, trachea midline. Absent: lymphadenopathy, tenderness, nuchal rigidity - Respiratory Respiratory exam: Present: CTAB. Absent: accessory muscle use, rales, respiratory distress, rhonchi, wheezes - Cardiovascular Cardiovascular exam: Present: RRR, +S1, +S2, tachycardia. Absent: diastolic murmur, gallop, rubs, systolic murmur - GI/Abdominal GI/Abdominal exam: Present: normal bowel sounds, soft, no peritoneal signs. Absent: distended, guarding, tenderness - Extremities Exam Extremities exam: Present: tenderness (bilateral lower extremity tenderness, cramping , coolness and pain, chronic), radial pulses palpable and symmetrical. Absent: calf tenderness, cyanotic, joint swelling, mottling, pedal edema - Neurological Exam Neurological exam: Present: alert, oriented X3, no focal deficits. Absent: motor sensory deficit, pronater drift, facial droop, speech deficit - Skin Skin exam: Present: dry, intact, petechiae (cool and pale) Internal Med - H&P Results - Labs CBC & Chem 7: 07/08/17 17:37 <Zelda Roberts - Last Filed: 07/09/17 03:56> Date of Encounter: 07/08/17 Time of Encounter: 22:06 Internal Medicine - H&P: HPI History of present illness: Mr. Lopez is a 61 year old male All Systems PM: A 10-system review of systems was performed and is negative for pertinent findings except as documented above in the HPI. - Constitutional Vitals: Temp Pulse Resp BP Pulse Ox 103.0 F H 100 19 116/65 96 07/09/17 01:18 07/09/17 03:41 07/09/17 01:18 07/09/17 01:18 07/09/17 01:18 Internal Med - H&P Results - Labs CBC & Chem 7: 07/09/17 02:40 07/09/17 02:40 Labs: Short CBC 07/09/17 Range/Units 02:40 WBC 0.2 L* D (4.3-11.1) K/mcL Hgb 6.4 L D (12.9-16.9) g/dL Hct 18.4 L (37.5-50.1) % Plt Count 27 L* D (140-400) K/mcL BMP 07/09/17 02:40 Sodium 134 L Potassium 3.2 L Chloride 104 Carbon Dioxide 22 L BUN 18 Creatinine 0.75 Glucose 106 H Calcium 8.1 L - Attending Attestation Patient is a 61y/o male with PMH of MDS who was transferred from [facility] for pancytopenia. Patient independently seen and examined at bedside. pt was noted to have PLT count of 3000 and required two units of PLT transfusion. He was further found to has severe sepsis of unknown etiology Pt was empirically started on broad spectrum IV abx and oncology was consulted given neutropenia and fevers Pt noted to have a drop in H&H this morning and is to receive two units PRBC Electrolytes abnormalities corrected Initially noted to have lactic acidosis which has now resolved continue broad spectrum IV abx, IV fluids, tylenol prn fever, f/u blood cultures SCD for DVT ppx Case discussed with JOSE Chairez, I agree with her documented findings, assessment, and plan except as listed above.
[2017-07-08] MEDS ORDERED: Naloxone 0.4 MG/ML INJ IVP PRN (20:47)
[2017-07-08 20:49] LABS: Bilirubin,Urine Small (Negative); Blood,Urine Negative (Negative); Clarity,Urine Cloudy (Clear); Color,Urine Dark Yellow (Yellow); Glucose,Urine (UA) Normal (Normal); Ketones,Urine Negative (Negative); Leukocyte Esterase,Urine Negative (Negative); Nitrite,Urine Negative (Negative); Protein,Urine 100 mg/dL (Neg-Trace); Specific Gravity,Urine > 1.030 (1.010-1.025); Urobilinogen,Urine Normal (Normal)
[2017-07-08 20:51] LABS: Hyaline Casts,Urine Few per lpf (None-Few); Squamous Epithelial Cell,Urine Many per lpf (None-Few); WBC,Urine 0-3 per hpf (0-3)
[2017-07-08 20:59] LABS: Bacteria,Urine Moderate per hpf (None-Few)
[2017-07-08] MEDS: ALPRAZolam 1 MG TABLET PO SCH (21:54)
[2017-07-08] MEDS: Cefepime HCl 1,000 MG in Water for inj. (sterile) 20 ML 10 ML IVP SCH (21:55)
[2017-07-08] MEDS ORDERED: Cefepime HCl 1,000 MG in D5% in Water (Mini-Bag+) 100 ML IVPB SCH (22:00)
[2017-07-08] MEDS: Vancomycin 750 MG in D5% in Water 250 ML IVPB SCH (22:15)
[2017-07-08] MEDS: 0.9 % Sodium Chloride 1,000 ML IVC SCH (22:15)
[2017-07-09] MEDS: Acetaminophen 325 MG TABLET PO PRN ×3 (01:20→18:00)
[2017-07-09 02:52] LABS: Hematocrit 18.4 % (37.5-50.1); Hemoglobin 6.4 g/dL (12.9-16.9); Mean Corpuscular HGB Conc 34.8 g/dL (31.6-35.5); Red Cell Distribution Width 12.3 % (11.5-14.5)
[2017-07-09 02:53] LABS: Mean Corpuscular Hemoglobin 28.4 pg (28.0-33.3); Mean Corpuscular Volume 81.8 fL (83.0-100.0); Mean Platelet Volume 10.7 fL (9.4-12.4); Red Blood Count 2.25 M/mcL (4.19-5.50)
[2017-07-09 02:57] LABS: INR 1.4; Prothrombin Time 15.3 Seconds (9.4-12.1)
[2017-07-09 02:58] LABS: Platelet Count 27 K/mcL (140-400)
[2017-07-09 03:00] LABS: Activated Partial Thrombo Time 26.2 Seconds (26.0-36.0)
[2017-07-09 03:14] LABS: BUN/Creatinine Ratio 24 (6-26); Blood Urea Nitrogen 18 mg/dL (8-23); Calcium 8.1 mg/dL (8.6-10.3); Carbon Dioxide 22 mEq/L (23-29); Chloride 104 mEq/L (98-107); Glucose 106 mg/dL (70-105); Magnesium 1.5 mg/dL (1.6-2.6); Osmolality,Calculated 280 (280-300); Potassium 3.2 mEq/L (3.5-5.1); Sodium 134 mEq/L (136-145); eGFR For African Americans > 60 (> 60); eGFR For Non-African Americans > 60 (> 60)
[2017-07-09] MEDS: Cefepime HCl 1,000 MG in Water for inj. (sterile) 20 ML 10 ML IVP SCH ×3 (05:55→22:02)
[2017-07-09] MEDS: 0.9 % Sodium Chloride 1,000 ML IVC SCH ×3 (05:56→15:00)
[2017-07-09] MEDS: ALPRAZolam 1 MG TABLET PO SCH ×2 (07:58→14:28)
--- NOTE | 2017-07-09 08:54 | Electrocardiograph Report ---
[address] [address] Test Date: 2017-07-08 Pat Name: Flavio Lopez Department: 104 Room: 2N10 Gender: M Processing Technician: EKP : [id number] Requested By: Mauricio Durham Order Number: [id number] Reading MD: Mathieu Alvarado MD Measurements Intervals [place] Rate: 97 P: 68 OK: 123 QRS: 72 QRSD: 94 T: 61 QT: 383 QTc: 437 Interpretive Statements SINUS RHYTHM Electronically Signed On 07-09-2017 8:52:59 EST by Mathieu Alvarado MD
[2017-07-09] MEDS ORDERED: 0.9 % Sodium Chloride 250 ML ONE ×2 (09:09→16:42)
[2017-07-09 09:24] LABS: Acinetobacter baumannii by PCR Not Detected (Not Detect); Candida albicans by PCR Not Detected (Not Detect); Candida glabrata by PCR Not Detected (Not Detect); Candida krusei by PCR Not Detected (Not Detect); Candida parapsilosis by PCR Not Detected (Not Detect); Candida tropicalis by PCR Not Detected (Not Detect); Enterococcus by PCR Not Detected (Not Detect); Escherichia coli by PCR Not Detected (Not Detect); Klebsiella oxytoca by PCR Not Detected (Not Detect); Klebsiella pneumoniae by PCR Not Detected (Not Detect); Pseudomonas aeruginosa by PCR Not Detected (Not Detect); Serratia marcescens by PCR Not Detected (Not Detect); Staphylococcus aureus by PCR Not Detected (Not Detect); Streptococcus agalactiae(B)PCR Not Detected (Not Detect); Streptococcus by PCR ***DETECTED*** (Not Detect); Streptococcus pneumoniae PCR Not Detected (Not Detect); Streptococcus pyogenes (A) PCR Not Detected (Not Detect); blaKPC Carbapenem-Resist Gene Not Detected (Not Detect); mecA Methicillin-Resist Gene Not Detected (Not Detect); vanA/B Vancomycin-Resist Genes Not Detected (Not Detect)
--- NOTE | 2017-07-09 10:01 | Internal Med Progress Note ---
Addendum entered and electronically signed by Silvano Christina DO 07/09/17 13:42: (6) Severe protein-calorie malnutrition Current Visit: Yes Status: Acute Assessment and plan: - Patient had weight loss more than 20 lbs in few weeks since last hospitalization. - Design Consultant on board and recommends Ensure. Appreciate dietary assistance on patient care. Original Note: <Silvano Christina - Last Filed: 07/09/17 13:14> Date of Encounter: 07/09/17 Time of Encounter: 09:30 - Assessment and plan (1) Sepsis Current Visit: Yes Status: Acute Assessment and plan: - 4 SIRS criteria (fever, tachycardia, tachypnea and leukopenia) with lactic acid 2.4 on initial presentation. - Likely secondary to Streptococcus bacteremia (blood culture preliminarily grew Streptococcus species but cannot rule out contamination given it's one out of one set). - Improves as patient's fever, tachycardia and tachypnea resolved and lactic acid normalized (0.6) this morning. - Consider more blood cultures if patient continues to have fever or sign of worsening infection. - Continue hydration with IV fluid. - Continue IV vancomycin and cefepime. Will add Micafungin for fungal coverage. Further de-escalation based on clinical picture and culture result. - Continue close monitoring. Qualifiers: Sepsis type: Streptococcus, other Qualified Code(s): A40.8 - Other streptococcal sepsis (2) Neutropenic fever Current Visit: Yes Status: Acute Assessment and plan: - WBC 0.2 today with fever as high as 103 this morning. - Likely secondary to sepsis from bacteremia in the setting of MDS. - Neutropenic precaution. - Continue IV vancomycin and cefepiem and add micafungin. - Oncology/hematology consulted. Appreciate further evaluation and recommendations. (3) Thrombocytopenia Current Visit: Yes Status: Acute Assessment and plan: - Platelet count 3 in Cancer Center on 07/08/17. - Secondary to MDS and on chemotherapy. - Status post 2 units of platelet transfusion and platelet count increased to 27 this morning. - Patient is getting two more units of platelet transfusion. - Continue to monitor closely. Consider more platelet transfusion if platelet count < 10. (4) Anemia Current Visit: No Status: Acute Assessment and plan: - Hgb 6.4 today, which dropped from 9.3 yesterday. - Likely dilutional in the setting of chronic anemia from MDS and on chemotherapy. - Patient does have significant risk of bleeding given his current thrombocytopenia but no sign of active bleeding is noted at this time. - Two units of pRBC transfusion has been ordered. - Continue to monitor H&H closely. Consider more blood transfusion if Hgb < 7. Qualifiers: Anemia type: bone marrow failure Bone marrow failure anemia type: pancytopenia, antineoplastic chemotherapy-induced Qualified Code(s): D61.810 - Antineoplastic chemotherapy induced pancytopenia; T45.1X5A - Adverse effect of antineoplastic and immunosuppressive drugs, initial encounter; T45.1X5A - Adverse effect of antineoplastic and immunosuppressive drugs, initial encounter (5) Leg pain Current Visit: Yes Status: Acute Assessment and plan: - Bilateral burning/needle like pain radiating down the legs. - Likely neurogenic pain. - Start gabapentin 100 mg PO TID. Qualifiers: Laterality: bilateral Qualified Code(s): M79.604 - Pain in right leg; M79.605 - Pain in left leg; M79.605 - Pain in left leg - Subjective Interval history: Patient was seen and examined this morning. Patient complains of bilateral lower extremity burning/needle-like pain radiating distally. Patient denies fever, chills, chest pain, shortness of breath, abdominal pain, nausea, vomiting , diarrhea, dysuria. Patient denies hemoptysis, hematemesis, hematochezia, melena, hematuria or other sign of active bleeding. - Constitutional Vitals: Temp Pulse Resp BP Pulse Ox 98.4 F 86 16 101/68 98 07/09/17 09:52 07/09/17 09:52 07/09/17 09:52 07/09/17 09:52 07/09/17 09:52 General appearance: Present: A&O X 3, pleasant, no acute distress, underweight, answers questions appropriately - Head Head exam: Present: normal inspection - Eye Eye exam: Present: EOMI, conjuntiva pink, sclera anicteric - Neck Neck exam general surgery: Present: normal inspection, supple, trachea midline - Respiratory Respiratory exam: Present: CTAB. Absent: accessory muscle use - Cardiovascular Cardiovascular exam: Present: RRR, +S1, +S2 - GI/Abdominal GI/Abdominal exam: Present: normal bowel sounds, soft, no peritoneal signs. Absent: tenderness - Extremities Exam Extremities exam: Present: warm. Absent: cyanotic, pedal edema - Neurological Exam Neurological exam: Present: alert. Absent: facial droop, speech deficit - Skin Skin exam: Present: dry, warm Internal Medicine: Result - Labs CBC & Chem 7: 07/09/17 02:40 07/09/17 02:40 Labs: Short CBC 07/09/17 Range/Units 02:40 WBC 0.2 L* D (4.3-11.1) K/mcL Hgb 6.4 L D (12.9-16.9) g/dL Hct 18.4 L (37.5-50.1) % Plt Count 27 L* D (140-400) K/mcL BMP 07/09/17 02:40 Sodium 134 L Potassium 3.2 L Chloride 104 Carbon Dioxide 22 L BUN 18 Creatinine 0.75 Glucose 106 H Calcium 8.1 L - ABG Interpretation ABG results: PT/INR, D-dimer PT 15.3 Seconds (9.4-12.1) H 07/09/17 02:40 - VTE Documentation of Mechanical Device: Intermittent pneumatic compression device Consult Discharge Plan - Plan Referrals: Bev Zelaya UNIT TRUST MANAGER [Advanced Practice Nurse] - 07/15/17 1:45 pm <Faraz Salcido - Last Filed: 07/09/17 15:04> Date of Encounter: 07/09/17 - Constitutional Vitals: Temp Pulse Resp BP Pulse Ox 98.1 F 93 18 101/71 98 07/09/17 11:46 07/09/17 11:46 07/09/17 11:46 07/09/17 11:46 07/09/17 11:46 Internal Medicine: Result - Labs CBC & Chem 7: 07/09/17 02:40 07/09/17 02:40 Labs: Short CBC 07/09/17 Range/Units 02:40 WBC 0.2 L* D (4.3-11.1) K/mcL Hgb 6.4 L D (12.9-16.9) g/dL Hct 18.4 L (37.5-50.1) % Plt Count 27 L* D (140-400) K/mcL BMP 07/09/17 02:40 Sodium 134 L Potassium 3.2 L Chloride 104 Carbon Dioxide 22 L BUN 18 Creatinine 0.75 Glucose 106 H Calcium 8.1 L - ABG Interpretation ABG results: PT/INR, D-dimer PT 15.3 Seconds (9.4-12.1) H 07/09/17 02:40 - Attending Attestation I examined this patient and my medical decision-making was reviewed with the Resident Physician Dr. Christina. I agree with the documented findings, disposition and treatment plan as described except to the extent set forth below. Mr. Lopez is a 61 year old male with known PMH of MDS, who gets frequent blood transfusions, also has h/o depression and anxiety who was sent to our ER from Hem Onc office due to severe thrombocytopenia @ 3K. Pt also happened to have severe neutropenia and developed fever last night with T max 103. He is alert, awake and O x 3now, c/o shivering and generalized body aches Gen: A, , O x3 Chest : No port noticed.. CTA, No wheezing, No crackles Abd: Soft, NT Heart: S1S2+ a/p 1. Neutropenic fever 2. Sepsis 3. Bacteremia - 1/2 positive for G+ve Cocci ( ?? Contamination ) 4. MDS cont empirical broad spec abx - Cefepime + Vanco+ Micafungin repeat blood cx in AM Will consult ID later His neutropenia mostly due to Chemo induced + MDS Heme onc on board 5. Severe thrombocytopenia keep replacing platelets.. goal to keep > 20K
[2017-07-09] MEDS: Vancomycin 750 MG in D5% in Water 250 ML IVPB SCH ×2 (12:05→22:08)
--- NOTE | 2017-07-09 13:21 | Oncology Inp Consult Note ---
Date of Encounter: 07/09/17 Time of Encounter: 12:00 - Data of Consult Requesting Physician: Miguel Angel Palma Primary Care Provider: Getachew Fraser MD - Consult Narrative Reason for consult: MDS/AML febrile neutropenia History of present illness: Mr. Lopez is a 61 year old male with a past medical history of depression and anxiety who is currently on C2 of treatment with decitabine for MDS possible AML PAtient initially presented in 05/14 with lower ext cramps, wkness- routine lab works showed significant pancytopenia He has had a colonoscopy within the last 5 years which was negative for malignancy. He is a current smoker one pack per day for [address] abdomen and pelvis (05/14) showed sclerotic lesions in chest, abdomen, and pelvis along with a 0.5 cm pulmonary nodule in the right lower lung. PSA was nbormal. MRI of thoracolumbar spine (05/14) showed sclerotic lesions in the T10 and T12 vertebral bodies. CT chest 06/13 showed stable 4-5 mm right lower lobe nodule. Mild emphysema. scattered sclerotic osseous lesions He reported about a 5 pound weight loss over the past 6 months Bone marrow bx--05/14--showed hypercellular marrow with fibrosis, increase in blasts RAEB-1 with dysmegakaryopoesis consistent with MDS. Cytogenetics/FISH not obtained as dry aspirate. She was hospitalized at [facility] and transferred to [facility] when he presented with fever and pancytopenia with circulating peripheral blasts. He started on 07/07/17- second cycle of decitabine. Flow cytometry on peripheral blood confirmed 16% blasts d/w [facility] pathology. MDS/AML FISH molecular not reported from [facility] yet She was sent to emergency room yesterday with the low platelet counts of around 3000. He did not have any mucous membrane bleeding at that time. Patient was evaluated in the emergency room hospitalized with a fever also around 103. Blood culture had shown Streptococcus and patient is being hospitalized for neutropenic fever, sepsis. On today's exam patient continues to have lower extremity discomfort he was extensively worked up with CT imaging of the spine in the past. Denies sore throat or chest discomfort/cough. 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 Patient had been consulted [facility] and will undergo a bone marrow aspiration biopsy after this treatment to assess disease status, progression to AML. He has been noncompliant with antifungals, consider antiviral and antifungal prophylaxis. Neutropenia started Neupogen, culture data Streptococcus septicemia, on broad- spectrum antibiotics. She has not had an echocardiogram on 1225 2016. Port needs to be changed if he becomes unstable/persistent bacteremia. Past Med Surg Social Fam HX - Past Medical History Medical history: cancer, other Psychiatric history: anxiety, depression - Past Surgical History Surgical History: orthopedic, other - Social History Smoking Status: Current every day smoker Smokeless Tobacco Status: No Alcohol use: none Drug use: none - Family History Grandmother Family Member Ethnicity: Non- Living Status: Hx Family Cancer: Yes (colon cancer) Medications and Allergies OxyCODONE Immed Rel [Roxicodone 5 MG] 5 mg PO Q8HR PRN #90 tablet 06/07/17 [Rx] Zolpidem [Ambien] 5 mg PO HS PRN #30 tablet 06/07/17 [Rx] Prochlorperazine Maleate [Compazine] 10 mg PO Q8HR 06/14/17 [History] Alprazolam [Xanax] 2 mg PO TID 06/18/17 [History] Citalopram Hydrobromide [Celexa] 40 mg PO DAILY 06/18/17 [History] 3 Allergy/AdvReac Type Severity Reaction Status Date / Time No Known Allergies Allergy Verified 06/18/17 09:16 Review of systems: as in HPI Oncology - Exam - Constitutional Vitals: Temp Pulse Resp BP Pulse Ox 98.1 F 93 18 101/71 98 07/09/17 11:46 07/09/17 11:46 07/09/17 11:46 07/09/17 11:46 07/09/17 11:46 General appearance: average body habitus - Head Head exam: Present: atraumatic, normal inspection - Eye Eye exam: Present: sclera anicteric - ENT ENT exam: Present: mucous membranes moist - Neck Neck exam: Present: full ROM - Respiratory Respiratory exam: Present: CTAB - Cardiovascular Cardiovascular exam: Present: +S1, +S2 - GI/Abdominal GI/Abdominal exam: Present: normal bowel sounds, soft - Extremities Exam Extremities exam: Present: normal inspection - Back Exam Additional comments: not performed - Neurological Exam Neurological exam: Present: alert, CN II-XII intact, oriented X3 - Psychiatric Psychiatric exam: Present: anxious - Skin Skin exam: Present: warm Oncology - Results Labs: Short CBC 07/09/17 Range/Units 02:40 WBC 0.2 L* D (4.3-11.1) K/mcL Hgb 6.4 L D (12.9-16.9) g/dL Hct 18.4 L (37.5-50.1) % Plt Count 27 L* D (140-400) K/mcL BMP 07/09/17 02:40 Sodium 134 L Potassium 3.2 L Chloride 104 Carbon Dioxide 22 L BUN 18 Creatinine 0.75 Glucose 106 H Calcium 8.1 L Consult Discharge Plan - Plan Referrals: Bev Zelaya CNP [Advanced Practice Nurse] - 07/15/17 1:45 pm
[2017-07-09] MEDS: *HR* OxyCODONE Immed Rel 5 MG TABLET PO PRN (13:30)
[2017-07-09] MEDS: Micafungin 100 MG in 0.9 % Sodium Chloride Mini Bag 100 ML IVPB SCH (13:31)
[2017-07-09] MEDS: Gabapentin 100 MG CAPSULE PO SCH ×2 (14:28→22:02)
[2017-07-09 15:09] LABS: Magnesium 1.8 mg/dL (1.6-2.6); Potassium 3.9 mEq/L (3.5-5.1)
[2017-07-09] MEDS ORDERED: Vancomycin 750 MG in D5% in Water 250 ML IVPB SCH (16:00)
[2017-07-09 23:24] LABS: Hematocrit 27.3 % (37.5-50.1); Hemoglobin 9.3 g/dL (12.9-16.9); Lymphocytes # 0.2 K/mcL (0.6-4.6); Mean Corpuscular HGB Conc 34.1 g/dL (31.6-35.5); Mean Corpuscular Hemoglobin 28.3 pg (28.0-33.3); Mean Platelet Volume 11.6 fL (9.4-12.4); Red Blood Count 3.29 M/mcL (4.19-5.50); Red Cell Distribution Width 12.7 % (11.5-14.5)
[2017-07-09 23:32] LABS: Platelet Count 20 K/mcL (140-400)
[2017-07-09 23:48] LABS: Reactive Lymphocytes Present (Not Present)
[2017-07-09 23:49] LABS: Platelet Estimate Marked Decrease (Normal)
[2017-07-10] MEDS: 0.9 % Sodium Chloride 1,000 ML IVC SCH ×3 (01:31→23:59)
[2017-07-10 03:51] LABS: Hemoglobin 9.8 g/dL (12.9-16.9)
[2017-07-10 03:53] LABS: Lymphocytes # 0.2 K/mcL (0.6-4.6); Mean Corpuscular HGB Conc 33.8 g/dL (31.6-35.5); Mean Corpuscular Hemoglobin 28.1 pg (28.0-33.3); Mean Corpuscular Volume 83.1 fL (83.0-100.0); Mean Platelet Volume 12.3 fL (9.4-12.4); Monocytes # 0.1 K/mcL (0.0-1.3); Red Blood Count 3.49 M/mcL (4.19-5.50); Red Cell Distribution Width 12.8 % (11.5-14.5)
[2017-07-10 04:07] LABS: BUN/Creatinine Ratio 24 (6-26); Blood Urea Nitrogen 17 mg/dL (8-23); Calcium 7.6 mg/dL (8.6-10.3); Carbon Dioxide 23 mEq/L (23-29); Chloride 108 mEq/L (98-107); Glucose 110 mg/dL (70-105); Osmolality,Calculated 280 (280-300); Potassium 3.7 mEq/L (3.5-5.1); Sodium 134 mEq/L (136-145); eGFR For African Americans > 60 (> 60); eGFR For Non-African Americans > 60 (> 60)
[2017-07-10 04:14] LABS: Platelet Count 24 K/mcL (140-400)
[2017-07-10 04:15] LABS: Platelet Estimate Marked Decrease (Normal)
[2017-07-10] MEDS: Cefepime HCl 1,000 MG in Water for inj. (sterile) 20 ML 10 ML IVP SCH ×3 (06:30→20:33)
[2017-07-10] MEDS: Gabapentin 100 MG CAPSULE PO SCH ×3 (08:36→20:34)
[2017-07-10] MEDS: *HR* OxyCODONE Immed Rel 5 MG TABLET PO PRN ×2 (08:36→17:36)
[2017-07-10] MEDS: Micafungin 100 MG in 0.9 % Sodium Chloride Mini Bag 100 ML IVPB SCH (08:37)
[2017-07-10] MEDS: Vancomycin 1,000 MG in D5% in Water 250 ML IVPB SCH (11:32)
[2017-07-10] MEDS ORDERED: 0.9 % Sodium Chloride Mini Bag 100 ML ONE (12:53)
[2017-07-10] MEDS ORDERED: Water for inj. (sterile) 20 ML IV ONE (12:58)
[2017-07-10] MEDS: ALPRAZolam 1 MG TABLET PO PRN (13:02)
[2017-07-10] MEDS: Acetaminophen 325 MG TABLET PO PRN (20:36)
[2017-07-11] MEDS: Vancomycin 1,000 MG in D5% in Water 250 ML IVPB SCH ×3 (00:36→23:33)
[2017-07-11] MEDS: *HR* OxyCODONE Immed Rel 5 MG TABLET PO PRN ×4 (03:50→20:36)
[2017-07-11] MEDS: Cefepime HCl 1,000 MG in Water for inj. (sterile) 20 ML 10 ML IVP SCH ×3 (05:36→20:35)
[2017-07-11] MEDS: Gabapentin 100 MG CAPSULE PO SCH ×3 (09:07→20:36)
[2017-07-11] MEDS: Micafungin 100 MG in 0.9 % Sodium Chloride Mini Bag 100 ML IVPB SCH (09:07)
[2017-07-11 09:23] LABS: Hemoglobin 8.8 g/dL (12.9-16.9); Lymphocytes # 0.2 K/mcL (0.6-4.6); Lymphocytes % 83.3 %; Mean Corpuscular Hemoglobin 28.7 pg (28.0-33.3); Monocytes % 16.7 %; Red Blood Count 3.07 M/mcL (4.19-5.50)
[2017-07-11 09:24] LABS: Hematocrit 25.2 % (37.5-50.1); Mean Corpuscular HGB Conc 34.9 g/dL (31.6-35.5); Mean Corpuscular Volume 82.1 fL (83.0-100.0); Mean Platelet Volume 12.3 fL (9.4-12.4); Red Cell Distribution Width 12.6 % (11.5-14.5)
[2017-07-11 09:40] LABS: Platelet Count 13 K/mcL (140-400)
[2017-07-11 09:43] LABS: Alanine Aminotransferase 20 Units/L (7-52); Albumin 2.1 g/dL (3.5-5.7); Albumin/Globulin Ratio 0.7 (1.1-2.2); Alkaline Phosphatase 30 Units/L (34-104); Aspartate Amino Transferase 30 Units/L (13-39); BUN/Creatinine Ratio 24 (6-26); Bilirubin,Total 0.4 mg/dL (0.3-1.0); Blood Urea Nitrogen 13 mg/dL (8-23); Calcium 7.5 mg/dL (8.6-10.3); Carbon Dioxide 21 mEq/L (23-29); Chloride 108 mEq/L (98-107); Glucose 148 mg/dL (70-105); Osmolality,Calculated 281 (280-300); Potassium 3.4 mEq/L (3.5-5.1); Sodium 134 mEq/L (136-145); Total Protein 5.1 g/dL (6.4-8.9); eGFR For African Americans > 60 (> 60); eGFR For Non-African Americans > 60 (> 60)
[2017-07-11] MEDS ORDERED: 0.9 % Sodium Chloride 250 ML ONE ×2 (10:40→15:00)
[2017-07-11] MEDS: 0.9 % Sodium Chloride 1,000 ML IVC SCH (11:10)
[2017-07-11] MEDS ORDERED: *HR* Morphine 2 MG/ML SYRINGE IVP PRN (14:11)
--- NOTE | 2017-07-11 14:16 | Internal Med Progress Note ---
Date of Encounter: 07/11/17 Time of Encounter: 10:00 - Assessment and plan (1) Sepsis Current Visit: Yes Status: Acute Assessment and plan: Did meet Sepsis criteria - fever, tachycardia. leukopenia and lactic acid 2.4 on initial presentation Still having fever spikes T max 101 last night.. So far today no fever spikes Bblood culture preliminarily grew Streptococcus species 1/2 sets - mostly contaminated repeated blood cx so far no growth d/c IVF Continue IV vancomycin and cefepime Cont anti fungal - Micafungin for fungal coverage Qualifiers: Sepsis type: Streptococcus, other Qualified Code(s): A40.8 - Other streptococcal sepsis (2) Neutropenic fever Current Visit: Yes Status: Acute Assessment and plan: ANC- still 0 Cont Neupogen daily Heme Onc on board His Neutropenia - mostly due to Chemo induced for MDS Neutropenic precaution. Continue IV vancomycin, cefepiem and micafungin. (3) Tobacco abuse Current Visit: Yes Status: Acute Assessment and plan: counseled to quit on nicotine patch (4) Anxiety Current Visit: No Status: Acute (5) Pancytopenia Current Visit: Yes Status: Chronic (6) MDS (myelodysplastic syndrome) Current Visit: Yes Status: Acute Assessment and plan: Transfuse blood products PRN cont close monitoring Platelets today came down t 13K so will transfuse 2 U Platelets (7) Physical deconditioning Current Visit: Yes Status: Acute Assessment and plan: PT / OT eval (8) DVT prophylaxis Current Visit: Yes Status: Acute Assessment and plan: SCD's high risk for bleed - Subjective Interval history: Mr. Lopez is a 61 year old male with known PMH of MDS, who gets frequent blood transfusions, also has h/o depression and anxiety who was sent to our ER from Hem Onc office due to severe thrombocytopenia @ 3K. Pt also happened to have severe neutropenia and developed fever. He is more alert, awake and O x 3.. Denied any more shivering. Tolerating PO intake OK. However still having fever spikes. - Constitutional Vitals: Temp Pulse Resp BP Pulse Ox 98.8 F 90 16 129/78 95 07/11/17 14:02 07/11/17 14:02 07/11/17 14:02 07/11/17 14:02 07/11/17 14:02 General appearance: Present: A&O X 3, pleasant, no acute distress, underweight, answers questions appropriately - Head Head exam: Present: atraumatic, normal inspection - Neck Neck exam general surgery: Present: supple - Respiratory Respiratory exam: Present: decreased breath sounds, wheezes (mild). Absent: rales, respiratory distress, rhonchi - Cardiovascular Cardiovascular exam: Present: RRR, +S1, +S2. Absent: tachycardia - GI/Abdominal GI/Abdominal exam: Present: normal bowel sounds, soft. Absent: rebound, rigid, tenderness - Extremities Exam Extremities exam: Absent: calf tenderness, pedal edema, tenderness - Back Exam Back exam: Absent: CVA tenderness (L), CVA tenderness (R) - Psychiatric Psychiatric exam: Present: normal affect, normal mood Internal Medicine: Result - Labs CBC & Chem 7: 07/11/17 09:17 07/11/17 09:17 Labs: Short CBC 07/11/17 Range/Units 09:17 WBC 0.2 L* (4.3-11.1) K/mcL Hgb 8.8 L (12.9-16.9) g/dL Hct 25.2 L (37.5-50.1) % Plt Count 13 L* (140-400) K/mcL BMP 07/11/17 09:17 Sodium 134 L Potassium 3.4 L Chloride 108 H Carbon Dioxide 21 L BUN 13 Creatinine 0.55 L Glucose 148 H Calcium 7.5 L Liver Function 07/11/17 Range/Units 09:17 Total Bilirubin 0.4 (0.3-1.0) mg/dL AST 30 (13-39) Units/L ALT 20 (7-52) Units/L Alkaline Phosphatase 30 L (34-104) Units/L Albumin 2.1 L (3.5-5.7) g/dL - ABG Interpretation ABG results: PT/INR, D-dimer PT 15.3 Seconds (9.4-12.1) H 07/09/17 02:40 - VTE Documentation of Mechanical Device: Intermittent pneumatic compression device Consult Discharge Plan - Plan Referrals: Bev Zelaya CNP [Advanced Practice Nurse] - 07/15/17 1:45 pm
[2017-07-11] MEDS: ALPRAZolam 1 MG TABLET PO PRN (17:49)
[2017-07-11] MEDS ORDERED: Aminoglycoside Consult 1 EACH MC ONE (18:19)
[2017-07-12] MEDS: *HR* OxyCODONE Immed Rel 5 MG TABLET PO PRN ×2 (05:00→17:44)
[2017-07-12] MEDS: Cefepime HCl 1,000 MG in Water for inj. (sterile) 20 ML 10 ML IVP SCH ×3 (05:01→21:29)
[2017-07-12] MEDS: Gabapentin 100 MG CAPSULE PO SCH ×3 (07:50→21:29)
[2017-07-12] MEDS: Ampicillin 2 GM in 0.9 % Sodium Chloride Mini Bag 100 ML IVPB SCH ×2 (07:57→11:22)
[2017-07-12] MEDS: Micafungin 100 MG in 0.9 % Sodium Chloride Mini Bag 100 ML IVPB SCH (07:58)
[2017-07-12] MEDS ORDERED: Vancomycin 750 MG in D5% in Water 250 ML IVPB SCH (08:00)
--- NOTE | 2017-07-12 11:31 | Infectious Disease Consult ---
Date of Encounter: 07/12/17 Time of Encounter: 11:31 Assessment and Plan (1) Streptococcal bacteremia Status: Acute Assessment and plan: group G strep 1/2 sets on 07/08/17 repeat cultures no growth likely source, GI kristian pansensitive continue cefepime (to cover strep and to cover neutropenic fever) monitor labs and for drug toxicity (2) MDS (myelodysplastic syndrome) Status: Acute Assessment and plan: Recently diagnosed, bone marrow bx--05/14--s howed hypercellular marrow with fibrosis, increase in blasts RAEB-1 with dysmegakaryopoesis consistent with MDS, Refractory anemia with excess blasts type I*. (3) Neutropenic fever Status: Acute Assessment and plan: no perirectal abscess ANC 0 poor prognosis continue cefepime and micafungin d/c vanc d/c ampicillin d/w heme/onc adding antiviral agent - awaiting their recommendations (4) Physical deconditioning Status: Acute (5) Severe sepsis Status: Acute Assessment and plan: had 3 SIRS criteria plus lactic acidosis (6) Pancytopenia Status: Chronic Infectious Disease HPI - Data of Consult Patient: new to practice Consult date: 07/12/17 Requesting Physician: Miguel Angel Palma Primary Care Provider: Getachew Fraser MD - Consult Narrative Reason for consult: Neutropenic fever History of present illness: Mr. Lopez is a 61 year old male Patient is a 61-year-old gentleman with myelodysplastic syndrome admitted to [facility] on 07/08/17 with thrombocytopenia, we are consulted on 07/12/2017 with neutropenic fever. Briefly patient is 7-year-old gentleman with myelodysplastic syndrome on treatment with Decitimbe by hematology and oncology was called home and asked to go to the emergency department after having routine blood work which revealed dilated common of 3000 with thrombocytopenia. Patient apparently was asymptomatic. Patient denied any headache, fevers or chills, night sweats, chest pain or shortness of breath, cough, abdominal pain, nausea or vomiting, diarrhea, bleeding, bruising, urinary symptoms, upper respiratory symptoms. Since admission, patient has been febrile with a MAXIMUM TEMPERATURE of 103 Fahrenheit. Patient was also tachycardic with a heart rate in the 120s. Patient was also pancytopenic with a WBC of 0.2, ANC of 0 and platelets of 20,000. Patient also had lactic acidosis of 2.4. A urinalysis was obtained which was negative for nitrites, leukocyte esterase but was contaminated with many epithelial cells and moderate bacteria. A blood culture was obtained on 07/08/17 and the PCR picked up Streptococcus species that was not group a strep or group B strep or strep pneumoniae. Cultures were positive for 1 out of 2 sets group G Streptococcus that was pansensitive. Patient was initially started on vancomycin , cefepime. He also did get 1 dose of Zosyn, Levaquin and Flagyl. Currently patient is on ampicillin, cefepime and micafungin. We were asked to evaluate the patient and make further recommendations. Currently patient is laying in bed. Appears weak and tired. Hematology and oncology nurse practitioner at bedside. Review of systems the patient is negative for any headache, URI symptoms, sore throat, dysphagia, chest pain or shortness of breath. Patient also denies any nausea or vomiting diarrhea or constipation. Patient denies any urinary symptoms denies any rash denies any joint pain or back pain. 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 Pancytopenia ANC 0 Has received neupogen Continue cefepime Continue micafungin (cant take diflucan due to drug drug interaction No need for ampicillin at this time No need for vancomycin at this time (since no signs of MRSA) If fever persist, consider broadening the antibiotics coverage monitor labs and for drug toxicity d/w heme/onc if they recommend antiviral meds for the chemo and she said every provider does it differently and she'd look into it patient supposed to be transferred north to [facility] but at this time he's refusing CC: Miguel Angel Palma Past Med Surg Social Fam HX - Past Medical History Medical history: cancer, other Psychiatric history: anxiety, depression - Past Surgical History Surgical History: orthopedic, other - Social History Smoking Status: Current every day smoker Smokeless Tobacco Status: No Alcohol use: none Drug use: none - Family History Grandmother Family Member Ethnicity: Non- Living Status: Hx Family Cancer: Yes (colon cancer) Infectious Disease-CN:Meds OxyCODONE Immed Rel [Roxicodone 5 MG] 5 mg PO Q8HR PRN #90 tablet 06/07/17 [Rx] Zolpidem [Ambien] 5 mg PO HS PRN #30 tablet 06/07/17 [Rx] Prochlorperazine Maleate [Compazine] 10 mg PO Q8HR 06/14/17 [History] Alprazolam [Xanax] 2 mg PO TID 06/18/17 [History] Citalopram Hydrobromide [Celexa] 40 mg PO DAILY 06/18/17 [History] 3 Allergy/AdvReac Type Severity Reaction Status Date / Time No Known Allergies Allergy Verified 06/18/17 09:16 Review of systems: 10 point review of systems done, negative other for what is mentioned in history of present illness. Exam - Constitutional Vitals: Temp Pulse Resp BP Pulse Ox 99.0 F 87 18 126/84 95 07/12/17 07:19 07/12/17 07:19 07/12/17 07:19 07/12/17 07:19 07/12/17 07:19 General appearance: febrile, cooperative, disheveled - Head Head exam: Present: atraumatic, normocephalic - Eye Eye exam: Present: EOMI, PERRL, sclera anicteric - ENT ENT exam: Present: mucous membranes dry Additional comments: No oral lesions noted - Neck Neck exam: Present: full ROM. Absent: lymphadenopathy, meningismus - Respiratory Respiratory exam: Present: CTAB. Absent: rhonchi, wheezes - Cardiovascular Cardiovascular exam: Present: RRR, +S1, +S2 Additional comments: No murmur appreciated - GI/Abdominal GI/Abdominal exam: Present: normal bowel sounds, soft. Absent: mass, rigid, tenderness - Rectal Additional comments: Patient has some non-inflamed hemorrhoids. No perirectal abscess noted - Extremities Exam Extremities exam: Present: full ROM, normal inspection. Absent: pedal edema - Back Exam Back exam: Absent: CVA tenderness (L), CVA tenderness (R), vertebral tenderness - Neurological Exam Neurological exam: Present: alert, oriented X3. Absent: speech deficit - Psychiatric Psychiatric exam: Present: anxious, depressed. Absent: agitated - Skin Skin exam: Present: normal color. Absent: rash Infectious Disease CN: Results - Labs CBC & Chem 7: 07/13/17 08:57 07/13/17 08:57 Cultures: Cultures 07/11/17 07:11 Blood Culture - Preliminary Peripheral Venipuncture No growth. 07/11/17 07:11 Blood Culture - Preliminary Peripheral Venipuncture No growth. 07/10/17 03:19 Blood Culture - Preliminary Peripheral Venipuncture No growth. 07/10/17 03:19 Blood Culture - Preliminary Peripheral Venipuncture No growth. - VTE Documentation of Mechanical Device: Graduated compression elastic hosiery Consult Discharge Plan - Plan Additional Instructions: Transferred to [facility] by ambulance for further specialty treatment. Accepting physician is Dr. Waleska Grimes. Referrals: Bev Zelaya DATA CONVERSION ANALYST [Advanced Practice Nurse] - 07/15/17 1:45 pm
--- NOTE | 2017-07-12 13:38 | Oncology Inp Progress Note ---
<Sanna Desai L - Last Filed: 07/12/17 16:39> Date of Encounter: 07/12/17 Time of Encounter: 11:00 (1) MDS (myelodysplastic syndrome) Current Visit: Yes Status: Acute Assessment and plan: 1. MDS. 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 Second cycle of decitabine on 07/07/17. Presented to emergency room on 07/08/17 with the low platelet counts of around 3000, no bleeding reported at this time. Blood culture had shown Streptococcus and patient is being hospitalized for neutropenic fever, sepsis. Streptococcus septicemia, on Micafungin and cefepime. Port may need to be changed if he becomes unstable/persistent bacteremia. Infectious disease following, appreciate recommendation. He does not receive prophylactic antiviral/antifungal therapy with this regimen at this time. Flow cytometry on peripheral blood confirmed 16% blasts Dr. Rdz d/w [facility] pathology. Dr. Rdz recommended transfer to [facility] and arranged consultation with Dr. Allison for concern for disease progression and need for bone marrow aspiration biopsy to assess potential progression to AML. Discussed concern for progression and plan for transfer to [facility] however patient is refusing at this time, patient wishes to continue to stay here. He understands that his treatment will remain supportive at this time and that consultation with [facility] for his progression is the recommendation. Will continue to manage supportively and arrange follow up with [facility]/Dr. Rdz on outpatient basis per patients request. Transfusion to keep hgb >7 and platelets >10. Currently on Neupogen for neutropenia, may continue at this time. He has multiple financial and transportation concerns, may benefit from financial counselor/sw discussions or can be done on outpatient basis once he is feeling better. Please refer to Dr. Lorenzo's attestation below for further details Oncology: Subj Interval history: Mr. Lopez reports generalized fatigue and malaise today. He continues to experience BLE pain. He denies cough, SOB, chest pain, abdominal pain, nausea, vomiting or diarrhea. Patient also denies any s/s of bleeding including bleeding from gums, epistaxis, hematochezia, hematuria or hematemesis. - Constitutional Vitals: Vital Signs Temp Pulse Resp BP Pulse Ox 07/12/17 11:45 99.3 F 79 18 108/74 96 07/12/17 07:19 99.0 F 87 18 126/84 95 07/12/17 03:34 99.5 F 101 17 104/78 94 07/11/17 23:00 100.7 F H 86 16 124/80 94 07/11/17 20:00 93 07/11/17 19:27 100.6 F H 90 16 134/84 95 07/11/17 19:00 93 07/11/17 15:38 98.9 F 88 16 132/88 95 07/11/17 15:23 100.8 F H 88 18 126/79 95 07/11/17 14:02 98.8 F 90 16 129/78 95 Intake and Output 07/11/17 07/12/17 07/12/17 23:59 07:59 15:59 Intake Total 496 / 496 320 / 320 Output Total 1450 / 1450 725 / 725 340 / 340 Balance -1440 / -1440 -229 / -229 -20 / -20 Intake: IV Fluids 260 / 260 200 / 200 Maxipime 1,000 MG In Water for inj. (sterile) 10 ML @ 150 mls/ hr IVP Q8H [facility] Rx#:[id number] Ampicillin 2 GM In 0.9 % Sodium 100 / 100 Chloride (Mini-Bag +) 100 ML @ 200 mls/hr IVPB Q4HR [facility] Rx#: [id number] Mycamine 100 MG In 0.9 % Sodium 100 / 100 Chloride (Mini-Bag +) 100 ML @ 100 mls/hr IVPB DAILY [facility] Rx#: [id number] Vancocin 1,000 MG In Dextrose 5 250 / 250 % 250 ML @ 250 mls/hr IVPB Q12H [facility] Rx#:[id number] Oral 120 / 120 Blood Product 236 / 236 Platelet Pheresis Lp Irr 2nd 236 / 236 Unit [id number] Output: Urine 1450 / 1450 725 / 725 340 / 340 Other: Meal Breakfast Percent of Meal Consumed 80% Stool Size Small Stool Consistency loose Stool Characteristics Normal for Patient Stool Color Yellow # Voids 1 # Bowel Movements 1 Weight 55.8 kg Patient Weight 07/12/17 23:59 Weight 55.8 kg General appearance: cooperative, no acute distress - Head Head exam: Present: atraumatic - Respiratory Respiratory exam: Present: decreased breath sounds, CTAB - Cardiovascular Cardiovascular exam: Present: RRR, +S1, +S2 - GI/Abdominal GI/Abdominal exam: Present: normal bowel sounds, soft. Absent: guarding, tenderness - Extremities Exam Extremities exam: Absent: pedal edema, tenderness - Expanded Lower Extremity Exam Lower leg exam: Absent: swelling - Neurological Exam Neurological exam: Present: alert, oriented X3, strengths equal and symetr throughout. Absent: no focal deficits - Psychiatric Psychiatric exam: Present: normal affect, normal mood - Skin Skin exam: Present: pallor, warm Oncology: Obj Data - Labs CBC & Chem 7: 07/11/17 09:17 07/11/17 09:17 Labs: Laboratory Results - last 24 hr 07/09/17 07/11/17 06:20 22:56 Vancomycin Trough 10.0 Blood Type O POSITIVE Antibody Screen NEGATIVE Crossmatch See Detail - ABG Interpretation ABG results: PT/INR, D-dimer PT 15.3 Seconds (9.4-12.1) H 07/09/17 02:40 Consult Discharge Plan - Plan Referrals: Bev Zelaya, AIRCONDITIONING PLANT OPERATOR [Advanced Practice Nurse] - 07/15/17 1:45 pm <Ganesh Lorenzo - Last Filed: 07/12/17 19:59> Date of Encounter: 07/12/17 - Constitutional Vitals: Vital Signs Temp Pulse Resp BP Pulse Ox 07/12/17 17:40 97.9 F 81 18 119/80 07/12/17 17:20 98.0 F 87 18 114/77 07/12/17 16:35 98.3 F 83 18 113/75 95 07/12/17 11:45 99.3 F 79 18 108/74 96 07/12/17 07:19 99.0 F 87 18 126/84 95 07/12/17 03:34 99.5 F 101 17 104/78 94 07/11/17 23:00 100.7 F H 86 16 124/80 94 07/11/17 20:00 93 Intake and Output 07/12/17 07/12/17 07/13/17 08:59 16:59 00:59 Intake Total 110 / 110 230 / 230 0 / 0 Output Total 325 / 325 665 / 665 Balance -215 / -215 -435 / -435 0 / 0 Intake: IV Fluids 110 / 110 110 / 110 Maxipime 1,000 MG In Water for inj. (sterile) 10 ML @ 150 mls/ hr IVP Q8H [facility] Rx#:[id number] Ampicillin 2 GM In 0.9 % Sodium 100 / 100 Chloride (Mini-Bag +) 100 ML @ 200 mls/hr IVPB Q4HR [facility] Rx#: [id number] Mycamine 100 MG In 0.9 % Sodium 100 / 100 Chloride (Mini-Bag +) 100 ML @ 100 mls/hr IVPB DAILY [facility] Rx#: [id number] Oral 120 / 120 Blood Product 0 / 0 Platelet Pheresis Lp Irr 2nd 0 / 0 Unit [id number] Output: Urine 325 / 325 665 / 665 Other: Meal Lunch Percent of Meal Consumed 75% Stool Size Moderate Stool Consistency loose # Voids 1 Weight 55.8 kg Patient Weight 07/13/17 00:59 Weight 55.8 kg Oncology: Obj Data - Labs CBC & Chem 7: 07/11/17 09:17 07/11/17 09:17 Labs: Laboratory Results - last 24 hr 07/09/17 07/11/17 07/12/17 06:20 22:56 14:56 Vancomycin Trough 10.0 Blood Type O POSITIVE Antibody Screen NEGATIVE Crossmatch See Detail - ABG Interpretation ABG results: PT/INR, D-dimer PT 15.3 Seconds (9.4-12.1) H 07/09/17 02:40 - Attending Attestation I examined this patient and my medical decision-making was reviewed with the Advanced Practice Nurse. I agree with the documented findings, disposition and treatment plan as described except to the extent set forth below. Mr. Lopez has been admitted with neutropenic fever and has been found to have Group G Strep by culture 07/08/17. Subsequent cultures negative, and he is feeling better. Continue with antimicrobial coverage per ID. No need for fungal/viral coverage at this juncture, but will be considered if prolonged episodes of neutropenia. Again reviewed potential transfer to [facility]. He is deferring this for now; in addition neupogen will skew BM biopsy results currently, so would not pursue at this juncture.
--- NOTE | 2017-07-12 14:36 | Discharge Summary ---
Date of Encounter: 07/12/17 Time of Encounter: 10:00 - Discharge Medications Home Medications: OxyCODONE Immed Rel [Roxicodone 5 MG] 5 mg PO Q8HR PRN #90 tablet 06/07/17 [Rx] Zolpidem [Ambien] 5 mg PO HS PRN #30 tablet 06/07/17 [Rx] Prochlorperazine Maleate [Compazine] 10 mg PO Q8HR 06/14/17 [History] Alprazolam [Xanax] 2 mg PO TID 06/18/17 [History] Citalopram Hydrobromide [Celexa] 40 mg PO DAILY 06/18/17 [History] Allergies/Adverse Reactions: 3 Allergy/AdvReac Type Severity Reaction Status Date / Time No Known Allergies Allergy Verified 06/18/17 09:16 Date of admission: 07/08/17 20:47 Primary care physician: Getachew Fraser MD Consults: 07/08/17 21:17 Consult to Nutrition [CONS] Routine Comment: Consulting Provider: NUTRITION Reason for Dietary Consult: MST Score Consult to Marble Helper [CONS] Routine Reason for SW Consult: POTENTIONAL NEED FOR HOME SERVICES 07/09/17 14:02 Consult to Infectious Diseases [CONS] Routine Consulting Provider: Infectious Disease [place] Reason for Consult: PMH of MDS on chemo. Admitted for sepsis & neutropenic fever. Blood culture (06/28) grew Streptococcus species. Currenlty on IV vanco & cefepime. Appreciate ID evaluation and recommendation. Call Completed: Yes Discharging clinician: Andrew Zhou Anticipated date of discharge: 07/12/17 - Patient Status Condition: Serious - Discharge Instructions Follow Up With: Bev Zelaya OUTPATIENT SURGERY RN [Advanced Practice Nurse] - 07/15/17 1:45 pm Hospital course: Mr. Lopez is a 61 year old male w/ pmh of MDS currently being treated and 30 pack year was admitted on 07/08/17 after an oncology appointment when the patient was found to be pancytopenic. On admission WBC 0.7, hgb 6.4, plt 3. Patient was also found to have a fever, max 103, and lactate of 2.4. CXR was performed with no abnormal findings. Levaquin, Flagyl, Zosyn and vanc were started in the ED, and then upon admission was continued on vanc and cefepime - Time Spent with Patient Total time spent providing and/or coordinating discharge services: - Constitutional Vitals: Temp Pulse Resp BP Pulse Ox 99.3 F 79 18 108/74 96 07/12/17 11:45 07/12/17 11:45 07/12/17 11:45 07/12/17 11:45 07/12/17 11:45 General appearance: Present: A&O X 3, pleasant, no acute distress, underweight, answers questions appropriately - VTE Documentation of Mechanical Device: Graduated compression elastic hosiery
--- NOTE | 2017-07-12 16:43 | Internal Med Progress Note ---
<Andrew Zhou - Last Filed: 07/12/17 16:45> Date of Encounter: 07/12/17 Time of Encounter: 16:40 - Assessment and plan (1) Sepsis Current Visit: Yes Status: Acute Assessment and plan: On admission patient met Sepsis criteria - fever, tachycardia. leukopenia and lactic acid 2.4. Currently vitals are stable, but remains pancytopenic. has received 2 unit prbc and 6 units of plt, with poor laboratory response. Blood cx grew strep but recheck was negative. - Continue IV vancomycin and cefepime - Cont anti fungal - Micafungin for fungal coverage Qualifiers: Sepsis type: Streptococcus, other Qualified Code(s): A40.8 - Other streptococcal sepsis (2) Neutropenic fever Current Visit: Yes Status: Acute Assessment and plan: ANC- still 0 - Cont Neupogen daily - Heme Onc on board; recommended transfer to [facility] onc. patient declines today and would like to rest. will reevaluate in the morning. if patient still refuses, will consult palliative. - His Neutropenia - mostly due to Chemo induced for MDS - Neutropenic precaution. - Continue IV vancomycin, cefepiem and micafungin. (3) Tobacco abuse Current Visit: Yes Status: Acute Assessment and plan: counseled to quit on nicotine patch (4) Anxiety Current Visit: No Status: Acute Assessment and plan: currently stable (5) Pancytopenia Current Visit: Yes Status: Chronic Assessment and plan: chronic. not responding to replacement. see above (6) MDS (myelodysplastic syndrome) Current Visit: Yes Status: Acute Assessment and plan: Oncology on board. 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 Earlier during the day, [facility] onc recommended that patient to be transferred to [facility], patient refuses. He states he wants to rest and go home, and he's ok to "". Throughout the day patient has been in significant amount of pain throughout the day. his pain is sharp and achy in his lower extremities bilaterally. Pain is chronic. his morphine was increased today, which has managed his pain - Constitutional Vitals: Temp Pulse Resp BP Pulse Ox 98.3 F 83 18 113/75 95 07/12/17 16:35 07/12/17 16:35 07/12/17 16:35 07/12/17 16:35 07/12/17 16:35 General appearance: Present: cachectic, disheveled, A&O X 2, severe distress, underweight, loss of weight - Respiratory Respiratory exam: Present: prolonged expiratory phase, wheezes Additional comments: patient was uncooperative with effort - Cardiovascular Cardiovascular exam: Present: RRR, +S1, +S2. Absent: diastolic murmur, gallop, rubs, systolic murmur - GI/Abdominal GI/Abdominal exam: Present: normal bowel sounds, soft, no peritoneal signs. Absent: distended, tenderness - Neurological Exam Neurological exam: Present: alert - Psychiatric Psychiatric exam: Present: depressed Internal Medicine: Result - Labs CBC & Chem 7: 07/11/17 09:17 07/11/17 09:17 - ABG Interpretation ABG results: PT/INR, D-dimer PT 15.3 Seconds (9.4-12.1) H 07/09/17 02:40 - VTE Documentation of Mechanical Device: Graduated compression elastic hosiery Consult Discharge Plan - Plan Referrals: Bev Zelaya CNP [Advanced Practice Nurse] - 07/15/17 1:45 pm <Faraz Salcido - Last Filed: 07/12/17 17:03> Date of Encounter: 07/12/17 - Assessment and plan (1) Sepsis Current Visit: Yes Status: Acute Qualifiers: Sepsis type: Streptococcus, other Qualified Code(s): A40.8 - Other streptococcal sepsis (2) Neutropenic fever Current Visit: Yes Status: Acute (3) Tobacco abuse Current Visit: Yes Status: Acute (4) Anxiety Current Visit: No Status: Acute (5) Pancytopenia Current Visit: Yes Status: Chronic (6) MDS (myelodysplastic syndrome) Current Visit: Yes Status: Acute (7) Physical deconditioning Current Visit: Yes Status: Acute (8) DVT prophylaxis Current Visit: Yes Status: Acute - Constitutional Vitals: Temp Pulse Resp BP Pulse Ox 98.3 F 83 18 113/75 95 07/12/17 16:35 07/12/17 16:35 07/12/17 16:35 07/12/17 16:35 07/12/17 16:35 Internal Medicine: Result - Labs CBC & Chem 7: 07/11/17 09:17 07/11/17 09:17 - ABG Interpretation ABG results: PT/INR, D-dimer PT 15.3 Seconds (9.4-12.1) H 07/09/17 02:40 - Attending Attestation I examined this patient and my medical decision-making was reviewed with the Resident Physician Dr. Zhou. I agree with the documented findings, disposition and treatment plan as described except to the extent set forth below. Mr. Lopez is a 61 year old male with known PMH of MDS, who gets frequent blood transfusions, also has h/o depression and anxiety who was sent to our ER from Hem Onc office due to severe thrombocytopenia @ 3K. Pt also happened to have severe neutropenia and developed fever. He is alert, awake and O x 3. He still has fever spikes.. T max 100.7 last night. Gen: A, , O x3 Chest : No port noticed.. CTA, No wheezing, No crackles Abd: Soft, NT Heart: S1S2+ a/p 1. Neutropenic fever 2. Sepsis 3. Bacteremia - 1/2 positive for Group G strep 4. MDS cont empirical broad spec abx - Cefepime and Micafungin ID on board.. recommend to d/c Vancomycin and Cont Cefepime repeat blood cx - no growth so far Will consult ID later His neutropenia mostly due to Chemo induced + MDS Heme Onc Dr. Rdz recommended transfer to [facility] and arranged consultation with Dr. Allison for concern for disease progression and need for bone marrow aspiration biopsy to assess potential progression to AML. Discussed concern for progression and plan for transfer to [facility] however patient is refusing at this time, patient wishes to continue to stay here. Tried to call his mother, no answer, left a voice message. Will talk to pt again in AM Will consult palliative care team in AM 5. Severe thrombocytopenia keep replacing platelets.. goal to keep > 20K
[2017-07-12] MEDS ORDERED: 0.9 % Sodium Chloride 250 ML ONE (17:14)
[2017-07-12] MEDS: *HR* Morphine 2 MG/ML SYRINGE IVP PRN (21:31)
[2017-07-13] MEDS: metroNIDAZOLE 500 MG TABLET PO SCH ×2 (01:23→09:21)
[2017-07-13] MEDS: Lactobacillus 1 EACH CAP.SPRINK PO SCH ×2 (01:23→09:20)
[2017-07-13] MEDS: *HR* OxyCODONE Immed Rel 5 MG TABLET PO PRN ×2 (01:28→09:20)
[2017-07-13] MEDS: *HR* Morphine 2 MG/ML SYRINGE IVP PRN ×2 (01:28→11:29)
[2017-07-13] MEDS: Cefepime HCl 1,000 MG in Water for inj. (sterile) 20 ML 10 ML IVP SCH (05:39)
[2017-07-13] MEDS: Micafungin 100 MG in 0.9 % Sodium Chloride Mini Bag 100 ML IVPB SCH (09:17)
[2017-07-13 09:18] LABS: Hematocrit 26.1 % (37.5-50.1); Lymphocytes # 0.3 K/mcL (0.6-4.6); Lymphocytes % 82.4 %; Mean Corpuscular HGB Conc 34.5 g/dL (31.6-35.5); Mean Corpuscular Hemoglobin 28.4 pg (28.0-33.3); Mean Corpuscular Volume 82.3 fL (83.0-100.0); Mean Platelet Volume 10.4 fL (9.4-12.4); Monocytes % 14.7 %; Nucleated Red Blood Cells 5.9 /100 WBC (0); Red Blood Count 3.17 M/mcL (4.19-5.50); Red Cell Distribution Width 12.4 % (11.5-14.5); Segmented Neutrophils % 2.9 %
[2017-07-13] MEDS: Gabapentin 100 MG CAPSULE PO SCH (09:20)
[2017-07-13 09:51] LABS: Alanine Aminotransferase 27 Units/L (7-52); Albumin 2.3 g/dL (3.5-5.7); Albumin/Globulin Ratio 0.7 (1.1-2.2); Alkaline Phosphatase 35 Units/L (34-104); Aspartate Amino Transferase 26 Units/L (13-39); BUN/Creatinine Ratio 29 (6-26); Bilirubin,Total 0.5 mg/dL (0.3-1.0); Blood Urea Nitrogen 14 mg/dL (8-23); Calcium 7.8 mg/dL (8.6-10.3); Carbon Dioxide 25 mEq/L (23-29); Chloride 104 mEq/L (98-107); Globulin 3.2 g/dL (2.4-3.5); Glucose 144 mg/dL (70-105); Osmolality,Calculated 287 (280-300); Potassium 3.1 mEq/L (3.5-5.1); Sodium 137 mEq/L (136-145); Total Protein 5.5 g/dL (6.4-8.9); eGFR For African Americans > 60 (> 60); eGFR For Non-African Americans > 60 (> 60)
[2017-07-13 09:53] LABS: Platelet Count 27 K/mcL (140-400)
[2017-07-13 09:54] LABS: Platelet Estimate Decreased (Normal)
--- NOTE | 2017-07-13 11:02 | Oncology Inp Progress Note ---
<Sanna Desai L - Last Filed: 07/13/17 14:35> Date of Encounter: 07/13/17 Time of Encounter: 11:02 (1) MDS (myelodysplastic syndrome) Status: Acute Assessment and plan: 1. MDS. 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 Second cycle of decitabine received on 07/07/17. Presented to emergency room on 07/08/17 with the low platelet counts of around 3000, no bleeding reported at this time. Blood culture had shown Streptococcus and patient is being hospitalized for neutropenic fever, sepsis. Group G strep. septicemia, on Micafungin and cefepime. ID following, de- escalating cefepime for NO fever within past 48 hours. No need for fungal/viral coverage at this juncture, but will be considered if prolonged episodes of neutropenia. C Diff positive, treating with Flagyl, he continues to have multiple loose stools. Flow cytometry on peripheral blood confirmed 16% blasts Dr. Rdz d/w [facility] pathology, this is indicative of disease progression and he is needing further evaluation and treatment discussions with Dr. Cho with [facility]. Will not plan for another bone marrow biopsy at this time as Neupogen may skew results. Plan to continue supportive treatment at this facility with no plans for transfer at this time and follow up with [facility] upon resolution of his acute issues. Transfusion to keep hgb >7 and platelets >10. Currently on Neupogen for neutropenia, may continue at this time, likely stop tomorrow if counts continue to show slight improvement. He has multiple financial and transportation concerns, may benefit from financial counselor/sw discussions or can be done on outpatient basis once he is feeling better. Please refer to Dr. Lorenzo's attestation below for further details Oncology: Subj Interval history: Mr. Lopez reports he had a rough night with multiple episodes of diarrhea. Pain while significant per patient is controlled with medication. Denies s/s bleeding, chest pain, SOB, nausea/vomiting, or vertigo. - Constitutional Vitals: Vital Signs Temp Pulse Resp BP Pulse Ox 07/13/17 09:00 98.4 F 81 16 100/65 97 07/13/17 04:20 99.4 F 97 19 119/73 99 07/12/17 23:51 99.2 F 82 18 103/68 98 07/12/17 20:44 98.6 F 82 19 115/79 99 07/12/17 20:15 98.5 F 83 16 129/76 98 07/12/17 17:40 97.9 F 81 18 119/80 07/12/17 17:20 98.0 F 87 18 114/77 07/12/17 16:35 98.3 F 83 18 113/75 95 07/12/17 11:45 99.3 F 79 18 108/74 96 Intake and Output 07/12/17 07/13/17 07/13/17 23:59 07:59 15:59 Intake Total 460 / 460 0 / 0 Output Total 600 / 600 225 / 225 Balance -140 / -140 -225 / -225 Intake: IV Fluids Maxipime 1,000 MG In Water for inj. (sterile) 10 ML @ 150 mls/ hr IVP Q8H [facility] Rx#:[id number] Oral 0 / 0 0 / 0 Blood Product 450 / 450 Platelet Pheresis Lp Irr 2nd 450 / 450 Unit [id number] Output: Urine 600 / 600 225 / 225 Other: Meal Breakfast Percent of Meal Consumed 10% Stool Size Large Large Stool Consistency liquid liquid Stool Characteristics Seedy Stool Color Brown Yellow # Bowel Movements 1 Weight 55 kg Patient Weight 07/13/17 23:59 Weight 55 kg General appearance: cooperative, no acute distress, thin, no febrile Exam: chronically ill appearing - Head Head exam: Present: atraumatic - Respiratory Respiratory exam: Present: decreased breath sounds, CTAB - Cardiovascular Cardiovascular exam: Present: RRR, +S1, +S2 - GI/Abdominal GI/Abdominal exam: Present: normal bowel sounds, soft, tenderness - Extremities Exam Extremities exam: Absent: calf tenderness, pedal edema - Neurological Exam Neurological exam: Present: alert, oriented X3, strengths equal and symetr throughout. Absent: no focal deficits - Skin Skin exam: Present: normal color, warm Oncology: Obj Data - Labs CBC & Chem 7: 07/13/17 08:57 07/13/17 08:57 - ABG Interpretation ABG results: PT/INR, D-dimer PT 15.3 Seconds (9.4-12.1) H 07/09/17 02:40 Consult Discharge Plan - Plan Additional Instructions: Transferred to [facility] by ambulance for further specialty treatment. Accepting physician is Dr. Waleska Grimes. Referrals: Bev Zelaya SILK SCREEN PROCESSOR [Advanced Practice Nurse] - (Pt went to [facility]) <Ganesh Lorenzo - Last Filed: 07/13/17 21:39> Date of Encounter: 07/13/17 - Constitutional Vitals: Vital Signs Temp Pulse Resp BP Pulse Ox 07/13/17 11:20 99.1 F 73 16 132/78 97 07/13/17 09:00 98.4 F 81 16 100/65 97 07/13/17 04:20 99.4 F 97 19 119/73 99 07/12/17 23:51 99.2 F 82 18 103/68 98 Intake and Output 07/13/17 07/13/17 07/14/17 08:59 16:59 00:59 Intake Total 0 / 0 Output Total 225 / 225 Balance -225 / -225 Intake: Oral 0 / 0 Output: Urine 225 / 225 Other: Meal Breakfast Percent of Meal Consumed 10% Stool Size Large Stool Consistency liquid # Bowel Movements 1 Weight 55 kg Patient Weight 07/14/17 00:59 Weight 55 kg Oncology: Obj Data - Labs CBC & Chem 7: 07/13/17 08:57 07/13/17 08:57 Labs: Laboratory Results - last 24 hr 07/12/17 07/13/17 07/13/17 19:57 08:57 08:57 WBC 0.3 L* RBC 3.17 L Hgb 9.0 L Hct 26.1 L MCV 82.3 L MCH 28.4 MCHC 34.5 RDW 12.4 Plt Count 27 L* D MPV 10.4 Immature Gran % 0.0 Seg Neutrophils % 2.9 Lymphocytes % 82.4 Monocytes % 14.7 Eosinophils % 0.0 Basophils % 0.0 Neutrophils # 0.0 L Lymphocytes # 0.3 L Monocytes # 0.0 Eosinophils # 0.0 Basophils # 0.0 Nucleated RBCs/100 WBC 5.9 H Platelet Estimate Decreased L Sodium 137 Potassium 3.1 L Chloride 104 Carbon Dioxide 25 BUN 14 Creatinine 0.48 L Est GFR ( Amer) > 60 Est GFR (Non-Af Amer) > 60 BUN/Creatinine Ratio 29 H Glucose 144 H Calculated Osmolality 287 Calcium 7.8 L Total Bilirubin 0.5 AST 26 ALT 27 Alkaline Phosphatase 35 Serum Total Protein 5.5 L Albumin 2.3 L Globulin 3.2 Albumin/Globulin Ratio 0.7 L Stl C. diff Tox B Gene Positive - ABG Interpretation ABG results: PT/INR, D-dimer PT 15.3 Seconds (9.4-12.1) H 07/09/17 02:40 - Attending Attestation I examined this patient and my medical decision-making was reviewed with the Advanced Practice Nurse. I agree with the documented findings, disposition and treatment plan as described except to the extent set forth below. Persistent cytopenias despite G-CSF. Feeling better overall. He desires to seek care at [facility]. I d/w staff at [facility] today and plan was to treat neutropenic fever and f/u as outpatient and d/c G-CSF as this may interfere with BM biopsy results. Transfer of care has been arranged by Dr. Rdz. Further care per her recommendations.
--- NOTE | 2017-07-13 11:32 | Discharge Summary ---
Date of Encounter: 07/13/17 Time of Encounter: 11:29 - Discharge Diagnosis (1) C. difficile colitis Priority: Secondary Status: Acute (2) Tobacco abuse Priority: Secondary Status: Acute (3) Anxiety Priority: Secondary Status: Acute (4) Pancytopenia Priority: Secondary Status: Chronic (5) Leg pain Priority: Secondary Status: Acute Qualifiers: Laterality: bilateral Qualified Code(s): M79.604 - Pain in right leg; M79.605 - Pain in left leg; M79.605 - Pain in left leg (6) MDS (myelodysplastic syndrome) Priority: Primary Status: Acute (7) Neutropenic fever Priority: Secondary Status: Acute - Discharge Medications Home Medications: OxyCODONE Immed Rel [Roxicodone 5 MG] 5 mg PO Q8HR PRN #90 tablet 06/07/17 [Rx] Zolpidem [Ambien] 5 mg PO HS PRN #30 tablet 06/07/17 [Rx] Prochlorperazine Maleate [Compazine] 10 mg PO Q8HR 06/14/17 [History] Alprazolam [Xanax] 2 mg PO TID 06/18/17 [History] Citalopram Hydrobromide [Celexa] 40 mg PO DAILY 06/18/17 [History] Allergies/Adverse Reactions: 3 Allergy/AdvReac Type Severity Reaction Status Date / Time No Known Allergies Allergy Verified 06/18/17 09:16 Date of admission: 07/08/17 20:47 Primary care physician: Getachew Fraser MD Consults: 07/08/17 21:17 Consult to Nutrition [CONS] Routine Comment: Consulting Provider: NUTRITION Reason for Dietary Consult: MST Score Consult to Windmill Mechanic [CONS] Routine Reason for SW Consult: POTENTIONAL NEED FOR HOME SERVICES 07/09/17 14:02 Consult to Infectious Diseases [CONS] Routine Consulting Provider: Infectious Disease [place] Reason for Consult: PMH of MDS on chemo. Admitted for sepsis & neutropenic fever. Blood culture (06/28) grew Streptococcus species. Currenlty on IV vanco & cefepime. Appreciate ID evaluation and recommendation. Call Completed: Yes - Patient Status Disposition: Transfer Other Condition: Serious Functional capacity at discharge: bed bound Overall status at discharge: patient is not back to baseline - Discharge Instructions Follow Up With: Bev Zelaya CNP [Advanced Practice Nurse] - (Pt went to [facility]) Additional Instructions: Transferred to [facility] by ambulance for further specialty treatment. Accepting physician is Dr. Waleska Grimes. - Diet and Activity Activity: other Diet: regular diet Hospital course: This is a brief hospital course. For further details please refer to the progress notes and consultation notes. Mr. Lopez is a 61 year old male with past medical history of myelodysplastic syndrome on treatment with decitimbe by Dr Rdz. He had routine blood work done [facility] and he was called to present to the emergency department because his platelet count was 30,000. He was admitted to the medical service. He received a total of 5 units platelet transfusion and 2 units of PRBC. His white blood cell count was 0.2 initially. He was febrile and was covered for neutropenic fever with broad-spectrum IV antibiotics. His fever has resolved. He had diarrhea and was diagnosed with C. difficile colitis for which she was started on treatment with oral Flagyl. His blood culture grew group G Streptococcus, likely contamination. Repeat blood cultures on 2 occasions remained sterile. Patient made a good clinical improvement. He was evaluated by oncology who recommended transfer to a tertiary care facility for further oncology workup and care. Patient was accepted at [facility] and will be transferred by ambulance. Time spent discussing smoking cessation with patient: 3 to 10 minutes - Time Spent with Patient Total time spent providing and/or coordinating discharge services: Greater than 30 minutes - Constitutional Vitals: Temp Pulse Resp BP Pulse Ox 98.4 F 81 16 100/65 97 07/13/17 09:00 07/13/17 09:00 07/13/17 09:00 07/13/17 09:00 07/13/17 09:00 General appearance: Present: cachectic, disheveled, A&O X 2, underweight, loss of weight - Respiratory Respiratory exam: Present: CTAB. Absent: accessory muscle use, rales, rhonchi, wheezes - Cardiovascular Cardiovascular exam: Present: RRR, +S1, +S2. Absent: diastolic murmur, gallop, rubs, systolic murmur - GI/Abdominal GI/Abdominal exam: Present: normal bowel sounds, soft, no peritoneal signs. Absent: distended, tenderness - VTE Documentation of Mechanical Device: Graduated compression elastic hosiery
--- NOTE | 2017-07-13 12:10 | Infectious Disease Progress No ---
Date of Encounter: 07/13/17 Time of Encounter: 12:07 - Assessment and Plan (1) Severe sepsis Current Visit: Yes Status: Acute The patient had three SIRS criteria plus lactic acidosis. Likely secondary to bacteremia. Improved. The patient has been afebrile. His WBC remains very low.. Blood cultures drawn 07/08/17 were positive 1/2 sets for Group G strep. Repeat blood cultures drawn 07/10/17 x 2 and 07/11/17 x 2 are NGTD. (2) Neutropenic fever Current Visit: Yes Status: Acute Likely secondary to bacteremia. Improve. The patient has been afebrile x 48 hours. ANC 246 today. Continue Cefepime, but increase dose to 2 grams IV Q8H. Continue micafungin 100mg IV daily. Will defer antiviral regimen to the Hem/Onc team. Monitor renal and liver function and dose-adjust antibiotics. (3) Streptococcal bacteremia Current Visit: Yes Status: Acute Causative organism: Group G strep. Source likely GI kristian. Blood cultures drawn 07/08/17 were positive 1/2 sets for Group G strep. Repeat blood cultures drawn 07/10/17 x 2 and 07/11/17 x 2 are NGTD. Continue Cefepime, but increase to 2 grams IV Q8H. Duration of treatment depends on the clinical picture. Monitor renal function and dose-adjust antibiotics. (4) C. difficile colitis Current Visit: Yes Status: Acute C. diff positive. Likely secondary to recent antibiotic use and immunocompromised status. Continue flagyl 500mg PO TID. De-escalate/discontinue antibiotics if/when able. Continue C. diff precautions per policy. (5) Pancytopenia Current Visit: Yes Status: Chronic Likely secondary to MDS. Hem/Onc consulted and following. (6) MDS (myelodysplastic syndrome) Current Visit: Yes Status: Acute Recently diagnosed with bone marrow biopsy in 04/2017. 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 Recently treated with Decitimbe. Hem/Onc consulted and following. - Subjective Interval history: Patient seen and examined. No acute events noted overnight. Patient reports that overall he doesn't feel very well today. Denies any fevers or chills or rigors. Denies any chest pain, shortness of breath, or cough. Denies any nausea or vomiting. Reports diarrhea. States he's had 2 bowel movements this morning. Denies any abdominal pain, but states he doesn't have much of an appetite. Denies urinary complaints. Complains of chronic bilateral leg pain. Denies any oral thrush or new skin lesions. Infect Dis PN-Objective Data - Labs CBC & Chem 7: 07/13/17 08:57 07/13/17 08:57 Labs: Laboratory Results - last 24 hr 07/12/17 07/12/17 07/13/17 14:56 19:57 08:57 WBC 0.3 L* RBC 3.17 L Hgb 9.0 L Hct 26.1 L MCV 82.3 L MCH 28.4 MCHC 34.5 RDW 12.4 Plt Count 27 L* D MPV 10.4 Immature Gran % 0.0 Seg Neutrophils % 2.9 Lymphocytes % 82.4 Monocytes % 14.7 Eosinophils % 0.0 Basophils % 0.0 Neutrophils # 0.0 L Lymphocytes # 0.3 L Monocytes # 0.0 Eosinophils # 0.0 Basophils # 0.0 Nucleated RBCs/100 WBC 5.9 H Platelet Estimate Decreased L Sodium Potassium Chloride Carbon Dioxide BUN Creatinine Est GFR ( Amer) Est GFR (Non-Af Amer) BUN/Creatinine Ratio Glucose Calculated Osmolality Calcium Total Bilirubin AST ALT Alkaline Phosphatase Serum Total Protein Albumin Globulin Albumin/Globulin Ratio Stl C. diff Tox B Gene Positive Blood Type O POSITIVE Antibody Screen NEGATIVE 07/13/17 08:57 WBC RBC Hgb Hct MCV MCH MCHC RDW Plt Count MPV Immature Gran % Seg Neutrophils % Lymphocytes % Monocytes % Eosinophils % Basophils % Neutrophils # Lymphocytes # Monocytes # Eosinophils # Basophils # Nucleated RBCs/100 WBC Platelet Estimate Sodium 137 Potassium 3.1 L Chloride 104 Carbon Dioxide 25 BUN 14 Creatinine 0.48 L Est GFR ( Amer) > 60 Est GFR (Non-Af Amer) > 60 BUN/Creatinine Ratio 29 H Glucose 144 H Calculated Osmolality 287 Calcium 7.8 L Total Bilirubin 0.5 AST 26 ALT 27 Alkaline Phosphatase 35 Serum Total Protein 5.5 L Albumin 2.3 L Globulin 3.2 Albumin/Globulin Ratio 0.7 L Stl C. diff Tox B Gene Blood Type Antibody Screen Cultures: Cultures 07/11/17 07:11 Blood Culture - Preliminary Peripheral Venipuncture No growth. 07/11/17 07:11 Blood Culture - Preliminary Peripheral Venipuncture No growth. 07/10/17 03:19 Blood Culture - Preliminary Peripheral Venipuncture No growth. 07/10/17 03:19 Blood Culture - Preliminary Peripheral Venipuncture No growth. Serology 07/12/17 Range/Units 19:57 Stl C. diff Tox B Gene Positive (Negative) Exam - Constitutional Vitals: Temp Pulse Resp BP Pulse Ox 98.4 F 81 16 100/65 97 07/13/17 09:00 07/13/17 09:00 07/13/17 09:00 07/13/17 09:00 07/13/17 09:00 General appearance: cooperative, no acute distress, thin - Head Head exam: Present: atraumatic, normal inspection, normocephalic - Eye Eye exam: Present: EOMI, normal appearance, PERRL Pupils: Present: normal accommodation - ENT ENT exam: Present: mucous membranes moist - Neck Neck exam: Present: normal inspection - Respiratory Respiratory exam: Present: CTAB. Absent: rales, respiratory distress, rhonchi, wheezes - Cardiovascular Cardiovascular exam: Present: RRR, +S1, +S2 - GI/Abdominal GI/Abdominal exam: Present: normal bowel sounds, soft. Absent: distended, tenderness - Extremities Exam Extremities exam: Absent: joint swelling, pedal edema, tenderness Additional comments: Flat, macular rash noted to the BLE. - Neurological Exam Neurological exam: Present: alert, oriented X3, no focal deficits - Psychiatric Psychiatric exam: Present: normal affect, normal mood - Skin Skin exam: Present: dry, intact, normal color, rash (Flat, erythematous, non- itchy lesions noted to the BLE.), warm - VTE Documentation of Mechanical Device: Graduated compression elastic hosiery Consult Discharge Plan - Plan Additional Instructions: Transferred to [facility] by ambulance for further specialty treatment. Accepting physician is Dr. Waleska Grimes. Referrals: Bev Zelaya COMMUTATOR TESTER [Advanced Practice Nurse] - 07/15/17 1:45 pm - Attending Attestation I examined this patient and my medical decision-making was reviewed with the Resident Physician. I agree with the documented findings, disposition and treatment plan as described except to the extent set forth below.
[2017-07-13 12:29] VITALS: BP 132/78
== END 2017-07-13 14:48 | disposition other institution (70) | DRG 871 ==
LOC: 3ANU 16:17 → EMEROO 16:17 → SUATTDRO 18:18 → 2NENU 19:37 → 2NNU 19:49
PROVIDERS: ADMIT Internal Medicine; ATTEND Internal Medicine

== ENCOUNTER 2017-07-30 09:52 | Inpatient (IN) ==
[2017-07-30] MEDS ORDERED: Cefepime HCl 2,000 MG in D5% in Water (Mini-Bag+) 100 ML IVPB STA (09:57)
[2017-07-30] MEDS: 0.9 % Sodium Chloride 1,000 ML IVC ONE ×4 (10:15→14:46)
[2017-07-30 10:56] LABS: Lymphocytes # 0.2 K/mcL (0.6-4.6); Lymphocytes % 69.7 %; Mean Corpuscular HGB Conc 33.6 g/dL (31.6-35.5); Mean Corpuscular Hemoglobin 27.1 pg (28.0-33.3); Mean Corpuscular Volume 80.7 fL (83.0-100.0); Monocytes # 0.1 K/mcL (0.0-1.3); Monocytes % 27.3 %; Red Blood Count 1.81 M/mcL (4.19-5.50); Red Cell Distribution Width 12.5 % (11.5-14.5)
[2017-07-30] MEDS: Vancomycin 1,000 MG in D5% in Water 250 ML IVPB ONE ×2 (10:59→14:43)
[2017-07-30 11:00] LABS: INR 2.1; Prothrombin Time 23.5 Seconds (9.4-12.1)
[2017-07-30 11:02] LABS: Hematocrit 14.6 % (37.5-50.1); Hemoglobin 4.9 g/dL (12.9-16.9); Platelet Count 4 K/mcL (140-400)
[2017-07-30 11:03] LABS: Activated Partial Thrombo Time 32.6 Seconds (26.0-36.0)
[2017-07-30 11:20] LABS: Alanine Aminotransferase 25 Units/L (7-52); Albumin 2.1 g/dL (3.5-5.7); Albumin/Globulin Ratio 0.7 (1.1-2.2); Alkaline Phosphatase 28 Units/L (34-104); Aspartate Amino Transferase 104 Units/L (13-39); BUN/Creatinine Ratio 24 (6-26); Bilirubin,Direct 0.4 mg/dL (0.0-0.2); Bilirubin,Indirect 0.5 mg/dL (0.0-1.2); Bilirubin,Total 0.9 mg/dL (0.3-1.0); Blood Urea Nitrogen 40 mg/dL (8-23); Carbon Dioxide 17 mEq/L (23-29); Chloride 103 mEq/L (98-107); Globulin 3.1 g/dL (2.4-3.5); Glucose 69 mg/dL (70-105); Magnesium 1.5 mg/dL (1.6-2.6); Osmolality,Calculated 286 (280-300); Phosphorous 4.2 mg/dL (2.7-4.5); Potassium 3.7 mEq/L (3.5-5.1); Sodium 134 mEq/L (136-145); Total Protein 5.2 g/dL (6.4-8.9); eGFR For African Americans 51 (> 60); eGFR For Non-African Americans 42 (> 60)
[2017-07-30 11:23] LABS: Platelet Estimate Marked Decrease (Normal)
[2017-07-30 11:25] LABS: Anisocytosis 1+ (Not Present)
[2017-07-30] MEDS ORDERED: Cefepime HCl 2,000 MG in Water for inj. (sterile) 20 ML 20 ML IVP STA (11:41)
[2017-07-30] MEDS ORDERED: 0.9 % Sodium Chloride 1,000 ML IVC ONE (11:41)
--- NOTE | 2017-07-30 11:48 | Emergency Department Note ---
Disposition Referrals: Getachew Fraser MD [Primary Care Provider] - Forms: Work/School Release, ED Satisfaction Letter Fever HPI - General Chief Complaint: ED Fever Stated Complaint: Reported fever, weakness Time Seen by Provider: 07/30/17 09:54 Source: patient, family Mode of arrival: ambulatory Limitations: no limitations Nursing Notes Reviewed: Yes Vital Signs Reviewed: Yes - History of Present Illness Pt Subjective Complaint: fever, malaise - Related Data Home Medications Medication Instructions Recorded Confirmed Unable To Obtain [Unable to Obtain] 07/30/17 07/30/17 Allergies Allergy/AdvReac Type Severity Reaction Status Date / Time No Known Allergies Allergy Verified 07/26/17 12:40 Fever PMH - Past Medical History Medical history: Reports: cancer, other Surgical history: Reports: orthopedic, other Psychiatric history: Reports: anxiety, depression - Social History Smoking Status: Current every day smoker Alcohol use: Reports: none Drug use: Reports: none Physical Exam - General Limitations: no limitations General appearance: alert, in no apparent distress Course Vital Signs Temperature 97.4 F L 07/30/17 09:53 Pulse Rate 119 07/30/17 09:53 Respiratory Rate 20 07/30/17 09:53 Blood Pressure 103/61 07/30/17 09:53 O2 Sat by Pulse Oximetry 97 07/30/17 09:53 Temperature 97.4 F L 07/30/17 09:53 Pulse Rate 141 07/30/17 11:00 Respiratory Rate 24 07/30/17 11:00 Blood Pressure 97/55 07/30/17 11:00 O2 Sat by Pulse Oximetry 99 07/30/17 11:00 Oxygen Delivery Oxygen Delivery Room Air Fever - Lab Data Result diagrams: 07/30/17 10:37 07/30/17 10:37 Lab Results 07/30/17 07/30/17 07/30/17 Range/Units 09:55 10:35 10:37 WBC 0.3 L* D (4.3-11.1) K/mcL RBC 1.81 L (4.19-5.50) M/mcL Hgb 4.9 L* (12.9-16.9) g/dL Hct 14.6 L* (37.5-50.1) % MCV 80.7 L (83.0-100.0) fL MCH 27.1 L (28.0-33.3) pg MCHC 33.6 (31.6-35.5) g/dL RDW 12.5 (11.5-14.5) % Plt Count 4 L* (140-400) K/mcL MPV TNP Immature Gran % 0.0 (0-4) % Seg Neutrophils % 3.0 % Lymphocytes % 69.7 % Monocytes % 27.3 % Eosinophils % 0.0 % Basophils % 0.0 % Neutrophils # 0.0 L (1.6-8.9) K/mcL Lymphocytes # 0.2 L (0.6-4.6) K/mcL Monocytes # 0.1 (0.0-1.3) K/mcL Eosinophils # 0.0 (0.0-0.6) K/mcL Basophils # 0.0 (0.0-0.2) K/mcL Platelet Estimate Marked Decrease L (Normal) Anisocytosis 1+ A (Not Present) PT (9.4-12.1) Seconds INR APTT (26.0-36.0) Seconds Sodium (136-145) mEq/L Potassium (3.5-5.1) mEq/L Chloride (98-107) mEq/L Carbon Dioxide (23-29) mEq/L BUN (8-23) mg/dL Creatinine (0.70-1.30) mg/dL Est GFR ( Amer) (> 60) Est GFR (Non-Af Amer) (> 60) BUN/Creatinine Ratio (6-26) Glucose (70-105) mg/dL POC Glucose 80 (58-89) Calculated Osmolality (280-300) Lactic Acid (0.5-2.2) mmol/L Calcium (8.6-10.3) mg/dL Phosphorus (2.7-4.5) mg/dL Magnesium (1.6-2.6) mg/dL Total Bilirubin (0.3-1.0) mg/dL Direct Bilirubin (0.0-0.2) mg/dL Indirect Bilirubin (0.0-1.2) mg/dL AST (13-39) Units/L ALT (7-52) Units/L Alkaline Phosphatase (34-104) Units/L Troponin I (< 0.04) ng/mL B-Natriuretic Peptide (Less than 100) pg/mL Serum Total Protein (6.4-8.9) g/dL Albumin (3.5-5.7) g/dL Globulin (2.4-3.5) g/dL Albumin/Globulin Ratio (1.1-2.2) Blood Type O POSITIVE Antibody Screen NEGATIVE Crossmatch See Detail 07/30/17 07/30/17 07/30/17 Range/Units 10:37 10:37 10:37 WBC (4.3-11.1) K/mcL RBC (4.19-5.50) M/mcL Hgb (12.9-16.9) g/dL Hct (37.5-50.1) % MCV (83.0-100.0) fL MCH (28.0-33.3) pg MCHC (31.6-35.5) g/dL RDW (11.5-14.5) % Plt Count (140-400) K/mcL MPV Immature Gran % (0-4) % Seg Neutrophils % % Lymphocytes % % Monocytes % % Eosinophils % % Basophils % % Neutrophils # (1.6-8.9) K/mcL Lymphocytes # (0.6-4.6) K/mcL Monocytes # (0.0-1.3) K/mcL Eosinophils # (0.0-0.6) K/mcL Basophils # (0.0-0.2) K/mcL Platelet Estimate (Normal) Anisocytosis (Not Present) PT 23.5 H (9.4-12.1) Seconds INR 2.1 APTT 32.6 (26.0-36.0) Seconds Sodium 134 L (136-145) mEq/L Potassium 3.7 (3.5-5.1) mEq/L Chloride 103 (98-107) mEq/L Carbon Dioxide 17 L (23-29) mEq/L BUN 40 H (8-23) mg/dL Creatinine 1.67 H (0.70-1.30) mg/dL Est GFR ( Amer) 51 L (> 60) Est GFR (Non-Af Amer) 42 L (> 60) BUN/Creatinine Ratio 24 (6-26) Glucose 69 L (70-105) mg/dL POC Glucose (58-89) Calculated Osmolality 286 (280-300) Lactic Acid 7.8 H* (0.5-2.2) mmol/L Calcium 8.0 L (8.6-10.3) mg/dL Phosphorus 4.2 (2.7-4.5) mg/dL Magnesium 1.5 L (1.6-2.6) mg/dL Total Bilirubin 0.9 (0.3-1.0) mg/dL Direct Bilirubin 0.4 H (0.0-0.2) mg/dL Indirect Bilirubin 0.5 (0.0-1.2) mg/dL AST 104 H (13-39) Units/L ALT 25 (7-52) Units/L Alkaline Phosphatase 28 L (34-104) Units/L Troponin I (< 0.04) ng/mL B-Natriuretic Peptide (Less than 100) pg/mL Serum Total Protein 5.2 L (6.4-8.9) g/dL Albumin 2.1 L (3.5-5.7) g/dL Globulin 3.1 (2.4-3.5) g/dL Albumin/Globulin Ratio 0.7 L (1.1-2.2) Blood Type Antibody Screen Crossmatch 07/30/17 07/30/17 Range/Units 10:37 10:37 WBC (4.3-11.1) K/mcL RBC (4.19-5.50) M/mcL Hgb (12.9-16.9) g/dL Hct (37.5-50.1) % MCV (83.0-100.0) fL MCH (28.0-33.3) pg MCHC (31.6-35.5) g/dL RDW (11.5-14.5) % Plt Count (140-400) K/mcL MPV Immature Gran % (0-4) % Seg Neutrophils % % Lymphocytes % % Monocytes % % Eosinophils % % Basophils % % Neutrophils # (1.6-8.9) K/mcL Lymphocytes # (0.6-4.6) K/mcL Monocytes # (0.0-1.3) K/mcL Eosinophils # (0.0-0.6) K/mcL Basophils # (0.0-0.2) K/mcL Platelet Estimate (Normal) Anisocytosis (Not Present) PT (9.4-12.1) Seconds INR APTT (26.0-36.0) Seconds Sodium (136-145) mEq/L Potassium (3.5-5.1) mEq/L Chloride (98-107) mEq/L Carbon Dioxide (23-29) mEq/L BUN (8-23) mg/dL Creatinine (0.70-1.30) mg/dL Est GFR ( Amer) (> 60) Est GFR (Non-Af Amer) (> 60) BUN/Creatinine Ratio (6-26) Glucose (70-105) mg/dL POC Glucose (58-89) Calculated Osmolality (280-300) Lactic Acid (0.5-2.2) mmol/L Calcium (8.6-10.3) mg/dL Phosphorus (2.7-4.5) mg/dL Magnesium (1.6-2.6) mg/dL Total Bilirubin (0.3-1.0) mg/dL Direct Bilirubin (0.0-0.2) mg/dL Indirect Bilirubin (0.0-1.2) mg/dL AST (13-39) Units/L ALT (7-52) Units/L Alkaline Phosphatase (34-104) Units/L Troponin I 0.07 H* (< 0.04) ng/mL B-Natriuretic Peptide 360 H (Less than 100) pg/mL Serum Total Protein (6.4-8.9) g/dL Albumin (3.5-5.7) g/dL Globulin (2.4-3.5) g/dL Albumin/Globulin Ratio (1.1-2.2) Blood Type Antibody Screen Crossmatch
[2017-07-30] MEDS ORDERED: 0.9 % Sodium Chloride 500 ML ONE (12:02)
--- NOTE | 2017-07-30 12:05 | Emergency Department Note ---
Disposition Clinical Impression: Pancytopenia, Neutropenic fever, Thrombocytopenia, Severe sepsis Fever Qualifiers: Fever type: unspecified Qualified Code(s): R50.9 - Fever, unspecified Anemia Qualifiers: Anemia type: unspecified type Qualified Code(s): D64.9 - Anemia, unspecified Leukemia Qualifiers: Leukemia type: unspecified Leukemia Active/Remission status: without remission Qualified Code(s): C95.90 - Leukemia, unspecified not having achieved remission Disposition: Admitted As Inpatient Condition: Critical Referrals: Getachew Fraser MD [Primary Care Provider] - Forms: ED Satisfaction Letter, Work/School Release Time of Disposition: 12:22 General Adult HPI - General Chief complaint: ED Fever Stated complaint: Reported fever, weakness Time Seen by Provider: 07/30/17 09:54 Source: patient, family Mode of arrival: EMS Limitations: no limitations Nursing Notes Reviewed: Yes Vital Signs Reviewed: Yes - History of Present Illness HPI Narrative: Patient presents emergency room from home for evaluation of fever. Patient is currently in treatment for leukemia. Patient is concerning for neutropenic fever. Denies any other trauma. Vital signs were concerning of presentation. Patient was transported by EMS for further evaluation Onset (ago): day(s) Pain Scale: 8 Consistency: constant Associated symptoms: Reports: confusion, fever/chills, loss of appetite, malaise , shortness of breath Treatments Prior to Arrival: none - Related Data Home Medications Medication Instructions Recorded Confirmed Unable To Obtain [Unable to Obtain] 07/30/17 07/30/17 Allergies Allergy/AdvReac Type Severity Reaction Status Date / Time No Known Allergies Allergy Verified 07/26/17 12:40 All systems ED: reviewed and negative except as stated. Review of Systems: As Per HPI Constitutional: Reports: fever, weakness. Denies: chills Cardiovascular: Reports: palpitations, dyspnea on exertion, orthopnea. Denies: chest pain, edema Respiratory: Denies: cough, dyspnea Gastrointestinal: Denies: nausea, vomiting, diarrhea Genitourinary: Denies: dysuria, frequency Musculoskeletal: Denies: back pain, neck pain Neurological: Denies: headache Endocrine: Reports: fatigue Past Medical History - Past Medical History Attestation: Yes The following information was validated with the patient. Source: patient Medical history: Reports: cancer, other Surgical history: Reports: orthopedic, other Psychiatric history: Reports: anxiety, depression - Social History Smoking Status: Current every day smoker Smokeless Tobacco Status: No Alcohol use: Reports: none Drug use: Reports: none Physical Exam - General Limitations: no limitations General appearance: alert, in no apparent distress - Head Head exam: atraumatic, normocephalic, normal inspection - ENT ENT exam: normal exam, normal oropharynx, mucous membranes moist - Neck Neck exam: Present: normal inspection, full ROM, trachea midline. Absent: tenderness - Chest Chest inspection: Present: normal inspection, symmetric chest wall rise. Absent : tenderness - Respiratory Respiratory exam: Present: normal lung sounds bilaterally, respiratory distress , accessory muscle use - Cardiovascular Cardiovascular exam: Present: normal rhythm, tachycardia - Abdominal Exam Abdominal exam: Present: soft. Absent: tenderness, distention, guarding, rebound, rigidity, Ortega's sign, Rovsing's sign, tenderness at McBurney's Point - Extremities Exam Extremities exam: Present: normal inspection, full ROM, normal capillary refill - Back Exam Back exam: Present: normal inspection - Neurological Exam Neurological exam: Present: alert, oriented X3, CN II-XII intact, normal gait - Skin Skin exam: Present: warm, dry, intact, normal color Course Course Narrative: A 61-year-old male seen and examined the time of arrival. See history of present illness. Patient presents via EMS for evaluation of fever, tachycardia , generalized malaise. He is currently taking antibiotics and is under the care of the cancer center secondary to known leukemia. He was diagnosed with this in April of last year. Patient currently is a full code based on his conversations as well as history. A detailed discussion was had about his wishes and he wishes to be fully resuscitated at this time. Concern is noted initially for sepsis-like presentation with what appears to be neutropenic fever. Influenza swab, chest x-ray urinalysis CBC chemistry troponin and EKG will be added on at this time. Blood cultures and first doses of antibiotics including vancomycin, cefepime, Zosyn will be ordered. Patient does not have any meningeal-like symptoms. He does appear to be very dry. His vital signs are concerning for tachycardia tachypnea and borderline hypoxia. Patient did not have a fever initially. His lungs are diminished but he has poor aeration and muscle tone at this time. Patient's heart is tachycardic and regular. Abdomen is soft. He has no signs of pitting edema in the extremities he does move all 4 tremors. Patient is alert and able to answer appropriate medical condition questions at this time. Disposition will most likely be admission either here or up to [facility] where he also has care. Patient is critically ill at this point may decompensate and possibly . Patient is aware of this and the family has been contacted. Disposition pending workup and treatment course. Accu-Chek in transit by EMS was normal. - Reevaluation(s) Reevaluation #1: Patient had a white blood cell count of 0.3. Hemoglobin of 4.9. Platelet count of 4. I reviewed his previous chart and these appear to be lower than his previous evaluations. Concern is noted for neutropenia as well as significant decompensation. Patient was type and screen and set up for transfusion of 4 units of blood, 1 pack of platelets, 1 pack of FFP. Patient was informed of this. Central line was going to be obtained secondary to poor peripheral access. Because the patient's platelet count we placed a midline without any complication. He also has an 18-gauge IV in the left upper extremity for resuscitation this time. Hemodynamics will be monitored closely. Consultation placed onto the on-call oncologist. From that facility has been contacted and reviewed the presentation. We will inform us whether or not this patient consented facility needs to be transferred outside facility. Disposition pending the treatment course. Time: 12:15 Reevaluation #2: During the process of admitting the patient the nursing staff cannot consent the patient was decompensating when unresponsive. Blood pressure has been labile but has been mentating the entire time. We will fluid resuscitate him and also providing him blood products. Concern was noted. Intubation and respiratory status along with stabilization. Patient was emergently intubated secondary to hypotension and the mental status changes. Documentation was that the finding factor for the intubation. Patient was not protecting his airway and was not responsive any longer. Intubation completed by the resident physician and underneath my direct visualization. Intubation was completed without any complication a sounds are noted bilaterally. Repeat chest x-ray ordered. Central line was placed by myself in the right femoral distribution. No competitions were noted IV resuscitation and norepinephrine be started to this at this time. Patient is critically ill. Acute change in mental status dictated the progression of his medical management at this point. Patient family will be informed. Admission process to the ICU will be completed. The ICU attending was at the bedside during most of the evaluation resuscitation. Patient maintained pulses throughout the entire procedure. Time: 12:56 Reevaluation #3: Repeat ABG was collected secondary to poor oxygenation on the monitor. ABG shows acidemia at 7.1. Oxygenation is still at 200. Patient is ventilating poorly. When I went back and reevaluate the patient is blood pressure was labile and I looked at and his color was dusky. A check for pulses and did not have any. CPR was immediately started at that time. Epinephrine and bicarbonate were given along with calcium. Patient had one for around the resuscitation and had return of spontaneous circulation. Bicarbonate drip as well as increasing of the pressors were started. Ventilation status was reassessed. Patient is oxygenating. Accu-Chek was 32. An amp of dextrose was given and patient was transitioned to D5 normal saline. Patient's Accu-Chek on arrival was normal. His lab draw was 69. Patient most likely continue to utilize his glucose secondary to the severe septic shock presentation. Patient is critically ill. Consultation was had with the mother as well as the brother. They understand this and disclosed that they had discussed making him a DNR CC for these events here today. #To contact us the family had decided that she proceed 4. Patient has received antibiotics as well as fluid hydration bicarbonate drip and norepinephrine. In the emergency room. He is critically ill secondary to multi organism for as a sequela of his cancer. Patient also has known pneumonia with fever. Tylenol was given by rectal suppository. Patient was transported to the ICU in critical medical condition and most likely will decompensate during his hospital care. ICU attending was at the bedside dr. Lamas. Time: 14:25 Vital Signs Temperature 97.4 F L 07/30/17 09:53 Pulse Rate 119 07/30/17 09:53 Respiratory Rate 20 07/30/17 09:53 Blood Pressure 103/61 07/30/17 09:53 O2 Sat by Pulse Oximetry 97 07/30/17 09:53 Temperature 102.3 F H 07/30/17 12:28 Pulse Rate 140 07/30/17 13:13 Respiratory Rate 18 07/30/17 13:13 Blood Pressure 75/44 07/30/17 13:13 O2 Sat by Pulse Oximetry 100 07/30/17 13:13 Oxygen Delivery Oxygen Delivery Ventilator Procedures - Central Line Placement Right Femoral Central Line Inserted*: Yes Central Line Catheter Replacement*: No Central Line Insertion: emergent Patient Placed on Monitor/Pulse Ox: Yes During the Procedure: clinician is wearing sterile gloves, cap, mask,& gown during insertion Central Line Prep: Chlorhexidine scrub Prep the Procedure Site: apply chloraprep to the skin using a back and forth scrubbing motion, allow prep to dry, drape the patient with a full body drape Ultrasound Used for Placement: No Central Line Lumen Inserted: triple Post Procedure: sutured in place, good blood return, all ports aspirated, flushed, capped, sterile dressing applied, guide wire removed and visualized, dressing is dated Patient Tolerated Procedure: well Complications: none - Intubation Time out performed: No sedative: Etomidate Mg Given: 20 Laryngoscope: Nighat ET Tube Size: Oral ET Tube Uncuffed: No Tube Secured Depth (cm): 24 Tube Secured Location: lips Tube Placement Confirmation: visualized tube passing through cords, equal breath sounds bilaterally, no breath sounds over epigastrium Patient Tolerated Procedure: no complications Intubation Complications: none Medical Decision Making - MDM Narrative Medical decision making narrative: Neutropenia, pancytopenia, fever, pneumonia and septic shock, altered mentation , respiratory failure - Medical Records Medical records reviewed: Yes I reviewed the patient's medical records. - Lab Data Lab results reviewed: Yes I reviewed the patient's lab results. Result diagrams: 07/30/17 10:37 07/30/17 10:37 Lab Results 07/30/17 07/30/17 07/30/17 Range/Units 09:55 10:35 10:37 WBC 0.3 L* D (4.3-11.1) K/mcL RBC 1.81 L (4.19-5.50) M/mcL Hgb 4.9 L* (12.9-16.9) g/dL Hct 14.6 L* (37.5-50.1) % MCV 80.7 L (83.0-100.0) fL MCH 27.1 L (28.0-33.3) pg MCHC 33.6 (31.6-35.5) g/dL RDW 12.5 (11.5-14.5) % Plt Count 4 L* (140-400) K/mcL MPV TNP Immature Gran % 0.0 (0-4) % Seg Neutrophils % 3.0 % Lymphocytes % 69.7 % Monocytes % 27.3 % Eosinophils % 0.0 % Basophils % 0.0 % Neutrophils # 0.0 L (1.6-8.9) K/mcL Lymphocytes # 0.2 L (0.6-4.6) K/mcL Monocytes # 0.1 (0.0-1.3) K/mcL Eosinophils # 0.0 (0.0-0.6) K/mcL Basophils # 0.0 (0.0-0.2) K/mcL Platelet Estimate Marked Decrease L (Normal) Anisocytosis 1+ A (Not Present) PT (9.4-12.1) Seconds INR APTT (26.0-36.0) Seconds ABG pH (7.32-7.45) pH Units ABG pCO2 (35-45) mmHg ABG pO2 (85-104) mmHg ABG HCO3 (21-27) mEq/L ABG Total CO2 (20-26) mEq/L ABG O2 Saturation (95-98) % ABG Base Excess (-2 to 3) mEq/L Respiration Rate O2 Delivery Device Blood Gas Modality Inspired O2 (1-15=lpm [id number]=%) Tidal Volume cc PEEP cm H2O Sodium (136-145) mEq/L Potassium (3.5-5.1) mEq/L Chloride (98-107) mEq/L Carbon Dioxide (23-29) mEq/L BUN (8-23) mg/dL Creatinine (0.70-1.30) mg/dL Est GFR ( Amer) (> 60) Est GFR (Non-Af Amer) (> 60) BUN/Creatinine Ratio (6-26) Glucose (70-105) mg/dL POC Glucose 80 (58-89) Calculated Osmolality (280-300) Lactic Acid (0.5-2.2) mmol/L Calcium (8.6-10.3) mg/dL Phosphorus (2.7-4.5) mg/dL Magnesium (1.6-2.6) mg/dL Total Bilirubin (0.3-1.0) mg/dL Direct Bilirubin (0.0-0.2) mg/dL Indirect Bilirubin (0.0-1.2) mg/dL AST (13-39) Units/L ALT (7-52) Units/L Alkaline Phosphatase (34-104) Units/L Troponin I (< 0.04) ng/mL B-Natriuretic Peptide (Less than 100) pg/mL Serum Total Protein (6.4-8.9) g/dL Albumin (3.5-5.7) g/dL Globulin (2.4-3.5) g/dL Albumin/Globulin Ratio (1.1-2.2) Random Cortisol mcg/dl Blood Type O POSITIVE Antibody Screen NEGATIVE Crossmatch See Detail 07/30/17 07/30/17 07/30/17 Range/Units 10:37 10:37 10:37 WBC (4.3-11.1) K/mcL RBC (4.19-5.50) M/mcL Hgb (12.9-16.9) g/dL Hct (37.5-50.1) % MCV (83.0-100.0) fL MCH (28.0-33.3) pg MCHC (31.6-35.5) g/dL RDW (11.5-14.5) % Plt Count (140-400) K/mcL MPV Immature Gran % (0-4) % Seg Neutrophils % % Lymphocytes % % Monocytes % % Eosinophils % % Basophils % % Neutrophils # (1.6-8.9) K/mcL Lymphocytes # (0.6-4.6) K/mcL Monocytes # (0.0-1.3) K/mcL Eosinophils # (0.0-0.6) K/mcL Basophils # (0.0-0.2) K/mcL Platelet Estimate (Normal) Anisocytosis (Not Present) PT 23.5 H (9.4-12.1) Seconds INR 2.1 APTT 32.6 (26.0-36.0) Seconds ABG pH (7.32-7.45) pH Units ABG pCO2 (35-45) mmHg ABG pO2 (85-104) mmHg ABG HCO3 (21-27) mEq/L ABG Total CO2 (20-26) mEq/L ABG O2 Saturation (95-98) % ABG Base Excess (-2 to 3) mEq/L Respiration Rate O2 Delivery Device Blood Gas Modality Inspired O2 (1-15=lpm [id number]=%) Tidal Volume cc PEEP cm H2O Sodium 134 L (136-145) mEq/L Potassium 3.7 (3.5-5.1) mEq/L Chloride 103 (98-107) mEq/L Carbon Dioxide 17 L (23-29) mEq/L BUN 40 H (8-23) mg/dL Creatinine 1.67 H (0.70-1.30) mg/dL Est GFR ( Amer) 51 L (> 60) Est GFR (Non-Af Amer) 42 L (> 60) BUN/Creatinine Ratio 24 (6-26) Glucose 69 L (70-105) mg/dL POC Glucose (58-89) Calculated Osmolality 286 (280-300) Lactic Acid 7.8 H* (0.5-2.2) mmol/L Calcium 8.0 L (8.6-10.3) mg/dL Phosphorus 4.2 (2.7-4.5) mg/dL Magnesium 1.5 L (1.6-2.6) mg/dL Total Bilirubin 0.9 (0.3-1.0) mg/dL Direct Bilirubin 0.4 H (0.0-0.2) mg/dL Indirect Bilirubin 0.5 (0.0-1.2) mg/dL AST 104 H (13-39) Units/L ALT 25 (7-52) Units/L Alkaline Phosphatase 28 L (34-104) Units/L Troponin I (< 0.04) ng/mL B-Natriuretic Peptide (Less than 100) pg/mL Serum Total Protein 5.2 L (6.4-8.9) g/dL Albumin 2.1 L (3.5-5.7) g/dL Globulin 3.1 (2.4-3.5) g/dL Albumin/Globulin Ratio 0.7 L (1.1-2.2) Random Cortisol > 60.0 mcg/dl Blood Type Antibody Screen Crossmatch 07/30/17 07/30/17 07/30/17 Range/Units 10:37 10:37 13:04 WBC (4.3-11.1) K/mcL RBC (4.19-5.50) M/mcL Hgb (12.9-16.9) g/dL Hct (37.5-50.1) % MCV (83.0-100.0) fL MCH (28.0-33.3) pg MCHC (31.6-35.5) g/dL RDW (11.5-14.5) % Plt Count (140-400) K/mcL MPV Immature Gran % (0-4) % Seg Neutrophils % % Lymphocytes % % Monocytes % % Eosinophils % % Basophils % % Neutrophils # (1.6-8.9) K/mcL Lymphocytes # (0.6-4.6) K/mcL Monocytes # (0.0-1.3) K/mcL Eosinophils # (0.0-0.6) K/mcL Basophils # (0.0-0.2) K/mcL Platelet Estimate (Normal) Anisocytosis (Not Present) PT (9.4-12.1) Seconds INR APTT (26.0-36.0) Seconds ABG pH 7.24 L (7.32-7.45) pH Units ABG pCO2 25 L (35-45) mmHg ABG pO2 465 H (85-104) mmHg ABG HCO3 11 L (21-27) mEq/L ABG Total CO2 12 L (20-26) mEq/L ABG O2 Saturation 100 H (95-98) % ABG Base Excess -15 L (-2 to 3) mEq/L Respiration Rate 18 O2 Delivery Device Adult Vent Blood Gas Modality ASSIST CONTROL Inspired O2 100.0 (1-15=lpm [id number]=%) Tidal Volume 450 cc PEEP 5 cm H2O Sodium (136-145) mEq/L Potassium (3.5-5.1) mEq/L Chloride (98-107) mEq/L Carbon Dioxide (23-29) mEq/L BUN (8-23) mg/dL Creatinine (0.70-1.30) mg/dL Est GFR ( Amer) (> 60) Est GFR (Non-Af Amer) (> 60) BUN/Creatinine Ratio (6-26) Glucose (70-105) mg/dL POC Glucose (58-89) Calculated Osmolality (280-300) Lactic Acid (0.5-2.2) mmol/L Calcium (8.6-10.3) mg/dL Phosphorus (2.7-4.5) mg/dL Magnesium (1.6-2.6) mg/dL Total Bilirubin (0.3-1.0) mg/dL Direct Bilirubin (0.0-0.2) mg/dL Indirect Bilirubin (0.0-1.2) mg/dL AST (13-39) Units/L ALT (7-52) Units/L Alkaline Phosphatase (34-104) Units/L Troponin I 0.07 H* (< 0.04) ng/mL B-Natriuretic Peptide 360 H (Less than 100) pg/mL Serum Total Protein (6.4-8.9) g/dL Albumin (3.5-5.7) g/dL Globulin (2.4-3.5) g/dL Albumin/Globulin Ratio (1.1-2.2) Random Cortisol mcg/dl Blood Type Antibody Screen Crossmatch - Radiology Data Radiology results reviewed: Yes I reviewed the patient's radiology results. X-rays consistent with pneumonia - EKG Data EKG #1 EKG attestation: Yes I reviewed and interpreted this EKG. EKG results narrative: sinus tachy, intervals appear to be within normal limits. Baseline wanted on presentation. Critical Care Time Critical Care Time: Yes Total Critical Care Time: 70 Attestation: Critical care performed: Time is exclusive of separately billable procedures. Time includes: direct patient care, patient reassessment, coordination of patient care, interpretation of data (laboratory data, radiology data, and respiratory data), review of patient's medical records, medical consultation and documentation of patient care. Procedures included in critical care time: Procedures excluded from critical care time:
[2017-07-30] MEDS ORDERED: Norepinephrine 4 MG in D5% in Water 250 ML IVC SCH (12:30)
[2017-07-30] MEDS ORDERED: *HR* Etomidate 20 MG/10 ML AMPUL IVP ONE ×2 (12:50→17:27)
--- NOTE | 2017-07-30 12:51 | Emergency Department Note ---
Disposition Clinical Impression: Pancytopenia, Neutropenic fever, Thrombocytopenia, Severe sepsis Fever Qualifiers: Fever type: unspecified Qualified Code(s): R50.9 - Fever, unspecified Anemia Qualifiers: Anemia type: unspecified type Qualified Code(s): D64.9 - Anemia, unspecified Leukemia Qualifiers: Leukemia type: unspecified Leukemia Active/Remission status: without remission Qualified Code(s): C95.90 - Leukemia, unspecified not having achieved remission Disposition: Admitted As Inpatient Condition: Critical General Adult HPI - General Chief complaint: ED Fever Stated complaint: Reported fever, weakness Time Seen by Provider: 07/30/17 09:54 Source: patient, family Mode of arrival: EMS Limitations: no limitations - History of Present Illness Pain Scale: 8 Associated symptoms: Reports: confusion, fever/chills, loss of appetite, malaise , shortness of breath Treatments Prior to Arrival: none - Related Data Home Medications Medication Instructions Recorded Confirmed Unable To Obtain [Unable to Obtain] 07/30/17 07/30/17 Allergies Allergy/AdvReac Type Severity Reaction Status Date / Time No Known Allergies Allergy Verified 07/26/17 12:40 Constitutional: Reports: fever, weakness. Denies: chills Cardiovascular: Reports: palpitations, dyspnea on exertion, orthopnea. Denies: chest pain, edema Respiratory: Denies: cough, dyspnea Gastrointestinal: Denies: nausea, vomiting, diarrhea Genitourinary: Denies: dysuria, frequency Musculoskeletal: Denies: back pain, neck pain Neurological: Denies: headache Endocrine: Reports: fatigue Past Medical History - Past Medical History Medical history: Reports: cancer, other Surgical history: Reports: orthopedic, other Psychiatric history: Reports: anxiety, depression - Social History Smoking Status: Current every day smoker Smokeless Tobacco Status: No Alcohol use: Reports: none Drug use: Reports: none Physical Exam - General Limitations: no limitations General appearance: alert, in no apparent distress Course Vital Signs Temperature 97.4 F L 07/30/17 09:53 Pulse Rate 119 07/30/17 09:53 Respiratory Rate 20 07/30/17 09:53 Blood Pressure 103/61 07/30/17 09:53 O2 Sat by Pulse Oximetry 97 07/30/17 09:53 Temperature 99.6 F 07/30/17 15:53 Pulse Rate 129 07/30/17 15:53 Respiratory Rate 29 07/30/17 15:53 Blood Pressure 71/52 07/30/17 15:53 O2 Sat by Pulse Oximetry 99 07/30/17 16:01 Oxygen Delivery Oxygen Delivery Ventilator Procedures - Intubation Time out performed: No sedative: Etomidate Mg Given: 20 Laryngoscope: Nighat ET Tube Size: 7 ET Tube Uncuffed: No Tube Secured Depth (cm): 23 Tube Secured Location: lips Tube Placement Confirmation: visualized tube passing through cords, equal breath sounds bilaterally, no breath sounds over epigastrium, confirmation by capnometry Patient Tolerated Procedure: well, no complications Intubation Complications: none Additional Comments: Observed by Dr. Tucker, Dr. Hastings, Dr. Andersen, Dr. Sparks. Medical Decision Making - Lab Data Result diagrams: 07/30/17 10:37 07/30/17 10:37 Lab Results 07/30/17 07/30/17 07/30/17 Range/Units 09:55 10:35 10:37 WBC 0.3 L* D (4.3-11.1) K/mcL RBC 1.81 L (4.19-5.50) M/mcL Hgb 4.9 L* (12.9-16.9) g/dL Hct 14.6 L* (37.5-50.1) % MCV 80.7 L (83.0-100.0) fL MCH 27.1 L (28.0-33.3) pg MCHC 33.6 (31.6-35.5) g/dL RDW 12.5 (11.5-14.5) % Plt Count 4 L* (140-400) K/mcL MPV TNP Immature Gran % 0.0 (0-4) % Seg Neutrophils % 3.0 % Lymphocytes % 69.7 % Monocytes % 27.3 % Eosinophils % 0.0 % Basophils % 0.0 % Neutrophils # 0.0 L (1.6-8.9) K/mcL Lymphocytes # 0.2 L (0.6-4.6) K/mcL Monocytes # 0.1 (0.0-1.3) K/mcL Eosinophils # 0.0 (0.0-0.6) K/mcL Basophils # 0.0 (0.0-0.2) K/mcL Platelet Estimate Marked Decrease L (Normal) Anisocytosis 1+ A (Not Present) PT (9.4-12.1) Seconds INR APTT (26.0-36.0) Seconds ABG pH (7.32-7.45) pH Units ABG pCO2 (35-45) mmHg ABG pO2 (85-104) mmHg ABG HCO3 (21-27) mEq/L ABG Total CO2 (20-26) mEq/L ABG O2 Saturation (95-98) % ABG Base Excess (-2 to 3) mEq/L Respiration Rate O2 Delivery Device Blood Gas Modality Inspired O2 (1-15=lpm [id number]=%) Tidal Volume cc PEEP cm H2O Sodium (136-145) mEq/L Potassium (3.5-5.1) mEq/L Chloride (98-107) mEq/L Carbon Dioxide (23-29) mEq/L BUN (8-23) mg/dL Creatinine (0.70-1.30) mg/dL Est GFR ( Amer) (> 60) Est GFR (Non-Af Amer) (> 60) BUN/Creatinine Ratio (6-26) Glucose (70-105) mg/dL POC Glucose 80 (58-89) Calculated Osmolality (280-300) Lactic Acid (0.5-2.2) mmol/L Calcium (8.6-10.3) mg/dL Phosphorus (2.7-4.5) mg/dL Magnesium (1.6-2.6) mg/dL Total Bilirubin (0.3-1.0) mg/dL Direct Bilirubin (0.0-0.2) mg/dL Indirect Bilirubin (0.0-1.2) mg/dL AST (13-39) Units/L ALT (7-52) Units/L Alkaline Phosphatase (34-104) Units/L Troponin I (< 0.04) ng/mL B-Natriuretic Peptide (Less than 100) pg/mL Serum Total Protein (6.4-8.9) g/dL Albumin (3.5-5.7) g/dL Globulin (2.4-3.5) g/dL Albumin/Globulin Ratio (1.1-2.2) Random Cortisol mcg/dl Blood Type O POSITIVE Antibody Screen NEGATIVE Crossmatch See Detail 07/30/17 07/30/17 07/30/17 Range/Units 10:37 10:37 10:37 WBC (4.3-11.1) K/mcL RBC (4.19-5.50) M/mcL Hgb (12.9-16.9) g/dL Hct (37.5-50.1) % MCV (83.0-100.0) fL MCH (28.0-33.3) pg MCHC (31.6-35.5) g/dL RDW (11.5-14.5) % Plt Count (140-400) K/mcL MPV Immature Gran % (0-4) % Seg Neutrophils % % Lymphocytes % % Monocytes % % Eosinophils % % Basophils % % Neutrophils # (1.6-8.9) K/mcL Lymphocytes # (0.6-4.6) K/mcL Monocytes # (0.0-1.3) K/mcL Eosinophils # (0.0-0.6) K/mcL Basophils # (0.0-0.2) K/mcL Platelet Estimate (Normal) Anisocytosis (Not Present) PT 23.5 H (9.4-12.1) Seconds INR 2.1 APTT 32.6 (26.0-36.0) Seconds ABG pH (7.32-7.45) pH Units ABG pCO2 (35-45) mmHg ABG pO2 (85-104) mmHg ABG HCO3 (21-27) mEq/L ABG Total CO2 (20-26) mEq/L ABG O2 Saturation (95-98) % ABG Base Excess (-2 to 3) mEq/L Respiration Rate O2 Delivery Device Blood Gas Modality Inspired O2 (1-15=lpm [id number]=%) Tidal Volume cc PEEP cm H2O Sodium 134 L (136-145) mEq/L Potassium 3.7 (3.5-5.1) mEq/L Chloride 103 (98-107) mEq/L Carbon Dioxide 17 L (23-29) mEq/L BUN 40 H (8-23) mg/dL Creatinine 1.67 H (0.70-1.30) mg/dL Est GFR ( Amer) 51 L (> 60) Est GFR (Non-Af Amer) 42 L (> 60) BUN/Creatinine Ratio 24 (6-26) Glucose 69 L (70-105) mg/dL POC Glucose (58-89) Calculated Osmolality 286 (280-300) Lactic Acid 7.8 H* (0.5-2.2) mmol/L Calcium 8.0 L (8.6-10.3) mg/dL Phosphorus 4.2 (2.7-4.5) mg/dL Magnesium 1.5 L (1.6-2.6) mg/dL Total Bilirubin 0.9 (0.3-1.0) mg/dL Direct Bilirubin 0.4 H (0.0-0.2) mg/dL Indirect Bilirubin 0.5 (0.0-1.2) mg/dL AST 104 H (13-39) Units/L ALT 25 (7-52) Units/L Alkaline Phosphatase 28 L (34-104) Units/L Troponin I (< 0.04) ng/mL B-Natriuretic Peptide (Less than 100) pg/mL Serum Total Protein 5.2 L (6.4-8.9) g/dL Albumin 2.1 L (3.5-5.7) g/dL Globulin 3.1 (2.4-3.5) g/dL Albumin/Globulin Ratio 0.7 L (1.1-2.2) Random Cortisol > 60.0 mcg/dl Blood Type Antibody Screen Crossmatch 07/30/17 07/30/17 07/30/17 Range/Units 10:37 10:37 13:04 WBC (4.3-11.1) K/mcL RBC (4.19-5.50) M/mcL Hgb (12.9-16.9) g/dL Hct (37.5-50.1) % MCV (83.0-100.0) fL MCH (28.0-33.3) pg MCHC (31.6-35.5) g/dL RDW (11.5-14.5) % Plt Count (140-400) K/mcL MPV Immature Gran % (0-4) % Seg Neutrophils % % Lymphocytes % % Monocytes % % Eosinophils % % Basophils % % Neutrophils # (1.6-8.9) K/mcL Lymphocytes # (0.6-4.6) K/mcL Monocytes # (0.0-1.3) K/mcL Eosinophils # (0.0-0.6) K/mcL Basophils # (0.0-0.2) K/mcL Platelet Estimate (Normal) Anisocytosis (Not Present) PT (9.4-12.1) Seconds INR APTT (26.0-36.0) Seconds ABG pH 7.24 L (7.32-7.45) pH Units ABG pCO2 25 L (35-45) mmHg ABG pO2 465 H (85-104) mmHg ABG HCO3 11 L (21-27) mEq/L ABG Total CO2 12 L (20-26) mEq/L ABG O2 Saturation 100 H (95-98) % ABG Base Excess -15 L (-2 to 3) mEq/L Respiration Rate 18 O2 Delivery Device Adult Vent Blood Gas Modality ASSIST CONTROL Inspired O2 100.0 (1-15=lpm th77-652=%) Tidal Volume 450 cc PEEP 5 cm H2O Sodium (136-145) mEq/L Potassium (3.5-5.1) mEq/L Chloride (98-107) mEq/L Carbon Dioxide (23-29) mEq/L BUN (8-23) mg/dL Creatinine (0.70-1.30) mg/dL Est GFR ( Amer) (> 60) Est GFR (Non-Af Amer) (> 60) BUN/Creatinine Ratio (6-26) Glucose (70-105) mg/dL POC Glucose (58-89) Calculated Osmolality (280-300) Lactic Acid (0.5-2.2) mmol/L Calcium (8.6-10.3) mg/dL Phosphorus (2.7-4.5) mg/dL Magnesium (1.6-2.6) mg/dL Total Bilirubin (0.3-1.0) mg/dL Direct Bilirubin (0.0-0.2) mg/dL Indirect Bilirubin (0.0-1.2) mg/dL AST (13-39) Units/L ALT (7-52) Units/L Alkaline Phosphatase (34-104) Units/L Troponin I 0.07 H* (< 0.04) ng/mL B-Natriuretic Peptide 360 H (Less than 100) pg/mL Serum Total Protein (6.4-8.9) g/dL Albumin (3.5-5.7) g/dL Globulin (2.4-3.5) g/dL Albumin/Globulin Ratio (1.1-2.2) Random Cortisol mcg/dl Blood Type Antibody Screen Crossmatch Attestation Statement - Attestation Attestation: I, Lyle Tucker DO, examined this patient [id number] and my medical decision-making was reviewed with (Dr. Isidoro Mayo), Resident Physician. I agree with the documented findings, disposition and treatment plan as described except to the extent set forth below. Please see my progress notes for details. Patient completed intubation without any complication. Direct visualization was established. Single-pass an attempt was made. This was done and the direct supervision of myself. Patient had bilateral breath sounds with appropriate color change on capnography machine. Chest x-ray confirmed placement. See my note dictated documentation of the patient's treatment course and care
[2017-07-30] MEDS ORDERED: Hydrocortisone Sodium Succ 100 MG/2 ML VIAL IVP ONE (12:54)
[2017-07-30 13:09] LABS: ABG Base Excess -15 mEq/L (-2 to 3); ABG HCO3 11 mEq/L (21-27); ABG Oxygen Saturation 100 % (95-98); ABG PCO2 25 mmHg (35-45); ABG PH 7.24 pH Units (7.32-7.45); ABG PO2 465 mmHg (85-104); ABG TCO2 12 mEq/L (20-26); Blood Gas Modality ASSIST CONTROL; Blood Gas PEEP 5 cm H2O; Blood Gas Respiration Rate 18; Blood Gas VT 450 cc
[2017-07-30] MEDS ORDERED: *HR* Rocuronium Bromide 50 MG/5 ML VIAL IVP ONE (13:10)
[2017-07-30] MEDS ORDERED: Acetaminophen 650 MG RECTAL SUPP RC ONE (13:10)
[2017-07-30] MEDS ORDERED: 0.9 % Sodium Chloride 1,000 ML ONE (13:10)
[2017-07-30] MEDS ORDERED: 0.9 % Sodium Chloride 1,000 ML IVC SCH (13:15)
[2017-07-30 13:47] LABS: ABG Base Excess -16 mEq/L (-2 to 3); ABG HCO3 12 mEq/L (21-27); ABG Oxygen Saturation 99 % (95-98); ABG PCO2 38 mmHg (35-45); ABG PO2 156 mmHg (85-104); ABG TCO2 13 mEq/L (20-26)
[2017-07-30] MEDS ORDERED: *HR* Dextrose 50 % in Water (Syg) 50 ML SYRINGE IVP ONE (13:54)
[2017-07-30] MEDS ORDERED: D5% in 0.45% NACL 1,000 ML IVC SCH (14:00)
[2017-07-30] MEDS ORDERED: Sodium Bicarbonate 50 MEQ in 0.45 % Sodium Chloride 1,000 ML IVC SCH (14:00)
[2017-07-30] MEDS ORDERED: Lacri-Lube 3.5 GM TUBE BOTH EYES PRN (14:23)
[2017-07-30] MEDS ORDERED: FentaNYL (PF) 1,000 MCG in 0.9 % Sodium Chloride 80 ML IVC SCH (14:30)
[2017-07-30] MEDS ORDERED: Pantoprazole 40 MG VIAL IVP SCH (14:30)
[2017-07-30] MEDS ORDERED: Dexmedetomidine HCl 400 MCG/100 ML MLS IVC SCH (14:30)
[2017-07-30] MEDS ORDERED: Ringers Solution, Lactated 1,000 ML ONE (15:04)
--- NOTE | 2017-07-30 15:04 | Pulmonology History & Physical ---
<Elmo Braun - Last Filed: 07/30/17 15:42> Date of Encounter: 07/30/17 Time of Encounter: 15:03 Assessment and Plan (1) Acute respiratory failure, unspecified whether with hypoxia or hypercapnia Status: Acute The patient presented in critical condition with acute decompensation in the ED Care was initiated in the ED - intubation, vasopressors, CPR, antibiotics, blood cultures Discussion with the family resulted in decision to change code status to DNR-CC and to compassionately extubate Qualifiers: Respiratory failure complication: unspecified whether with hypoxia or hypercapnia Qualified Code(s): J96.00 - Acute respiratory failure, unspecified whether with hypoxia or hypercapnia (2) Severe sepsis Status: Acute (3) Neutropenic fever Status: Acute (4) MDS (myelodysplastic syndrome) Status: Acute (5) Leukemia Status: Acute Qualifiers: Leukemia type: unspecified Leukemia Active/Remission status: without remission Qualified Code(s): C95.90 - Leukemia, unspecified not having achieved remission History of Present Illness Chief complaint: Fever HPI: Mr. Lopez is a 61 year old male with PMH of leukemia (diagnosed in Apr 2017) presented via EMS to the ED with fever, weakness, and confusion. [facility] and has been in the hospital recently with neutropenic fever. His blood counts have been low and he has been receiving transfusions as an out-patient. He was tachycardic, tachypnic, and borderline hypoxic. Concern for sepsis and neutropenic fever in ED and initated on broad-spectrum antibiotics. Blood cultures were drawn. Family was notified. Labs showed pancytopenia and transfusions were initiated in the ED. CVC was placed. BP became hypotensive, the patient became unresponsive, and the patient was then intubated. Levophed was initiated. A decision was made to admit the patient to the ICU. The patient At 1338 CPR was initiated and the patient was given epi x2, bicarb x2, and calcium. After one round of CPR there was return of spontaneous circulation. The mother and one brother arrived and they were made aware of his critical condition by both Dr. Tucker and Dr. Lamas. The patient was then transferred to the ICU. There was further discussion with the family about the patient's condition. They have ultimately agreed that the patient would no longer want any compressions or resuscitation. The patient's code status was changed to DNR-CC. The patient's other brother had arrived at this time. Through discussion it was decided to plan for compassionate extubation after spending some more time together as a family. Past Med Surg Social Fam HX - Past Medical History Medical history: cancer, other Psychiatric history: anxiety, depression - Past Surgical History Surgical History: orthopedic, other - Social History Smoking Status: Current every day smoker Smokeless Tobacco Status: No Alcohol use: none Drug use: none - Family History Grandmother Family Member Ethnicity: Non- Living Status: Hx Family Cancer: Yes (colon cancer) Medications and Allergies Unable To Obtain [Unable to Obtain] 07/30/17 [History] 3 Allergy/AdvReac Type Severity Reaction Status Date / Time No Known Allergies Allergy Verified 07/26/17 12:40 ROS unobtainable: due to endotracheal tube, due to mental status Physical Examination Vital Signs: Vital Signs, Last 4 Hours Temp Pulse Resp BP Pulse Ox 07/30/17 14:41 26 96 07/30/17 14:30 100.4 F H 134 26 73/49 97 07/30/17 13:58 138 18 115/53 94 General appearance: other (unresponsive) Effort: mildly labored Auscultation: bilateral: diminished breath sounds Cardiovascular: other (tachycardia) Extremities: no edema unable to assess due to mental status Results - Laboratory Findings CBC and BMP: 07/30/17 10:37 07/30/17 10:37 ABG ABG pH 7.10 pH Units (7.32-7.45) L* D 07/30/17 13:42 ABG pCO2 38 mmHg (35-45) 07/30/17 13:42 ABG pO2 156 mmHg (85-104) H D 07/30/17 13:42 ABG O2 Saturation 99 % (95-98) H 07/30/17 13:42 PT/INR, D-dimer PT 23.5 Seconds (9.4-12.1) H 07/30/17 10:37 Abnormal lab findings: Abnormal lab results WBC 0.3 K/mcL (4.3-11.1) L* D 07/30/17 10:37 RBC 1.81 M/mcL (4.19-5.50) L 07/30/17 10:37 Hgb 4.9 g/dL (12.9-16.9) L* 07/30/17 10:37 Hct 14.6 % (37.5-50.1) L* 07/30/17 10:37 MCV 80.7 fL (83.0-100.0) L 07/30/17 10:37 MCH 27.1 pg (28.0-33.3) L 07/30/17 10:37 Plt Count 4 K/mcL (140-400) L* 07/30/17 10:37 Neutrophils # 0.0 K/mcL (1.6-8.9) L 07/30/17 10:37 Lymphocytes # 0.2 K/mcL (0.6-4.6) L 07/30/17 10:37 Platelet Estimate Marked Decrease (Normal) L 07/30/17 10:37 Anisocytosis 1+ (Not Present) A 07/30/17 10:37 PT 23.5 Seconds (9.4-12.1) H 07/30/17 10:37 ABG pH 7.10 pH Units (7.32-7.45) L* D 07/30/17 13:42 ABG pO2 156 mmHg (85-104) H D 07/30/17 13:42 ABG HCO3 12 mEq/L (21-27) L 07/30/17 13:42 ABG Total CO2 13 mEq/L (20-26) L 07/30/17 13:42 ABG O2 Saturation 99 % (95-98) H 07/30/17 13:42 ABG Base Excess -16 mEq/L (-2 to 3) L 07/30/17 13:42 Sodium 134 mEq/L (136-145) L 07/30/17 10:37 Carbon Dioxide 17 mEq/L (23-29) L 07/30/17 10:37 BUN 40 mg/dL (8-23) H 07/30/17 10:37 Creatinine 1.67 mg/dL (0.70-1.30) H 07/30/17 10:37 Est GFR ( Amer) 51 (> 60) L 07/30/17 10:37 Est GFR (Non-Af Amer) 42 (> 60) L 07/30/17 10:37 Glucose 69 mg/dL (70-105) L 07/30/17 10:37 POC Glucose 93 (58-89) H 07/30/17 14:21 Lactic Acid 7.8 mmol/L (0.5-2.2) H* 07/30/17 10:37 Calcium 8.0 mg/dL (8.6-10.3) L 07/30/17 10:37 Magnesium 1.5 mg/dL (1.6-2.6) L 07/30/17 10:37 Direct Bilirubin 0.4 mg/dL (0.0-0.2) H 07/30/17 10:37 AST 104 Units/L (13-39) H 07/30/17 10:37 Alkaline Phosphatase 28 Units/L (34-104) L 07/30/17 10:37 Troponin I 0.07 ng/mL (< 0.04) H* 07/30/17 10:37 B-Natriuretic Peptide 360 pg/mL (Less than 100) H 07/30/17 10:37 Serum Total Protein 5.2 g/dL (6.4-8.9) L 07/30/17 10:37 Albumin 2.1 g/dL (3.5-5.7) L 07/30/17 10:37 Albumin/Globulin Ratio 0.7 (1.1-2.2) L 07/30/17 10:37 <Jonathan Lamas S - Last Filed: 07/30/17 19:30> Date of Encounter: 07/30/17 History of Present Illness HPI: Mr. Lopez is a 61 year old male All Systems: A 10-system review of systems was performed and is negative for pertinent findings except as documented above in the HPI. Physical Examination Vital Signs: Vital Signs, Last 4 Hours Temp Pulse Resp BP Pulse Ox 07/30/17 16:01 99 07/30/17 15:53 99.6 F 129 29 71/52 100 07/30/17 15:33 100.4 F H 131 26 89/57 100 07/30/17 15:20 100.2 F H 131 27 80/55 07/30/17 15:18 100.2 F H 132 27 80/55 Results - Laboratory Findings CBC and BMP: 07/30/17 10:37 07/30/17 10:37 ABG ABG pH 7.10 pH Units (7.32-7.45) L* D 07/30/17 13:42 ABG pCO2 38 mmHg (35-45) 07/30/17 13:42 ABG pO2 156 mmHg (85-104) H D 07/30/17 13:42 ABG O2 Saturation 99 % (95-98) H 07/30/17 13:42 PT/INR, D-dimer PT 23.5 Seconds (9.4-12.1) H 07/30/17 10:37 Abnormal lab findings: Abnormal lab results WBC 0.3 K/mcL (4.3-11.1) L* D 07/30/17 10:37 RBC 1.81 M/mcL (4.19-5.50) L 07/30/17 10:37 Hgb 4.9 g/dL (12.9-16.9) L* 07/30/17 10:37 Hct 14.6 % (37.5-50.1) L* 07/30/17 10:37 MCV 80.7 fL (83.0-100.0) L 07/30/17 10:37 MCH 27.1 pg (28.0-33.3) L 07/30/17 10:37 Plt Count 4 K/mcL (140-400) L* 07/30/17 10:37 Neutrophils # 0.0 K/mcL (1.6-8.9) L 07/30/17 10:37 Lymphocytes # 0.2 K/mcL (0.6-4.6) L 07/30/17 10:37 Platelet Estimate Marked Decrease (Normal) L 07/30/17 10:37 Anisocytosis 1+ (Not Present) A 07/30/17 10:37 PT 23.5 Seconds (9.4-12.1) H 07/30/17 10:37 ABG pH 7.10 pH Units (7.32-7.45) L* D 07/30/17 13:42 ABG pO2 156 mmHg (85-104) H D 07/30/17 13:42 ABG HCO3 12 mEq/L (21-27) L 07/30/17 13:42 ABG Total CO2 13 mEq/L (20-26) L 07/30/17 13:42 ABG O2 Saturation 99 % (95-98) H 07/30/17 13:42 ABG Base Excess -16 mEq/L (-2 to 3) L 07/30/17 13:42 Sodium 134 mEq/L (136-145) L 07/30/17 10:37 Carbon Dioxide 17 mEq/L (23-29) L 07/30/17 10:37 BUN 40 mg/dL (8-23) H 07/30/17 10:37 Creatinine 1.67 mg/dL (0.70-1.30) H 07/30/17 10:37 Est GFR ( Amer) 51 (> 60) L 07/30/17 10:37 Est GFR (Non-Af Amer) 42 (> 60) L 07/30/17 10:37 Glucose 69 mg/dL (70-105) L 07/30/17 10:37 POC Glucose 93 (58-89) H 07/30/17 14:21 Lactic Acid 7.8 mmol/L (0.5-2.2) H* 07/30/17 10:37 Calcium 8.0 mg/dL (8.6-10.3) L 07/30/17 10:37 Magnesium 1.5 mg/dL (1.6-2.6) L 07/30/17 10:37 Direct Bilirubin 0.4 mg/dL (0.0-0.2) H 07/30/17 10:37 AST 104 Units/L (13-39) H 07/30/17 10:37 Alkaline Phosphatase 28 Units/L (34-104) L 07/30/17 10:37 Troponin I 0.07 ng/mL (< 0.04) H* 07/30/17 10:37 B-Natriuretic Peptide 360 pg/mL (Less than 100) H 07/30/17 10:37 Serum Total Protein 5.2 g/dL (6.4-8.9) L 07/30/17 10:37 Albumin 2.1 g/dL (3.5-5.7) L 07/30/17 10:37 Albumin/Globulin Ratio 0.7 (1.1-2.2) L 07/30/17 10:37 - Attending Attestation I saw and evaluated this patient and my medical decision-making was reviewed with the Resident Physician. I agree with the documented findings, disposition and treatment plan as described except to the extent set forth below. We independently had [id number] contact with the patient I spent of 35 minutes of Critical Care time with this patient. It involved decision making of high complexity to assess, manipulate, and support vital organ system failure and/or to prevent further life threatening deterioration of the patient's condition. The time involved in the performance of separately reportable procedures was not counted toward critical care time. Patient seen and examined at bedside Labs, radiology, chart personally reviewed. LOCAL GOVERNMENT LEGISLATOR:Patient is comatose not even responding to painful stimuli concern for intracranial bleed after the fall yesterday in the setting of Thrombocytopenia patient is too unstable for CT head Pulm:Acute Hypoxic respiratory failure on Mechanical ventilation adjusted tidal volume and RR to optimize gas exchange and metabolic acidemia.. Patient has pneumonia RUL and RLL Cards: Septic shock secondary to pneumonia and neutropenic sepsis , patient is maxed out on Levophed FEN-GI:NPO Renal:: Labs and output reviewed ID: Neutropenic sepsis likely source pneumonia to do walton culture to continue broad spectrum antibiotics Heme/Onc:Patient has leukemia s/p severe bone marrow depression , neutropenia , anemia , profound thrombocytopenia to transfuse PRBC and platelets Endo: Glucose Monitored Integ/MSK: Skin Care per routine ICU Nursing Protocol to prevent ulcers. Lines: All lines examined without evidence of infection : Dispo: Spoke with family because of leukemia and severe bone marrow depression patient has poor prognosis not expected to survive this hospital stay . According to patient wishes family changed his code status to DNRCC CODE:DNRCC
[2017-07-30] MEDS ORDERED: Ringers Solution, Lactated 1,000 ML IVC SCH (15:15)
[2017-07-30 15:54] VITALS: BP 71/52
[2017-07-30] MEDS ORDERED: Lacri-Lube 3.5 GM TUBE BOTH EYES SCH (16:00)
--- NOTE | 2017-07-30 16:30 | Death Note ---
<Elmo Braun Stone - Last Filed: 07/30/17 16:24> Discharge Sum: Summary - Date and Time Date of admission: 07/30/17 13:38 Date of : 07/30/17 Time of : 16:18 - Summary Details: The patient had history of leukemia and MDS presented to the hospital with neutropenic fever and pancytopenia. This was his second admission for similar symptoms in 3 weeks. Work-up and treatment initiated in ED included antibiotics , blood cultures, vasopressors, intubation, and a round of CPR that resulted in return of spontaneous circulation. Despite this resuscitation the patient's prognosis remained very poor. The patient was transferred to the ICU. Further discussion with family ultimately led to changing code status to DNR-CC. The patient was compassionately extubated at 1601 and the patient at 1618. - Additional Data Confirmation of as documented by pronouncing clinician: no pulse, no respirations, no heart sounds Family: at bedside Attending physician: Jonathan Lamas MD Discharge Sum: Diag - PCOD Probable Cause of : Acute respiratory failure Discharge Sum: Prov - Provider Primary care physician: Getachew Fraser MD Admitting clinician: Jonathan Lamas Attending physician on admission: Jonathan Lamas <Jonathan Lamas - Last Filed: 07/30/17 19:34> Discharge Sum: Summary - Date and Time Date of admission: 07/30/17 13:38 - Additional Data Attending physician: Jonathan Lamas MD Discharge Sum: Prov - Provider Primary care physician: Patient diagnosis 1 . Pneumonia 2. Neutropenic septic shock 3 . Acute respiratory failure 4. Leukemia with Severe Bone marrow depression I agree with Resident documentation regarding the hospital course
[2017-07-30 20:25] LABS: Acinetobacter baumannii by PCR Not Detected (Not Detect); Candida albicans by PCR Not Detected (Not Detect); Candida glabrata by PCR Not Detected (Not Detect); Candida krusei by PCR Not Detected (Not Detect); Candida parapsilosis by PCR Not Detected (Not Detect); Candida tropicalis by PCR Not Detected (Not Detect); Enterococcus by PCR Not Detected (Not Detect); Escherichia coli by PCR Not Detected (Not Detect); Klebsiella oxytoca by PCR Not Detected (Not Detect); Klebsiella pneumoniae by PCR Not Detected (Not Detect); Pseudomonas aeruginosa by PCR ***DETECTED*** (Not Detect); Serratia marcescens by PCR Not Detected (Not Detect); Staphylococcus aureus by PCR Not Detected (Not Detect); Streptococcus agalactiae(B)PCR Not Detected (Not Detect); Streptococcus by PCR Not Detected (Not Detect); Streptococcus pneumoniae PCR Not Detected (Not Detect); Streptococcus pyogenes (A) PCR Not Detected (Not Detect); blaKPC Carbapenem-Resist Gene Not Detected (Not Detect)
[2017-07-30] MEDS ORDERED: Chlorhexidine Rinse 15 ML MOUTHWASH MM SCH (21:00)
--- NOTE | 2017-08-01 10:13 | Electrocardiograph Report ---
[address] [place] [address] Test Date: 2017-07-30 Pat Name: Flavio Lopez Department: 104 Room: [facility] Gender: M Equity Structurer: TRAVIS : 1955 Requested By: Lyle Tucker Order Number: [id number] Reading MD: Chiquita Zelaya Measurements Intervals Switzer Rate: 130 P: 26 SD: 120 QRS: 43 QRSD: 92 T: -30 QT: 242 QTc: 319 Interpretive Statements SINUS TACHYCARDIA ST DEVIATION AND MODERATE T-WAVE ABNORMALITY, CONSIDER ANTEROLATERAL ISCHEMIA Electronically Signed On 08-01-2017 10:11:55 EST by Chiquita Zelaya
--- NOTE | 2017-08-01 10:21 | Electrocardiograph Report ---
[place] [id number] Test Date: 2017-07-30 Pat Name: Flavio Martínezer Department: 104 Room: [facility] Gender: M Bee Worker: ROBERTA : 1955 Requested By: Lyle Tucker Order Number: [id number] Reading MD: Chiquita Zelaya Measurements Intervals Turner Rate: 144 P: PA: 0 QRS: 59 QRSD: 98 T: 21 QT: 313 QTc: 396 Interpretive Statements ARTIFACT LIMITS INTERPRETATION OF ECG Electronically Signed On 08-01-2017 10:20:00 EST by Chiquita Zelaya
== END 2017-07-30 17:28 | disposition expired | DRG 871 ==
LOC: EMEROO 09:52 → ICNU 13:38
PROVIDERS: ADMIT Internal Medicine Pulmonary Disease; ATTEND Internal Medicine Pulmonary Disease